=== PATIENT | female | born 1950 | race Caucasian/White ===

== ENCOUNTER 2020-06-29 13:18 | Day surgery (SDC) | payer MEDICARE, SELFPAY ==
[2020-06-23 15:18] VITALS: BMI 33.5
--- NOTE | 2020-06-28 10:55 | P.CONAN_ITS ---
Documented by User: Jory Sarabia 06/28/20 10:56 HPI - Anesthesia Eval Consult details Narrative: 70yo F for Colon[facility] Past Medical History Medical History Diabetes HTN (hypertension) Liver problem Family History Family History Father CVD (cardiovascular disease) Mother No problems noted. Surgical History Surgical History History of total abdominal hysterectomy Social History Social History Smoking Status: Never smoker Use of substances other than those prescribed or required for medical reasons: No Advance Directives Information Provided: No Recently lost weight without trying: No Meds Allergies Allergy/AdvReac Type Severity Reaction Status Date / Time latex Allergy Swelling Verified 06/23/20 15:33 Home Medications Medication Instructions Recorded Confirmed Type gemfibrozil 600 mg tablet 600 mg PO BID 05/28/20 06/23/20 History glipizide 10 mg tablet 10 mg PO BID 05/28/20 06/23/20 History hydrochlorothiazide 12.5 mg tablet 12.5 mg PO QAM 05/28/20 06/23/20 History metformin 1,000 mg tablet 1,000 mg PO BID 05/28/20 06/23/20 History Exam Exam Date and Time: June 28, 2020 1055 Height,Weight and Vital Signs: Height 5 ft 3.5 in Weight 87.09 kg Pertinent Lab Results Pertinent Lab Results: Laboratory Tests 03/09/20 10:15 Sodium 139 Potassium 4.3 Chloride 104 BUN 17 H Creatinine 0.84 Assessment and Plan Assessment Anesthesia Assessment: Chart Reviewed Documented by User: Juventino Fountain 06/29/20 13:39 [facility] Past Medical History Medical History Diabetes HTN (hypertension) Liver problem Family History Family History Father CVD (cardiovascular disease) Mother No problems noted. Surgical History Surgical History History of total abdominal hysterectomy Social History Social History Smoking Status: Never smoker Use of substances other than those prescribed or required for medical reasons: No Advance Directives Information Provided: No Recently lost weight without trying: No Meds Allergies Allergy/AdvReac Type Severity Reaction Status Date / Time latex Allergy Swelling Verified 06/23/20 15:33 Home Medications Medication Instructions Recorded Confirmed Type gemfibrozil 600 mg tablet 600 mg PO BID 05/28/20 06/23/20 History glipizide 10 mg tablet 10 mg PO BID 05/28/20 06/23/20 History hydrochlorothiazide 12.5 mg tablet 12.5 mg PO QAM 05/28/20 06/23/20 History metformin 1,000 mg tablet 1,000 mg PO BID 05/28/20 06/23/20 History Exam Airway Mallampati Class: III TM Dist: >3cm Neck ROM: Full Loose/Missing/Broken Teeth: No Heart: [id number] Lungs: cta b/l Assessment and Plan Assessment Anesthesia Assessment: Anesthesia Plan Discussed, PAT Visit and Chart Reviewed Final Anesthetic Review NPO: Yes ASA Class: III Final Preanesthetic Review: No Changes in Pt Med Stat, Meds/Allgs Chart Reviewed, Consent Obtained/Reviewed and Anes Risks/Benef Reviewed Patient Risk: Low Procedure Risk: Low Assessment/Block/Sedation in SS: Assess/Block/Sedation-SS Anesthetic Plan Anesthetic Plan: MAC: Disposition: Standard PACU
[2020-06-29 13:22] VITALS: BP 175/104; PULSE 98; RESP 20; TEMP 36.8; O2SAT 99; BMI 32.3
--- NOTE | 2020-06-29 13:31 | MHC.SHP ---
Pre-Procedural Eval Section A The patient is an INPATIENT: No The History & Physical has been completed within 30 days and I have reviewed it.: No Section B Chief Complaint: SCREENING Details of Present Illness: No family history of colon cancer. He has a normal bowel pattern, appetite is not great-she is depressed. Taking omeprazole, intermittently- she does not eat greasy food or meats. Typically she does not need omeprazole, but keep it on hand. Relevant Family History (Specify if Yes): No Relevant Social History: None Present Medications: see Short Stay Collaborative assessment Medical History: Significant History (type II diabetes. Hypertension. Cyst on Liver 2ndry to parcystic infection- Paracystic infection treated/resolved.. ) History of Previous Operations: Relevant previous surgery/procedure and date(s) (Total abdominal hysterectomy 1975) Allergies: Allergies Allergy/AdvReac Type Severity Reaction Status Date / Time latex Allergy Swelling Verified 06/23/20 15:33 Review of Systems Sugical H&P ROS: Negative: Constitution, Cardiovascular, Respiratory and Gastrointestinal Exam Surgical H&P Exam: Normal: Heart, Normal: Lungs, Normal: Extremities and Normal: Abdomen Plan Diagnosis/Plan: Unchanged Patient has been examined and remains a candidate for the planned procedure
[2020-06-29] MEDS: Lactated Ringers 1,000 ML 100 ML IVCONT (13:33)
[2020-06-29 13:39] VITALS: BP 154/91; PULSE 98; RESP 20; O2SAT 98
[2020-06-29 13:39] LABS: Glucose, Whole Blood 169 mg/dL (60-115)
[2020-06-29 14:29] VITALS: BP 149/75; PULSE 84; RESP 12; TEMP 36.6; O2SAT 98
[2020-06-29 14:44] VITALS: BP 160/96; PULSE 82; RESP 16; O2SAT 98
--- NOTE | 2020-06-29 17:50 | P.OP_ITS ---
Operative Note Operative Note Narrative: Date of procedure: 06/29/20 Pre-op diagnosis: Colon cancer screening Post-op diagnosis: other (Colon polyps, diverticulosis, hemorrhoids) Procedure: COLONOSCOPY TILL CECUM WITH BIOPSIES Consent: Indications for the procedure and potential complications of bleeding, perforation, reaction to medications and missed diagnosis were discussed with the patient and informed consent was obtained. Instrument: Olympus PCF H 190 L variable stiffness pediatric colonoscope Monitoring: Vital signs and clinical assessment, intermittent blood pressure monitoring, continuous EKG monitoring, Pulse oximetry and Carbon Dioxide monitoring were done throughout the procedure. Colon withdrawl time was 24 minutes. Procedure: The patient was placed in the left lateral decubitis position and pre-procedure medications were administered. After a digital rectal examination of the ano-rectum, the video colonoscope was inserted into the rectum and advanced through the colon to the cecum. The colonoscope was slowly withdrawn in a retrograde panoramic fashion and the colon mucosa was carefully examined including a retroflexed view of the rectum. Findings and interventions are described below. Procedure Difficulty: Narrowing with sharp turn in the sigmioid at 30 cms navigated with difficulty Findings: Terminal Ileum: Not evaluated Cecum: Normal Ascending Colon: Normal Transverse Colon: Two 4-5 mm sessile diminutive appearing polyps removed with a cold biopsy. Descending Colon: Moderate diverticulosis Sigmoid Colon: severe diverticulosis with luminal narrowing Rectum: Normal Ano-rectum: Small internal hemorrhoids Colon preparation:Good after some irrigation Impression and Post Procedure Diagnosis: Colonoscopy Findings: Two small polyps removed Moderate to severe diverticulosis seen in the left colon Small hemorrhoids on retroflexed exam. Plan: Await pathology results Patient has an appointment on 07/06/20 in the GI Clinic with DBEO Cueto. Repeat Colonoscopy interval based on path results - in 5 years if polyps are adenomatous and 10 years if polyps are hyperplastic. Above findings were reviewed with the patient and colon polyps and diverticulosis handouts were given in the discharge area Surgeon: Chloe Lee MD Anesthesia: MAC (Laurie Chong CRNA) Motion Picture Set Up Worker: Kike Queen Estimated blood loss (mL): 0 Pathology: other (A. TC polyps) Condition: stable Disposition: PACU
== END 2020-06-29 15:22 | disposition home or self-care (01) ==
PROVIDERS: PCP Family Medicine; Visit Provider Internal Medicine Gastroenterology
PROC: 0DJD8ZZ Inspection of Lower Intestinal Tract, Via Natural or Artificial Opening Endoscopic (ICD-10-PCS; CPT 45378; principal; 2020-06-29 13:50)
DX: Z12.11 Encounter for screening for malignant neoplasm of colon (principal); D12.3 Benign neoplasm of transverse colon; K57.30 Diverticulosis of large intestine without perforation or abscess without bleeding; K64.8 Other hemorrhoids; I10 Essential (primary) hypertension; E11.9 Type 2 diabetes mellitus without complications; Z79.4 Long term (current) use of insulin; Z79.899 Other long term (current) drug therapy; Z90.710 Acquired absence of both cervix and uterus; Z91.040 Latex allergy status
CPT/HCPCS: 45380; 82947; 88305

== ENCOUNTER 2020-07-15 11:03 | Outpatient (REF) | payer MEDICARE, SELFPAY ==
[2020-07-15 13:51] LABS: Anion Gap 18 (12-20); Blood Urea Nitrogen 27 mg/dL (9-16); Calcium 9.9 mg/dL (8.4-10.2); Carbon Dioxide 26 mmol/L (22-29); Chloride 103 mmol/L (96-108); Cholesterol 243 mg/dL; Estimated Glomerular Filt Rate 53; Glucose Fasting 168 mg/dL (60-99); HDL Cholesterol 39 mg/dL; LDL Cholesterol Calculated 169 mg/dl; Potassium 4.5 mmol/l (3.3-5.1); Sodium 142 mmol/L (135-145); Triglycerides 177 mg/dL
== END 2020-07-15 11:04 | disposition home or self-care (01) ==
LOC: HO.WFDLDS 11:03
PROVIDERS: Visit Provider Hospitalist
DX: E11.49 Type 2 diabetes mellitus with other diabetic neurological complication (principal); E78.00 Pure hypercholesterolemia, unspecified
CPT/HCPCS: 80048; 80061

== ENCOUNTER 2020-07-15 13:37 | Outpatient (REF) | payer MEDICARE, SELFPAY ==
--- NOTE | 2020-07-15 | MM_ITS ---
EXAMINATION: BONE DENSITOMETRY CLINICAL INDICATION: Encounter for screening for osteoporosis. COMPARISON: This is the patient's baseline examination. TECHNIQUE: Using a [employer] DXA System (software version: 13.1) manufactured by [employer], dual-energy x-ray absorptiometry was performed of the lumbar spine and left hip. The images are of good technical quality. Summary results are attached. FINDINGS: AP SPINE L1-L4: BMD 1.233 g/cm2, Z-score 1.4, T-score 0.4, normal. LEFT FEMUR, NECK: BMD 0.607 g/cm2, Z-score -1.9, T-score -3.1, osteoporosis. LEFT FEMUR, TOTAL: BMD 0.702 g/cm2, Z-score -1.5, T-score -2.4, osteopenia. IDENTIFIED RISK FACTORS: Early menopause, secondary osteoporosis, height loss hysterectomy, bilateral oophorectomy. HISTORY OF FRACTURE: None listed. MEDICATIONS: Vitamin D. MM/XR DEXA axial skeleton IMPRESSION: 1. DIAGNOSIS: Osteoporosis based on the lowest T-score value of -3.1 in the femoral neck applying World Health Organization criteria. 2. 10-YEAR FRACTURE RISK PREDICTION, FRAX: Major osteoporotic fracture (clinical spine, forearm, hip or shoulder) 18.1%. Hip fracture 5.8%. 3. Treatment Recommendations: NOF guidelines recommend consideration for treatment in postmenopausal women and men age 50 and older presenting with the following: -A hip or vertebral (clinical or morphometric) fracture. -T-score less than or equal to -2.5 at the femoral neck or spine after appropriate evaluation to exclude secondary causes. -Low bone mass at the hip or spine and a 10-year fracture probability by FRAX of greater than or equal to 3% for hip fracture or greater than or equal to 20% for major osteoporotic fracture based on the [place] adapted WHO algorithm. 4. Other Recommendations: All treatment decisions require clinical judgment and consideration of individual patient factors, including patient preferences, comorbidities, previous drug use, risk factors not captured in the FRAX model (e.g. frailty, falls, vitamin D deficiency, increased bone turnover, interval significant decline in bone density) and possible under or overestimation of fracture risk by FRAX. Additional medical evaluation for secondary cause of low bone mineral density may be appropriate. FUTURE SCAN RECOMMENDATION: People with diagnosed cases of osteoporosis or at high risk for fracture should have regular bone mineral density tests. For patients eligible for Medicare, routine testing is allowed once every 2 years. The testing frequency can be increased to one year for patients who have rapidly progressing disease, those who are receiving or discontinuing medical therapy to restore bone mass, or have additional risk factors.
--- NOTE | 2020-07-15 | MM_ITS ---
EXAMINATION: MM SCREENING DIGITAL BREAST TOMOSYNTHESIS, BILATERAL CLINICAL INFORMATION: Screening. Asymptomatic. Prior outside mammography from [place] unavailable. Age 70. No known family history breast cancer. The lifetime risk of breast cancer based on the Tyrer-Cuzick Model is 2%. COMPARISON: None. TECHNIQUE: Digital breast tomosynthesis is performed in both the craniocaudal and mediolateral oblique views along with computer-aided detection (CAD). Synthesized 2D images are generated from the tomosynthesis. Additional right CC and right cleavage view are provided FINDINGS: There are scattered areas of fibroglandular density (ACR BI-RADS breast composition Category b). There are no significant masses, abnormal calcifications, or other abnormalities. There is mild bilateral retroareolar duct ectasia. Dermal lesion overlies the posterior upper outer left breast. The skin contours are smooth. MM/MM tomosynthesis screening BI IMPRESSION: No mammographic evidence of malignancy. ASSESSMENT: BI-RADS 2: Benign RECOMMENDATION: Routine annual mammography screening. This patient's information was entered into a reminder system with a target due date for their next mammogram.
== END 2020-07-15 13:38 | disposition home or self-care (01) ==
LOC: HO.MAMMO 13:37
PROVIDERS: PCP Family Medicine; Visit Provider Family Medicine
DX: Z13.820 Encounter for screening for osteoporosis (principal); Z78.0 Asymptomatic menopausal state; Z79.899 Other long term (current) drug therapy; Z90.710 Acquired absence of both cervix and uterus; Z90.722 Acquired absence of ovaries, bilateral; Z12.31 Encounter for screening mammogram for malignant neoplasm of breast
CPT/HCPCS: 77063; 77067; 77080

== ENCOUNTER 2020-07-29 08:00 | Outpatient (REF) | payer MEDICARE, SELFPAY ==
[2020-07-29 12:10] LABS: Microalbum/Creatinine Ratio Ur 41.2 ug/mg cr
== END 2020-07-29 08:01 | disposition home or self-care (01) ==
LOC: HO.LAB 08:00
PROVIDERS: Visit Provider Family Medicine
DX: E11.49 Type 2 diabetes mellitus with other diabetic neurological complication (principal)
CPT/HCPCS: 82043

== ENCOUNTER 2020-12-09 14:00 | Outpatient (RCR) | payer MEDICARE, SELFPAY | END 2020-12-30 08:44 | disposition other institution (70) | LOC: HO.PTWFD 14:00 | PROVIDERS: Visit Provider Family Medicine | DX: S39.012D Strain of muscle, fascia and tendon of lower back, subsequent encounter (principal) | CPT/HCPCS: 97110; 97162; 97535 ==

== ENCOUNTER 2021-03-30 11:14 | Outpatient (REF) | payer MEDICARE, SELFPAY ==
--- NOTE | ~2021-03-30 | XR_ITS ---
EXAMINATION: CERVICAL AND LUMBAR SPINE X-RAYS CLINICAL INFORMATION: Pain COMPARISON: Previous chest and left rib x-ray April 2020 and mammogram June 2020 TECHNIQUE: 4 views of the cervical spine including swimmer's view and 3 views of the lumbar spine FINDINGS: Cervical spine: Bone alignment is normal. No fracture or dislocation is seen. There is evidence of degenerative spondylosis at C4-C5 and C5-C6. Prevertebral soft tissues are normal. Lumbar spine: Bone alignment is normal. No fracture or dislocation is seen. There is evidence of degenerative disc disease from L3-L4 to L5-S1. There is lower lumbar spine facet arthritis. There is degenerative spondylosis of the lower thoracic spine. There is evidence of atherosclerotic disease. There is curvilinear increased attenuation or calcifications with lucent center projecting over the right upper quadrant. When compared with prior chest x-ray this is stable and probably related to the liver. XR/XR cervical spine 3V IMPRESSION: Cervical spine: Degenerative spondylosis at C4-C5 and C5-C6. Lumbar spine: Multilevel degenerative changes. Stable right upper quadrant curvilinear calcifications with lucent center probably related to the liver from April 2020 chest and left rib x-rays. Correlation with clinical history is recommended. This could be better evaluated with CT of the liver if clinically indicated.
--- NOTE | ~2021-03-30 | XR_ITS ---
EXAMINATION: CERVICAL AND LUMBAR SPINE X-RAYS CLINICAL INFORMATION: Pain COMPARISON: Previous chest and left rib x-ray April 2020 and mammogram June 2020 TECHNIQUE: 4 views of the cervical spine including swimmer's view and 3 views of the lumbar spine FINDINGS: Cervical spine: Bone alignment is normal. No fracture or dislocation is seen. There is evidence of degenerative spondylosis at C4-C5 and C5-C6. Prevertebral soft tissues are normal. Lumbar spine: Bone alignment is normal. No fracture or dislocation is seen. There is evidence of degenerative disc disease from L3-L4 to L5-S1. There is lower lumbar spine facet arthritis. There is degenerative spondylosis of the lower thoracic spine. There is evidence of atherosclerotic disease. There is curvilinear increased attenuation or calcifications with lucent center projecting over the right upper quadrant. When compared with prior chest x-ray this is stable and probably related to the liver. XR/XR lumbar spine 2-3V IMPRESSION: Cervical spine: Degenerative spondylosis at C4-C5 and C5-C6. Lumbar spine: Multilevel degenerative changes. Stable right upper quadrant curvilinear calcifications with lucent center probably related to the liver from April 2020 chest and left rib x-rays. Correlation with clinical history is recommended. This could be better evaluated with CT of the liver if clinically indicated.
[2021-03-30 12:42] LABS: Estimated Average Glucose 151 mg/dL; Hemoglobin A1c % 6.9 %
[2021-03-30 13:04] LABS: Creatinine Urine 190.83 mg/dL; Microalbum/Creatinine Ratio Ur 26.2 ug/mg cr
[2021-03-30 13:05] LABS: Anion Gap 13 (12-20); Blood Urea Nitrogen 24 mg/dL (9-16); Carbon Dioxide 27 mmol/L (22-29); Chloride 106 mmol/L (96-108); Estimated Glomerular Filt Rate 39; Potassium 4.4 mmol/L (3.3-5.1); Sodium 142 mmol/L (135-145)
[2021-03-30 13:06] LABS: Alanine Aminotransferase 17 U/L (0-31); Albumin Level 4.4 g/dL (3.5-5.0); Alkaline Phosphatase 49 U/L (39-117); Aspartate Amino Transferase 18 U/L (5-31); Bilirubin Total 0.3 mg/dL (0.0-1.0); Glucose Fasting 174 mg/dL (60-99); Total Protein 7.1 g/dL (6.5-8.0)
== END 2021-03-30 11:15 | disposition home or self-care (01) ==
LOC: HO.WFDLDS 11:14
PROVIDERS: Absent Provider Chiropractor; PCP Family Medicine; Visit Provider Family Medicine
DX: Z00.00 Encounter for general adult medical examination without abnormal findings (principal); M54.2 Cervicalgia; M54.5 Low back pain; E11.49 Type 2 diabetes mellitus with other diabetic neurological complication; I10 Essential (primary) hypertension
CPT/HCPCS: 36415; 72040; 72100; 80053; 82043; 83036

== ENCOUNTER 2021-07-13 11:17 | Outpatient (REF) | payer MEDICARE, SELFPAY ==
[2021-07-13 14:39] LABS: Creatinine Urine 128.87 mg/dL; Microalbum/Creatinine Ratio Ur 59.7 ug/mg cr
[2021-07-13 14:40] LABS: Alanine Aminotransferase 15 U/L (0-31); Albumin Level 4.2 g/dL (3.5-5.0); Alkaline Phosphatase 50 U/L (39-117); Anion Gap 17 (12-20); Aspartate Amino Transferase 19 U/L (5-31); Bilirubin Total 0.3 mg/dL (0.0-1.0); Blood Urea Nitrogen 22 mg/dL (9-16); Calcium 9.4 mg/dL (8.4-10.2); Carbon Dioxide 24 mmol/L (22-29); Chloride 106 mmol/L (96-108); Estimated Glomerular Filt Rate 43; Glucose Fasting 110 mg/dL (60-99); Potassium 4.5 mmol/L (3.3-5.1); Sodium 142 mmol/L (135-145); Total Protein 6.9 g/dL (6.5-8.0)
== END 2021-07-13 11:18 | disposition home or self-care (01) ==
LOC: HO.WFDLDS 11:17
PROVIDERS: Visit Provider Family Medicine
DX: Z00.00 Encounter for general adult medical examination without abnormal findings (principal); E11.49 Type 2 diabetes mellitus with other diabetic neurological complication; I10 Essential (primary) hypertension
CPT/HCPCS: 36415; 80053; 82043

== ENCOUNTER 2021-07-20 11:11 | Outpatient (REF) | payer MEDICARE, SELFPAY ==
[2021-07-20 14:24] LABS: Creatinine Urine 126.57 mg/dL; Microalbum/Creatinine Ratio Ur 43.4 ug/mg cr
[2021-07-20 14:29] LABS: Estimated Average Glucose 143 mg/dL; Hemoglobin A1c % 6.6 %
[2021-07-20 14:32] LABS: Anion Gap 17 (12-20); Blood Urea Nitrogen 24 mg/dL (9-16); Calcium 9.4 mg/dL (8.4-10.2); Carbon Dioxide 22 mmol/L (22-29); Chloride 106 mmol/L (96-108); Cholesterol 203 mg/dL; Estimated Glomerular Filt Rate 42; Glucose Random 156 mg/dL (60-115); HDL Cholesterol 32 mg/dL; LDL Cholesterol Calculated 132 mg/dl; Potassium 4.2 mmol/L (3.3-5.1); Sodium 141 mmol/L (135-145); Triglycerides 195 mg/dL
== END 2021-07-20 11:12 | disposition home or self-care (01) ==
LOC: HO.WFDLDS 11:11
PROVIDERS: Visit Provider Family Medicine
DX: Z00.00 Encounter for general adult medical examination without abnormal findings (principal); I10 Essential (primary) hypertension; E11.9 Type 2 diabetes mellitus without complications
CPT/HCPCS: 36415; 80048; 80061; 82043; 83036

== ENCOUNTER 2021-09-17 13:57 | Outpatient (REF) | payer MEDICARE, SELFPAY ==
--- NOTE | ~2021-09-17 | XR_ITS ---
EXAMINATION: XR LEFT SHOULDER, LUMBAR SPINE AND LEFT HIP CLINICAL INFORMATION: Fall. Pain. COMPARISON: None. TECHNIQUE: Left hip 2 views. Lumbar spine 3 views. Left shoulder 4 views. FINDINGS: Left Hip: There is no visible acute fracture, dislocation or subluxation. There is a moderate-sized inferior left greater trochanter enthesophyte. The soft tissues are normal. Lumbar Spine: There is normal lumbar lordosis. The vertebral heights and alignment is normal. There is loss of L3-L4, L4-L5 and L5/S1 disc heights with moderate ventral spondylosis. Moderate ventral spondylosis seen at T12-L1 disc level. No acute fracture, lytic or sclerotic process seen. SI joints are symmetrical. Left Shoulder: There is no visible acute fracture, dislocation or subluxation seen. There are moderate enthesophytes along the AC joint, acromion and mild periarticular spurring along the glenohumeral joints The soft tissues are normal. XR/XR lumbar spine 2-3V IMPRESSION: Unremarkable left hip. Degenerative disc changes L4-L5 and L5-S1 disc levels with moderate ventral spondylosis. Mild degenerative changes left shoulder joint. No acute fracture or dislocation.
--- NOTE | ~2021-09-17 | XR_ITS ---
EXAMINATION: XR LEFT SHOULDER, LUMBAR SPINE AND LEFT HIP CLINICAL INFORMATION: Fall. Pain. COMPARISON: None. TECHNIQUE: Left hip 2 views. Lumbar spine 3 views. Left shoulder 4 views. FINDINGS: Left Hip: There is no visible acute fracture, dislocation or subluxation. There is a moderate-sized inferior left greater trochanter enthesophyte. The soft tissues are normal. Lumbar Spine: There is normal lumbar lordosis. The vertebral heights and alignment is normal. There is loss of L3-L4, L4-L5 and L5/S1 disc heights with moderate ventral spondylosis. Moderate ventral spondylosis seen at T12-L1 disc level. No acute fracture, lytic or sclerotic process seen. SI joints are symmetrical. Left Shoulder: There is no visible acute fracture, dislocation or subluxation seen. There are moderate enthesophytes along the AC joint, acromion and mild periarticular spurring along the glenohumeral joints The soft tissues are normal. XR/XR shoulder LT min 2V IMPRESSION: Unremarkable left hip. Degenerative disc changes L4-L5 and L5-S1 disc levels with moderate ventral spondylosis. Mild degenerative changes left shoulder joint. No acute fracture or dislocation.
--- NOTE | ~2021-09-17 | XR_ITS ---
EXAMINATION: XR LEFT SHOULDER, LUMBAR SPINE AND LEFT HIP CLINICAL INFORMATION: Fall. Pain. COMPARISON: None. TECHNIQUE: Left hip 2 views. Lumbar spine 3 views. Left shoulder 4 views. FINDINGS: Left Hip: There is no visible acute fracture, dislocation or subluxation. There is a moderate-sized inferior left greater trochanter enthesophyte. The soft tissues are normal. Lumbar Spine: There is normal lumbar lordosis. The vertebral heights and alignment is normal. There is loss of L3-L4, L4-L5 and L5/S1 disc heights with moderate ventral spondylosis. Moderate ventral spondylosis seen at T12-L1 disc level. No acute fracture, lytic or sclerotic process seen. SI joints are symmetrical. Left Shoulder: There is no visible acute fracture, dislocation or subluxation seen. There are moderate enthesophytes along the AC joint, acromion and mild periarticular spurring along the glenohumeral joints The soft tissues are normal. XR/XR hip LT min 2V IMPRESSION: Unremarkable left hip. Degenerative disc changes L4-L5 and L5-S1 disc levels with moderate ventral spondylosis. Mild degenerative changes left shoulder joint. No acute fracture or dislocation.
== END 2021-09-17 13:58 | disposition home or self-care (01) ==
LOC: HO.HMGCX 13:57
PROVIDERS: PCP Family Medicine; Visit Provider Physician Assistant
DX: M25.552 Pain in left hip (principal); M54.50 Low back pain, unspecified; M25.512 Pain in left shoulder
CPT/HCPCS: 72100; 73030; 73502

== ENCOUNTER 2021-09-19 15:38 | Outpatient (REF) | payer MEDICARE, SELFPAY ==
--- NOTE | ~2021-09-19 | MM_ITS ---
EXAMINATION: MM SCREENING DIGITAL BREAST TOMOSYNTHESIS, BILATERAL CLINICAL INFORMATION: Screening. Asymptomatic. The lifetime risk of breast cancer based on the Tyrer-Cuzick Model is 2%. COMPARISON: Mammography: 07/15/2020 (new baseline) TECHNIQUE: Digital breast tomosynthesis is performed in both the craniocaudal and mediolateral oblique views along with computer-aided detection (CAD). Synthesized 2D images are generated from the tomosynthesis. FINDINGS: There are scattered areas of fibroglandular density (ACR BI-RADS breast composition Category b). There are no significant masses, abnormal calcifications, or other abnormalities. Parenchymal pattern is similar to prior study. There is stable bilateral mild subareolar duct ectasia. Dermal lesion again seen overlying posterior outer left breast. There are no significant changes. MM/MM tomosynthesis screening BI IMPRESSION: There are no significant changes from prior study. ASSESSMENT: BI-RADS 2: Benign RECOMMENDATION: Routine annual mammography screening. This patient's information was entered into a reminder system with a target due date for their next mammogram.
== END 2021-09-19 15:39 | disposition home or self-care (01) ==
LOC: HO.MAMMO 15:38
PROVIDERS: PCP Family Medicine; Visit Provider Hospitalist
DX: Z12.31 Encounter for screening mammogram for malignant neoplasm of breast (principal)
CPT/HCPCS: 77063; 77067

== ENCOUNTER 2022-03-24 14:22 | Outpatient (REF) | payer MEDICARE, SELFPAY ==
[2022-03-24 16:42] LABS: Alanine Aminotransferase 10 U/L (0-31); Albumin Level 4.3 g/dL (3.5-5.0); Alkaline Phosphatase 51 U/L (39-117); Anion Gap 16 (12-20); Aspartate Amino Transferase 16 U/L (5-31); Bilirubin Total 0.5 mg/dL (0.0-1.0); Blood Urea Nitrogen 24 mg/dL (9-16); Calcium 9.6 mg/dL (8.4-10.2); Carbon Dioxide 28 mmol/L (22-29); Chloride 105 mmol/L (96-108); Cholesterol 218 mg/dL; Estimated Glomerular Filt Rate 48; Glucose Fasting 127 mg/dL (60-99); HDL Cholesterol 34 mg/dL; LDL Cholesterol Calculated 150 mg/dl; Potassium 4.5 mmol/L (3.3-5.1); Sodium 144 mmol/L (135-145); Triglycerides 171 mg/dL
== END 2022-03-24 14:23 | disposition home or self-care (01) ==
LOC: HO.HMGCLDS 14:22
PROVIDERS: PCP Family Medicine; Visit Provider Family Medicine
DX: Z00.00 Encounter for general adult medical examination without abnormal findings (principal); E78.5 Hyperlipidemia, unspecified
CPT/HCPCS: 36415; 80053; 80061

== ENCOUNTER 2022-07-18 11:37 | Outpatient (REF) | payer MEDICARE, SELFPAY ==
[2022-07-18 13:59] LABS: MANUAL DIFF FLAG NO
[2022-07-18 14:04] LABS: Basophils Percent Auto 0.5 % (0-2); Eosinophils Absolute Auto 0.1 X10*3/uL (0.0-0.4); Eosinophils Percent Auto 2.2 % (0-4); Hematocrit 36.3 % (37.0-47.0); Hemoglobin 11.6 g/dl (12.0-16.0); Imm Gran Abs Auto 0.02 X10*3/uL (0.00-0.03); Imm Gran Pct Auto 0.5 % (0.0-0.4); Lymphocytes Absolute Auto 1.5 X10*3/uL (1.2-4.9); Lymphocytes Percent Auto 37.2 % (20-40); Mean Corpuscular Hemoglobin 29.5 pg (27.0-33.0); Mean Corpuscular Volume 92.4 fL (80.0-98.0); Mean Platelet Volume 12.1 fL (9.4-12.3); Monocytes Absolute Auto 0.3 X10*3/uL (0.1-1.2); Monocytes Percent Auto 8.4 % (2-11); Neutrophils Absolute Auto 2.1 x10*3/uL (2.0-8.3); Neutrophils Percent Auto 51.2 % (45-73); Platelet Count 214 X10*3/uL (160-400); Red Blood Count 3.93 X10*6/uL (4.20-5.50)
[2022-07-18 14:14] LABS: Estimated Average Glucose 160 mg/dL; Hemoglobin A1c % 7.2 %
[2022-07-18 14:45] LABS: Alanine Aminotransferase 12 U/L (0-31); Albumin Level 4.3 g/dL (3.5-5.0); Alkaline Phosphatase 54 U/L (39-117); Anion Gap 16 (12-20); Aspartate Amino Transferase 16 U/L (5-31); Bilirubin Total 0.6 mg/dL (0.0-1.0); Blood Urea Nitrogen 25 mg/dL (9-16); Carbon Dioxide 27 mmol/L (22-29); Chloride 103 mmol/L (96-108); Cholesterol 194 mg/dL; Estimated Glomerular Filt Rate 46; Glucose Fasting 184 mg/dL (60-99); HDL Cholesterol 35 mg/dL; LDL Cholesterol Calculated 121 mg/dl; Potassium 4.9 mmol/L (3.3-5.1); Sodium 141 mmol/L (135-145); Triglycerides 191 mg/dL
== END 2022-07-18 11:38 | disposition home or self-care (01) ==
LOC: HO.WFDLDS 11:37
PROVIDERS: Visit Provider Nurse Practitioner Family
DX: E78.5 Hyperlipidemia, unspecified (principal); E11.9 Type 2 diabetes mellitus without complications
CPT/HCPCS: 36415; 80053; 80061; 83036; 85025

== ENCOUNTER 2022-09-21 15:05 | Outpatient (REF) | payer MEDICARE, SELFPAY ==
--- NOTE | ~2022-09-21 | MM_ITS ---
EXAMINATION: MM SCREENING DIGITAL BREAST TOMOSYNTHESIS, BILATERAL CLINICAL INFORMATION: Screening. Asymptomatic. The lifetime risk of breast cancer based on the Tyrer-Cuzick Model is 2%. COMPARISON: Mammography: 09/19/2021, 07/15/2020 (new baseline) TECHNIQUE: Digital breast tomosynthesis is performed in both the craniocaudal and mediolateral oblique views along with computer-aided detection (CAD). Synthesized 2D images are generated from the tomosynthesis. Additional bilateral MLO views are provided. FINDINGS: There are scattered areas of fibroglandular density (ACR BI-RADS breast composition Category b). There are no significant masses, abnormal calcifications, or other abnormalities. Parenchymal pattern is similar to prior studies. Mild bilateral anterior duct ectasia is similar to the prior studies. There is a dermal lesion overlying the posterior upper outer left breast. The axilla are unremarkable. No significant changes from prior studies. MM/MM tomosynthesis screening BI IMPRESSION: No mammographic evidence of malignancy. ASSESSMENT: BI-RADS 2: Benign RECOMMENDATION: Routine annual mammography screening. This patient's information was entered into a reminder system with a target due date for their next mammogram.
== END 2022-09-21 15:06 | disposition home or self-care (01) ==
LOC: HO.MAMMO 15:05
PROVIDERS: PCP Family Medicine; Visit Provider Family Medicine
DX: Z12.31 Encounter for screening mammogram for malignant neoplasm of breast (principal)
CPT/HCPCS: 77063; 77067

== ENCOUNTER 2022-11-16 15:14 | Outpatient (REF) | payer MEDICARE, SELFPAY ==
--- NOTE | ~2022-11-16 | XR_ITS ---
EXAMINATION: XR chest 2V CLINICAL INFORMATION: Reason for Exam R06.02 - Shortness of breath COMPARISON: Chest radiograph 05/14/2020 TECHNIQUE: 2 views of the chest FINDINGS: Clear lungs. No pneumothorax or pleural effusion. Unchanged cardiomediastinal silhouette. XR/XR chest 2V Impression: No acute cardiopulmonary findings.
== END 2022-11-16 15:15 | disposition home or self-care (01) ==
LOC: HO.XRAY 15:14
PROVIDERS: PCP Family Medicine; Visit Provider Family Medicine
DX: R07.81 Pleurodynia (principal); R06.02 Shortness of breath
CPT/HCPCS: 71046

== ENCOUNTER 2022-11-23 12:23 | Outpatient (REF) | payer MEDICARE, SELFPAY ==
[2022-11-23 14:14] LABS: Estimated Average Glucose 154 mg/dL
[2022-11-23 14:38] LABS: Appearance Urine Turbid; Color Urine Yellow; Glucose Urine UA Negative (Negative); Leukocyte Esterase Urine Moderate (2+) (Negative); Nitrite Urine Positive (Negative); UMIC TRIGGER UA YES; Urine Blood Moderate (2+) (Negative); Urine Ketones Negative (Negative); Urine Protein 30 (1+) mg/dL (Neg-Trace)
[2022-11-23 14:48] LABS: Bacteria Urine 3+ (None Seen); Hyaline Casts Urine 0-2 /LPF (0-2); WBC Clumps Urine Present; WBC Urine >50 /HPF (0-5)
[2022-11-23 15:05] LABS: Alanine Aminotransferase 15 U/L (0-31); Albumin Level 3.9 g/dL (3.5-5.0); Alkaline Phosphatase 50 U/L (39-117); Anion Gap 14 (12-20); Aspartate Amino Transferase 17 U/L (5-31); Bilirubin Total 0.4 mg/dL (0.0-1.0); Blood Urea Nitrogen 22 mg/dL (9-16); Calcium 9.5 mg/dL (8.4-10.2); Carbon Dioxide 24 mmol/L (22-29); Chloride 111 mmol/L (96-108); Cholesterol 235 mg/dL; Creatinine Urine 143.73 mg/dL; Estimated Glomerular Filt Rate 54; Glucose Fasting 142 mg/dL (60-99); HDL Cholesterol 34 mg/dL; LDL Cholesterol Calculated 151 mg/dl; Microalbum/Creatinine Ratio Ur 91.8 ug/mg cr; Potassium 4.6 mmol/L (3.3-5.1); Sodium 144 mmol/L (135-145); Total Protein 6.3 g/dL (6.5-8.0); Triglycerides 252 mg/dL
[2022-11-23 15:21] LABS: TSH reflex Free T4 1.41 uIU/mL (0.32-4.0)
== END 2022-11-23 12:24 | disposition home or self-care (01) ==
LOC: HO.WFDLDS 12:23
PROVIDERS: Visit Provider Family Medicine
DX: Z00.00 Encounter for general adult medical examination without abnormal findings (principal); R73.01 Impaired fasting glucose; I10 Essential (primary) hypertension
CPT/HCPCS: 36415; 80053; 80061; 81001; 82043; 83036; 84443

== ENCOUNTER 2023-05-16 15:37 | Outpatient (AMB) | payer MEDICARE, SELFPAY ==
--- NOTE | 2023-05-16 15:41 | A.OFFPC_ITS ---
Vital Signs 05/16/23 15:44 Height 5 ft 3 in Weight 190 lb BMI 33.7 BP 110/70 Blood Pressure Location Lt brachial Position Sitting Pulse 71 Pulse Source Pulse Oximeter Pulse Oximetry (%) 100 Oxygen Delivery Method Room Air Intake Visit Reasons: f/u diabetes and hypertensio Intake Note: Patient is here to follow up on diabetes and hypertension. Allergies latex Allergy (Verified 05/16/23 15:45) Swelling Tobacco use date assessed: 09/14/22 Dental Screening Dental Screen Date: 05/16/23 Did you have a dental visit in the last 12 months?: Yes Did you have a dental problem in the last 6 months where you did not have access to dental care?: No Was dental information given to patient?: Patient has dentist HPI f/u diabetes and hypertensio HPI Details 73 y/o female presents to f/u diabetes a nd hypertension. A1c today 05/16/23 7.3%, which had worsened from 7.0%. Pt was prescribed Trulicity and blood sugars had improved to controlled range. However, lewis of Trulicity had gone beyond what she can afford. Blood pressure today 110/70. She is on hydrochlorothiazide 12.5mg daily and enalapril 20mg b.i.d. Pt has UTI symptoms today. HPI Comments History of Present Illness Details Documentation assistance for Sherwin Champion MD, was provided by Jarrell Beltran,?Publications Inspector on 05/16/2023 4:18 PM RHIANNON. I, Dr. Champion, have read, observed, and verified documentation.? [facility] Medical History Diabetes Liver problem HTN (hypertension) Surgical History History of total abdominal hysterectomy Family History Father CVD (cardiovascular disease) Mother No problems noted. Social History Housing: Apartment Alcohol intake: never Patient Tobacco Use Status: Never used Tobacco e-Cigarette/Vaping Use: Never Used Second Hand Smoke Exposure: No service: No Current occupational status: retired Current occupational exposures/hazards: No Cognitive needs: No Hearing needs: Yes (hearing aide) Vision needs: Yes (glasses) Questionnaire Thrive Questionnaire Date Thrive assessed: 09/14/22 LESLEE-7 AMB Questionnaire LESLEE-7 Date LESLEE - 7 assessed: 09/14/22 Source: Developed by Drs. Bill Whittaker, Isamar Sutherland, Scott Lopez and colleagues, with an educational ray from [employer]. Review of Systems Const Denies chills, Denies fatigue, Denies fever(s), Denies headache(s) and Denies weakness ENT Denies dizziness and Denies headache(s) Card Denies chest pain, Denies lightheadedness, Denies dyspnea and Denies other (Palpitations) Resp Denies cough, Denies dyspnea, Denies wheezing and Denies other ( shortness of breath) Musc Denies numbness and Denies tingling Neuro Denies dizziness, Denies headache(s), Denies numbness, Denies tingling, Denies paresthesias and Denies weakness Psych Denies anxiety and Denies depression Endo Denies fatigue Aller/Immun Denies wheezing Physical exam (Primary Care) Vital Signs: Last Vital Signs Pulse 71 05/16/23 15:44 BP 110/70 05/16/23 15:44 Pulse Ox 100 05/16/23 15:44 Oxygen Delivery Method Room Air 05/16/23 15:44 BMI result Body Mass Index 33.7 Tobacco/Smoking Status: Tobacco use Status Tobacco use date assessed 09/14/22 05/16/23 15:43 Patient Tobacco Use Status Never used Tobacco 05/16/23 15:43 e-Cigarette/Vaping Use Never Used 05/16/23 15:43 Thrive Assessment: Date of Thrive Assessment Date Thrive assessed 09/14/22 05/16/23 15:43 Const General: no acute distress and well developed Nutritional Appearance: well nourished Orientation/consciousness: patient oriented x3 HENMT Head: Yes normocephalic and Yes atraumatic Eyes General: appearance normal, both eyes and all related structures Pupils: Equal, round and reactive pupils present EOM: EOMs intact bilaterally Resp Effort & Inspection: normal respiratory effort Auscultation: clear to auscultation bilaterally Cardio Rate: regular rate Rhythm: regular rhythm Heart sounds: S1 normal heart sound present, S2 normal heart sound present, no gallops, no murmurs and no rubs Neuro General: patient oriented x3 and gait normal Cranial nerves: Yes Equal, round and reactive pupils present Psych Affect: normal affect Results AMB Urinalysis Dipstick UR Leukocytes Moderate Last Edit by Naomi Wood CMA on 05/16/23 16:03 UR Nitrite Negative Last Edit by Naomi Wood CMA on 05/16/23 16:03 UR Urobilinogen Normal Last Edit by Naomi Wood CMA on 05/16/23 16:03 UR Protein 30 Last Edit by Naomi Wood CMA on 05/16/23 16:03 UR Ph 6.0 Last Edit by Naomi Wood CMA on 05/16/23 16:03 UR Blood Small Last Edit by Naomi Wood CMA on 05/16/23 16:03 UR Specific [place] 1.015 Last Edit by Naomi Wood CMA on 05/16/23 16:0 3 UR Ketone Negative Last Edit by Naomi Wood CMA on 05/16/23 16:03 UR Bilirubin Negative Last Edit by Naomi Wood CMA on 05/16/23 16:03 UR Glucose Negative Last Edit by Naomi Wood CMA on 05/16/23 16:03 AMB Hemoglobin A1c AMB Hemoglobin A1c 7.3 % Last Edit by Naomi Wood CMA on 05/16/23 16:19 Results Reviewed Results Reviewed: Laboratory Last Values Hgb A1c (Clinic) 7.3 % (4.0-6.0) H 05/16/23 16:18 Urine pH (Clinic) 6.0 05/16/23 15:59 Specific [place] (Clinic) 1.015 05/16/23 15:59 Ur Protein (Clinic) 30 05/16/23 15:59 Ur Ketones (Clinic) Negative 05/16/23 15:59 Urine Blood (Clinic) Small 05/16/23 15:59 Urine Nitrite Negative 05/16/23 15:59 Urine Bilirubin (Clinic) Negative 05/16/23 15:59 Urobilinogen (Clinic) Normal 05/16/23 15:59 Leukocyte Esterase (Clinic) Moderate 05/16/23 15:59 Urine Glucose (Clinic) Negative 05/16/23 15:59 Assessment and Plan Assessment & Plan (1) Essential hypertension: Code(s): I10 - Essential (primary) hypertension Plan: Blood pressure is controlled. Goal is less than 140/90 Continue current medications (2) Diabetes type 2, controlled: Onset Date: Unknown Code(s): E11.9 - Type 2 diabetes mellitus without complications Qualifiers: Diabetes mellitus complication detail: with other neurological c omplication Diabetes mellitus complication status: with neurologic complications Diabetes mellitus correction insulin use: without assistant terminal manager use Qualified Code(s): E11.49 - Type 2 diabetes mellitus with other diabetic neurological complication Plan: A1c had been controlled after adding Trulicity. However, insurance is telling her she has not met her deductible and she is now on able to afford the higher cost of this medication so she has not had and her A1c shows that she is back out of control. Asking medical claims examiner to look into prior authorization or any other options as this medications has helped when many others did not. (3) UTI (urinary tract infection): Code(s): N39.0 - Urinary tract infection, site not specified Plan: In patient notes some dysuria and her urine dip today is suspicious for UTI. She has tolerated Bactrim DS in the past and this has helped with prior UTIs. I resend a script for Bactrim. Orders: Orders AMB Urinalysis Dipstick Today N39.0 - Urinary tract infection, site not specified AMB Hemoglobin A1c Today Z13.9 - Encounter for screening, unspecified Medications: Changed From dulaglutide (Trulicity) 0.75 mg (0.5 mL) subcut QWEEK 28 days 2 mL 4RF To dulaglutide 1.5 mg (0.5 mL) subcut QWEEK 2 mL 4RF 28 days Refilled sulfamethoxazole-trimethoprim 800-160 mg (Bactrim DS) 1 tab PO Q12H 10 tabs 0RF 5 days trazodone 25 mg (1/2 x 50 mg) PO BEDTIME PRN 15 tabs 0RF sleep 30 days Coding Level of Care Code Est Pt Level 3 (20079) Diagnoses Essential hypertension I10 Controlled type 2 diabetes mellitus with other neurologic complication, without long-term current use of insulin E11.49 Diabetes mellitus complication detail: with other neurological complication Diabetes mellitus complication status: with neurologic complications Diabetes mellitus assistant terminal manager insulin use: without correction use UTI (urinary tract infection) N39.0
[2023-05-16 15:44] VITALS: BP 110/70; PULSE 71; O2SAT 100; BMI 33.7
== END 2023-05-16 16:40 | disposition home or self-care (01) ==
PROVIDERS: PCP Family Medicine; Visit Provider Family Medicine
DX: I10 Essential (primary) hypertension (principal); E11.49 Type 2 diabetes mellitus with other diabetic neurological complication; N39.0 Urinary tract infection, site not specified; R30.0 Dysuria
CPT/HCPCS: 81002; 83036; 99213

== ENCOUNTER 2023-06-25 12:48 | Outpatient (REF) | payer MEDICARE, SELFPAY ==
[2023-06-25 14:22] LABS: Estimated Average Glucose 154 mg/dL
[2023-06-25 14:49] LABS: Alanine Aminotransferase 15 U/L (0-31); Albumin Level 4.2 g/dL (3.5-5.0); Alkaline Phosphatase 41 U/L (39-117); Anion Gap 16 (12-20); Aspartate Amino Transferase 17 U/L (5-31); Bilirubin Total 0.5 mg/dL (0.0-1.0); Blood Urea Nitrogen 27 mg/dL (9-16); Carbon Dioxide 26 mmol/L (22-29); Chloride 106 mmol/L (96-108); Estimated Glomerular Filt Rate 47; Glucose Random 137 mg/dL (60-115); Potassium 4.3 mmol/L (3.3-5.1); Sodium 144 mmol/L (135-145); Total Protein 6.9 g/dL (6.5-8.0)
== END 2023-06-25 12:49 | disposition home or self-care (01) ==
LOC: HO.WFDLDS 12:48
PROVIDERS: Visit Provider Family Medicine
DX: Z00.00 Encounter for general adult medical examination without abnormal findings (principal); E11.9 Type 2 diabetes mellitus without complications
CPT/HCPCS: 36415; 80053; 83036

== ENCOUNTER 2023-06-29 16:07 | Outpatient (AMB) | payer MEDICARE, SELFPAY ==
[2023-06-29 16:12] VITALS: BP 116/74; PULSE 78; O2SAT 100; BMI 34.5
--- NOTE | 2023-06-29 16:12 | A.OFFPC_ITS ---
Vital Signs 06/29/23 16:12 Height 5 ft 3 in Weight 195 lb BMI 34.5 BP 116/74 Blood Pressure Location Lt brachial Position Sitting Pulse 78 Pulse Source Pulse Oximeter Pulse Oximetry (%) 100 Oxygen Delivery Method Room Air Intake Visit Reasons: f/u diabetes Allergies latex Allergy (Verified 05/16/23 15:45) Swelling Tobacco use date assessed: 09/14/22 HPI f/u diabetes HPI Details Pt presents to f/u diabetes. Had been in good control with metformin, glipizide and Trulicity but more recently had not been able to obtain this as insurance says she was not meeting her deductible and lewis of medication had gone far beyond her ability to afford it. Last A1c 7.3% 05/16/23 which had worsened from 7.0%. Pt has complaints of ongoing dry scalp. Blood pressure today 116/74. She is on hydrochlorothiazide 12.5mg daily. [facility] Medical History Diabetes Liver problem HTN (hypertension) Surgical History History of total abdominal hysterectomy Family History Father CVD (cardiovascular disease) Mother No problems noted. Social History Housing: Apartment Alcohol intake: never Patient Tobacco Use Status: Never used Tobacco e-Cigarette/Vaping Use: Never Used Second Hand Smoke Exposure: No service: No Current occupational status: retired Current occupational exposures/hazards: No Cognitive needs: No Hearing needs: Yes (hearing aide) Vision needs: Yes (glasses) Questionnaire Thrive Questionnaire Date Thrive assessed: 09/14/22 LESLEE-7 AMB Questionnaire LESLEE-7 Date LESLEE - 7 assessed: 09/14/22 Source: Developed by Drs. Bill Whittaker, Isamar Sutherland, Scott Lopez and colleagues, with an educational ray from [employer]. Physical exam (Primary Care) Vital Signs: Last Vital Signs Pulse 78 06/29/23 16:12 BP 116/74 06/29/23 16:12 Pulse Ox 100 06/29/23 16:12 Oxygen Delivery Method Room Air 06/29/23 16:12 BMI result Body Mass Index 34.5 Tobacco/Smoking Status: Tobacco use Status Tobacco use date assessed 09/14/22 06/29/23 16:16 Patient Tobacco Use Status Never used Tobacco 06/29/23 16:16 e-Cigarette/Vaping Use Never Used 06/29/23 16:16 Thrive Assessment: Date of Thrive Assessment Date Thrive assessed 09/14/22 06/29/23 16:16 Assessment and Plan Assessment & Plan (1) Diabetes type 2, controlled: Onset Date: Unknown Code(s): E11.9 - Type 2 diabetes mellitus without complications Qualifiers: Diabetes mellitus complication detail: with other neurological complication Diabetes mellitus complication status: with neurologic complications Diabetes mellitus terminal clerk insulin use: without skilled nursing use Qualified Code(s): E11.49 - Type 2 diabetes mellitus with other diabetic neurological complication Plan: A1c?7.0%.??Fairly?good?control.??Goal?is?less?than?7.0% However,?patient?has?wanted?to?discontinue?metformin?and?use?Trulicity. Her?insurance?says?that?they?have?approved?her?prior?authorization?but?she?still ?has?an?extremely?high deductible?before?they?will?cover?the?cost.??Almost?300?dollars. Will?try?oral?semaglutide (RYbesus). If?unable?to?get?this?will?use?Januvia (2) Hypertension: Code(s): I10 - Essential (primary) hypertension Plan: Blood?pressure?is?well?controlled.??Goal?is?less?than?140/90 Continue?current?medication?regimen Gave?patient?a?blood?pressure?monitor?for?checking?her?pressures?at?home (3) Dry scalp: Code(s): R23.8 - Other skin changes Plan: Ketoconazole?hel ped?but?then?began?to?dry?out?her?scalp.??She?can?use?this?less?frequently. Every?2?weeks Medications: New semaglutide (Rybelsus) 3 mg PO DAILY 30 days 30 tabs 2RF blood pressure monitor Automatic, Digital. Dx: I10. Daily As directed, 999 days/lifetime 1 ea 0RF I10 - Essential (primary) hypertension Changed From ketoconazole 2% 1 appl topical 3XW 14 days 120 mL 0RF To ketoconazole 2% 1 appl topical .every 2 weeks 28 days 120 mL 0RF Refilled blood sugar diagnostic ([employer] Verio test strips) As directed 200 ea 4RF DX: E11.9, test blood sugar twice a day, 90 day E11.69 - Type 2 diabetes mellitus with other specified complication, E66.9 - Obesity, unspecified lancets ([employer] Delica Plus Lancet) 2 times a day As directed, 90 days 200 ea 3RF E11.9 - Type 2 diabetes mellitus without complications blood-glucose meter ([employer] Verio Flex Meter) As directed, 999 days 1 ea 0RF E11.9 - Type 2 diabetes mellitus without complications Discontinued dulaglutide Discontinued Reason: Doctor's Order 1.5 mg (0.5 mL) subcut QWEEK 28 days 2 mL 4RF Coding Level of Care Code Est Pt Level 4 (71195) Diagnoses Controlled type 2 diabetes mellitus with other neurologic complication, without long-term current use of insulin E11.49 Diabetes mellitus complication detail: with other neurological complication Diabetes mellitus complication status: with neurologic complications Diabetes mellitus terminal clerk insulin use: without terminal clerk use Hypertension I10 Dry scalp R23.8
== END 2023-06-29 16:55 | disposition home or self-care (01) ==
PROVIDERS: PCP Family Medicine; Visit Provider Family Medicine
DX: E11.49 Type 2 diabetes mellitus with other diabetic neurological complication (principal); I10 Essential (primary) hypertension; R23.8 Other skin changes
CPT/HCPCS: 99214

== ENCOUNTER 2023-08-17 08:44 | Outpatient (AMB) | payer MEDICARE, SELFPAY ==
--- NOTE | 2023-08-17 09:27 | MHC.PC.OV ---
Vital Signs 08/17/23 09:28 08/17/23 10:02 Height 5 ft 3 in Weight 198 lb 6 oz BMI 35.1 BP 144/78 H 126/60 Blood Pressure Location Rt brachial Rt brachial Position Sitting Sitting Respiration 13 Pulse 94 Pulse Source Pulse Oximeter Temp 97.4 F Temp Source Temporal Artery Scan Pulse Oximetry (%) 99 Oxygen Delivery Method Room Air Intake Visit Reasons: Runny nose, Sore throat, Headache Intake Note: Patient wants to make sure it isn't RSV due to her having new twin grandaughters. Human Resources Assistant Manager Required: No Accompanied by: Self / Same As Patient Allergies latex Allergy (Verified 08/17/23 09:44) Swelling Medication List - Last Reconciled 08/17/23 by Martha Dos Santos CNP alendronate 70 mg PO QWEEK 90 days atorvastatin 80 mg PO BEDTIME 90 days blood pressure monitor Automatic, Digital. Dx: I10. Daily As directed, 999 days/lifetime blood sugar diagnostic ([employer] Verio test strips) As directed blood-glucose meter ([employer] Verio Flex Meter) As directed, 999 days cetirizine 10 mg PO DAILY PRN 30 days citalopram 10 mg PO DAILY enalapril maleate 20 mg PO BID 90 days ezetimibe 10 mg PO DAILY fenofibrate 160 mg PO DAILY 30 days fluticasone propionate 50 mcg/actuation (Flonase Allergy Relief) 1 spray intranasal Q12H 30 days glipizide 10 mg PO BID hydrochlorothiazide 12.5 mg PO DAILY 90 days ketoconazole 2% 1 appl topical .every 2 weeks 28 days lancets ([employer] Delica Plus Lancet) 2 times a day As directed, 90 days loperamide (Imodium A-D) 2 mg PO Q6H PRN 14 days metformin 850 mg PO BID pantoprazole 20 mg PO DAILY semaglutide (Rybelsus) 3 mg PO DAILY 30 days sulfamethoxazole-trimethoprim 800-160 mg (Bactrim DS) 1 tab PO Q12H 5 days trazodone 25 mg (1/2 x 50 mg) PO BEDTIME PRN 30 days Tobacco use date assessed: 08/17/23 Fall risk assessment: No Falls in past year Last assessed Fall Risk: 08/17/23 Dental Screening Dental Screen Date: 08/17/23 Did you have a dental visit in the last 12 months?: Yes Did you have a dental problem in the last 6 months where you did not have access to dental care?: No Was dental information given to patient?: Patient has dentist HPI HPI Comments History of Present Illness Details 73-year-old female presents with complaints of headache, runny nose, intermittent non productive cough, and sore/itchy throat. Her symptoms have been ongoing for the past one and half week and have progressively worsened. She reports a little chill, no fever, body aches, fatigue, or weakness. No known sick contact. She has been taking tylenol which has been providing some relief. She notes that she is up-to-date on her COVID-19 and influenza vaccines. [facility] Medical History Diabetes Liver problem HTN (hypertension) Surgical History History of total abdominal hysterectomy Family History Father CVD (cardiovascular disease) Mother No problems noted. Social History Housing: Apartment Alcohol intake: never Patient Tobacco Use Status: Never used Tobacco e-Cigarette/Vaping Use: Never Used Second Hand Smoke Exposure: No service: No Current occupational status: retired Current occupational exposures/hazards: No Cognitive needs: No Hearing needs: Yes (hearing aide) Vision needs: No (glasses) Questionnaire Thrive Questionnaire Date Thrive assessed: 09/14/22 LESLEE-7 AMB Questionnaire LESLEE-7 Date LESLEE - 7 assessed: 09/14/22 Source: Developed by Drs. Bill Whittaker, Isamar Sutherland, Scott Lopez and colleagues, with an educational ray from [employer]. Review of Systems Const Details: Const Denies chills, Denies fatigue, Denies fever(s), Denies headache(s) and Denies weakness ENT Reports as per HPI Card Denies chest pain, Denies lightheadedness, Denies dyspnea and Denies other (Palpitations) Resp Denies cough, Denies dyspnea, Denies wheezing and Denies other ( shortness of breath) GI Denies abdominal pain, Denies melena, Denies hematochezia, Denies change in bowel habits, Denies dyspepsia and Denies nausea Denies hematuria and Denies dysuria Musc Denies abnormal gait, Denies myalgias, Denies arthralgias, Denies numbness and Denies tingling Skin/Breast Denies rash, Denies unusual bruising and Denies wounds Neuro Denies abnormal gait, Denies dizziness, Denies headache(s), Denies memory loss, Denies numbness, Denies Sensory deficit (Neuro), Denies tingling and Denies weakness Psych Denies anxiety, Denies depression, Denies memory loss Endo Denies cold intolerance, Denies fatigue, Denies heat intolerance, Denies polydipsia and Denies polyuria Aller/Immun Denies wheezing Physical exam (Primary Care) Vital Signs: Last Vital Signs Temp 97.4 F 08/17/23 09:28 Pulse 94 08/17/23 09:28 Resp 13 08/17/23 09:28 BP 144/78 H 08/17/23 09:28 Pulse Ox 99 08/17/23 09:28 Oxygen Delivery Method Room Air 08/17/23 09:28 BMI result Body Mass Index 35.1 Tobacco/Smoking Status: Tobacco use Status Tobacco use date assessed 08/17/23 08/17/23 09:36 Patient Tobacco Use Status Never used Tobacco 08/17/23 09:36 e-Cigarette/Vaping Use Never Used 08/17/23 09:36 Thrive Assessment: Date of Thrive Assessment Date Thrive assessed 09/14/22 08/17/23 09:36 Const Other: General: no acute distress and well developed Nutritional Appearance: well nourished Orientation/consciousness: patient oriented x3 HENMT Head is normocephalic Bilateral ear canal and TM are normal Nasal turbinates and oropharynx are pink and moist Sinuses are nontender with palpation No auricular or cervical lymphadenopathy Eyes General: appearance normal, both eyes and all related structures Pupils: Equal, round and reactive pupils present EOM: EOMs intact bilaterally Resp Effort & Inspection: normal respiratory effort Auscultation: clear to auscultation bilaterally Cardio Rate: regular rate Rhythm: regular rhythm Heart sounds: S1 normal heart sound present, S2 normal heart sound present, no gallops, no murmurs and no rubs GI Palpation (GI): No Abdominal aortic bruit present, Soft to palpation, nontender, No hepatosplenomegaly present and No Rebound tenderness present Auscultation: normal bowel sounds General: Yes no CVA tenderness Back/Spine/Pelvis Back: no CVA tenderness Cervical Spine: cervical ROM normal and No Cervical spine tenderness Thoracic/Lumbar Spine: thoraco-lumbar ROM normal, No pain with thoraco-lumbar ROM, No thoracic spinal tenderness and No lumbar spinal tenderness Extrem General: Yes normal to inspection, No edema and No calf tenderness Skin General: warm and dry. Normal skin color. Normal skin turgor Neuro General: patient oriented x3, gait normal and no focal neuro deficit Cranial nerves: Yes Equal, round and reactive pupils present Cognition (Neuro): normal cognition Gait exam (Neuro): Normal gait present Sensory Exam: No Sensory deficit (Neuro) Psych Appearance: grossly normal Affect: normal affect Attitude: cooperative Thought process: Normal thought process present Assessment and Plan Assessment & Plan (1) Viral upper respiratory illness: Code(s): J06.9 - Acute upper respiratory infection, unspecified Plan: Likely viral illness though possibly allergies. No exam evidence of bacterial infection Viral illness There is no antibiotic medication for viruses.? They must run their course.? Most average 5-7 days but 7-10 days is not uncommon and up to 14 days is still possible.? A cough is often the last symptom to resolve and this can last for weeks in some cases. Rest Hydrate well -? Drink plenty of fluids.? Especially water. Tylenol or ibuprofen for muscle aches, headache, fever/discomfort Cetirizine as prescribed Cannot rule out COVID-19/RSV/Flu infection Nasal swab acquired and will be sent to the lab Return for new or worsening symptoms Verbalized understanding and agreed with treatment plan. Orders: Orders SARS-CoV2/FLU/RSV Today J06.9 - Acute upper respiratory infection, unspecified Coding Level of Care Code Est Pt Level 2 (73351) Diagnoses Viral upper respiratory illness J06.9
[2023-08-17 09:28] VITALS: BP 144/78; PULSE 94; RESP 13; TEMP 36.3; O2SAT 99; BMI 35.1
[2023-08-17 10:02] VITALS: BP 126/60
== END 2023-08-17 10:13 | disposition home or self-care (01) ==
PROVIDERS: PCP Family Medicine; Visit Provider Nurse Practitioner Family
DX: J06.9 Acute upper respiratory infection, unspecified (principal)
CPT/HCPCS: 99212

== ENCOUNTER 2023-08-17 10:00 | Outpatient (REF) | payer MEDICARE, SELFPAY ==
[2023-08-17 12:54] LABS: Influenza A PCR NEGATIVE (Negative); Influenza B PCR NEGATIVE (Negative); Resp Syncy Virus RNA Qual PCR NEGATIVE (Negative); SARS COV2 PCR INHOUSE NEGATIVE (Negative)
== END 2023-08-17 10:01 | disposition home or self-care (01) ==
LOC: HO.LAB 10:00
PROVIDERS: Visit Provider Nurse Practitioner Family
DX: J06.9 Acute upper respiratory infection, unspecified (principal); Z11.52 Encounter for screening for COVID-19
CPT/HCPCS: 0241U

== ENCOUNTER 2023-08-17 11:45 | Outpatient (REF) | payer MEDICARE, SELFPAY ==
[2023-08-17 12:20] LABS: Appearance Urine Clear; Color Urine Yellow; Glucose Urine UA Negative (Negative); Leukocyte Esterase Urine Small (1+) (Negative); Nitrite Urine Negative (Negative); PH 5.5 (5.0-9.0); Specific Gravity - Urine 1.015 (1.005-1.025); UMIC TRIGGER UA YES; Urine Blood Negative (Negative); Urine Ketones Negative (Negative); Urine Protein Trace mg/dL (Neg-Trace)
[2023-08-17 14:27] LABS: Bacteria Urine 4+ (None Seen); Hyaline Casts Urine 0-2 /LPF (0-2); RBC Urine 0-2 /HPF (0-2); Squamous Epithelial Cell Urine 0-2 /HPF (0-2)
== END 2023-08-17 11:46 | disposition home or self-care (01) ==
LOC: HO.WFDLDS 11:45
PROVIDERS: Visit Provider Family Medicine
DX: Z00.00 Encounter for general adult medical examination without abnormal findings (principal)
CPT/HCPCS: 81001

== ENCOUNTER 2023-10-15 14:52 | Outpatient (AMB) | payer MEDICARE, SELFPAY ==
[2023-10-15 15:11] VITALS: BP 148/66; PULSE 78; RESP 13; TEMP 36.6; O2SAT 96; BMI 35.2
--- NOTE | 2023-10-15 15:11 | MHC.PC.OV ---
Vital Signs 10/15/23 15:11 Height 5 ft 3 in Weight 199 lb BMI 35.2 BP 148/66 H Blood Pressure Location Lt brachial Position Sitting Respiration 13 Pulse 78 Pulse Source Pulse Oximeter Temp 97.9 F Temp Source Temporal Artery Scan Pulse Oximetry (%) 96 Oxygen Delivery Method Room Air Intake Visit Reasons: f/u diabetes Intake Note: Patient reports she has a pain in her left ear, pain increases when patient lays her head on her pillow. Patient reports she was given an RX for a BP cuff and has not heard anything about obtaining it. Patient reports she changed her medical plan recently, so she will need a new PA for Trulicity. Sausage Wrapper Required: No Accompanied by: Self / Same As Patient Allergies latex Allergy (Verified 10/15/23 15:22) Swelling Tobacco use date assessed: 10/15/23 Fall risk assessment: No Falls in past year Last assessed Fall Risk: 10/15/23 Dental Screening Dental Screen Date: 10/15/23 Did you have a dental visit in the last 12 months?: Yes Did you have a dental problem in the last 6 months where you did not have access to dental care?: No Was dental information given to patient?: Patient has dentist HPI f/u diabetes HPI Details 73 y/o female presents to f/u diabetes. A1c today 10/15/23 is 9.4%. She is on metformin 850mg, glipizide. Had been unable to get her Trulicity. Blood pressure today 148/66, 78p. Pt reports ear pain. [facility] Medical History Diabetes Liver problem HTN (hypertension) Surgical History History of total abdominal hysterectomy Family History Father CVD (cardiovascular disease) Mother No problems noted. Social History (Updated 10/15/23 @ 15:25 by Kaitlin Caldwell CMA) Household Members: None Household Members Other:: Patient has a Dog, 4 years ago. Both parents involved: No Caregiver staying overnight: No Housing: Apartment Are you a primary career education teacher to a significant other at home: No Do you presently have visiting nurse or other home services: No 75 years or older and lives alone: No Alcohol intake: never Patient Tobacco Use Status: Never used Tobacco e-Cigarette/Vaping Use: Never Used Second Hand Smoke Exposure: No Use of substances other than those prescribed or required for medical reasons: No Have you been hit, kicked, punched, or otherwise hurt by someone within the past year? If so, by whom?: No Do you feel safe in your current relationship?: No Current Relationship Is there a partner from a previous relationship who is making you feel unsafe now?: No Are you made to feel afraid or neglected: No service: No Current occupational status: retired Current occupational exposures/hazards: No Cognitive needs: No Hearing needs: Yes (hearing aide) Vision needs: No (glasses) Questionnaire Thrive Questionnaire Date Thrive assessed: 09/14/22 LESLEE-7 AMB Questionnaire LESLEE-7 Date LESLEE - 7 assessed: 09/14/22 Source: Developed by Drs. Bill Whittaker, Isamar Sutherland, Scott Lopez and colleagues, with an educational ray from [employer]. Review of Systems Const Denies chills, Denies fatigue, Denies fever(s), Denies headache(s) and Denies weakness ENT Denies dizziness and Denies headache(s) Card Denies dyspnea Resp Denies cough, Denies dyspnea, Denies wheezing and Denies other (shortness of breath) Musc Denies numbness and Denies tingling Neuro Denies dizziness, Denies headache(s), Denies numbness, Denies tingling and Denies weakness Psych Denies anxiety and Denies depression Endo Denies fatigue Aller/Immun Denies wheezing Physical exam (Primary Care) Vital Signs: Last Vital Signs Temp 97.9 F 10/15/23 15:11 Pulse 78 10/15/23 15:11 Resp 13 10/15/23 15:11 BP 148/66 H 10/15/23 15:11 Pulse Ox 96 10/15/23 15:11 Oxygen Delivery Method Room Air 10/15/23 15:11 BMI result Body Mass Index 35.2 Tobacco/Smoking Status: Tobacco use Status Tobacco use date assessed 10/15/23 10/15/23 15:22 Patient Tobacco Use Status Never used Tobacco 10/15/23 15:25 e-Cigarette/Vaping Use Never Used 10/15/23 15:25 Thrive Assessment: Date of Thrive Assessment Date Thrive assessed 09/14/22 10/15/23 15:20 Const General: well developed; No acute distress Nutritional Appearance: well nourished Orientation/consciousness: patient oriented x3 HENNM Head: Yes normocephalic and Yes atraumatic Eyes General: appearance normal, both eyes and all related structures Pupils: Equal, round and reactive pupils present EOM: EOMs intact bilaterally Resp Effort & Inspection: normal respiratory effort Neuro General: patient oriented x3 and gait normal Cranial nerves: Yes Equal, round and reactive pupils present Psych Affect: normal affect Results AMB Hemoglobin A1c AMB Hemoglobin A1c 9.4 % Last Edit by Kaitlin Caldwell CMA on 10/15/23 15:32 Results Reviewed Results Reviewed: Laboratory Last Values Hgb A1c (Clinic) 9.4 % (4.0-6.0) H 10/15/23 15:28 Assessment and Plan Assessment & Plan (1) Diabetes: Code(s): E11.9 - Type 2 diabetes mellitus without complications Plan: Worsening?and?uncontrolled?diabetes Continue?metformin?and?glipizide?as?prescribed Start?Jardiance Follow-up?in?2?months Will?ask?nurse?navigator?to?arrange?for?[place]?system (2) Essential hypertension: Code(s): I10 - Essential (primary) hypertension Plan: Blood?pressure?is?high?but?was?okay?at?last?visit. She?notes?that?she?had?difficulty?with?traffic?today. Continue?current?medication?regimen?and?we?will?follow-up?at?her?next?visit (3) Ear pain: Code(s): H92.09 - Otalgia, unspecified ear Plan: Left?outer?ear?pain?and?she?has?a?small?pimple/abscess Has?already?come?to?a?head?and?will?likely?drain?spontaneously.??Advised?warm?compresses If?worsening?or?not?improving,?she?can?let?me?know?and?I?will?send?script?for?an?antibiotic. (4) Imbalance: Code(s): R26.89 - Other abnormalities of gait and mobility Plan: Imbalance?and?falls?and?left?lower?extremity?weakness Also?some?neuropathy?in?her?feet. Referred?to?physical?therapy?for?balance?training (5) Lower extremity weakness: Code(s): R29.898 - Other symptoms and signs involving the musculoskeletal system Plan: As?above Referred?to?physical?therapy?for?strength?training Orders: Orders AMB Hemoglobin A1c Today E11.9 - Type 2 diabetes mellitus without complications PT Evaluation and Treatment Today R26.89 - Other abnormalities of gait and mobility, R29.898 - Other symptoms and signs involving the musculoskeletal system Medications: New empagliflozin (Jardiance) 25 mg PO QAM 30 tabs 2RF 30 days Refilled blood pressure monitor Automatic, Digital. Dx: I10. Daily As directed, 999 days/lifetime 1 ea 0RF I10 - Essential (primary) hypertension Discontinued semaglutide (Rybelsus) Discontinued Reason: Doctor's Order 3 mg PO DAILY 30 days 30 tabs 2RF Coding Level of Care Code Est Pt Level 4 (23362) Diagnoses Diabetes E11.9 Essential hypertension I10 Ear pain H92.09 Imbalance R26.89 Lower extremity weakness R29.898
== END 2023-10-15 16:04 | disposition home or self-care (01) ==
PROVIDERS: PCP Family Medicine; Visit Provider Family Medicine
DX: E11.9 Type 2 diabetes mellitus without complications (principal); I10 Essential (primary) hypertension; H92.09 Otalgia, unspecified ear; R26.89 Other abnormalities of gait and mobility; R29.898 Other symptoms and signs involving the musculoskeletal system
CPT/HCPCS: 83036; 99214

== ENCOUNTER 2023-10-23 13:55 | Outpatient (REF) | payer OTHER, SELFPAY | END 2023-10-23 13:56 | disposition home or self-care (01) | LOC: HO.MAMMO 13:55 | PROVIDERS: PCP Family Medicine; Visit Provider Family Medicine | DX: Z12.31 Encounter for screening mammogram for malignant neoplasm of breast (principal) | CPT/HCPCS: 77063; 77067 ==

== ENCOUNTER → 2023-10-23 14:30 | Outpatient (BNV) | payer OTHER, SELFPAY | PROVIDERS: PCP Family Medicine; Visit Provider Radiology Diagnostic Radiology | DX: Z12.31 Encounter for screening mammogram for malignant neoplasm of breast (principal) | CPT/HCPCS: 77063; 77067 ==

== ENCOUNTER 2024-08-08 15:44 | Outpatient (AMB) | payer OTHER, SELFPAY ==
--- NOTE | 2024-08-08 15:54 | MHC.PC.OV ---
Vital Signs 08/08/24 16:00 08/08/24 16:09 Height 5 ft 3 in Weight 190 lb 2 oz BMI 33.7 BP 146/86 H 136/72 Blood Pressure Location Rt brachial Rt brachial Position Sitting Sitting Pulse 84 Pulse Source Pulse Oximeter Pulse Oximetry (%) 95 Oxygen Delivery Method Room Air Intake Visit Reasons: DM follow up Intake Note: Diabetes follow up Chain Sales Representative Required: No Allergies latex Allergy (Verified 08/08/24 15:55) Swelling Tobacco use date assessed: 08/08/24 Fall risk assessment: 1 Fall in past year Last assessed Fall Risk: 08/08/24 Dental Screening Dental Screen Date: 10/15/23 HPI DM follow up HPI Details 74 y/o female presents to f/u diabetes. Had started her on Jardiance last office visit in September. A1c today 08/08/24 9.1%. Prior A1c 9.4%. She notes she has only been using metformin and glipizide. Reports L ear discomfort. [facility] Medical History (Updated 08/08/24 @ 16:40 by Jarrell Beltran) Diabetes Liver problem HTN (hypertension) Surgical History History of total abdominal hysterectomy Family History Father CVD (cardiovascular disease) Mother No problems noted. Social History (Updated 08/08/24 @ 15:59 by Wendy Miranda CMA) Household Members: None Household Members Other:: Patient has a Dog, 4 years ago. Both parents involved: No Caregiver staying overnight: No Housing: Apartment Are you a primary acute care physical therapist to a significant other at home: No Do you presently have visiting nurse or other home services: No 75 years or older and lives alone: No Alcohol intake: never Patient Tobacco Use Status: Never used Tobacco e-Cigarette/Vaping Use: Never Used Second Hand Smoke Exposure: No service: No Current occupational status: retired Current occupational exposures/hazards: No Cognitive needs: No Hearing needs: Yes (hearing aide) Vision needs: No (glasses) Questionnaire PHQ-9 Over the last 2 weeks, how often have you been bothered by any of the following problems? 1. Little interest or pleasure in doing things: several days 2. Feeling down, depressed, or hopeless: more than half the days 3. Trouble falling or staying asleep, or sleeping too much: several days 4. Feeling tired or having little energy: several days 5. Poor appetite or overeating: several days 6. Feeling bad about yourself - or that you are a failure or have let yourself or your family down: not at all 7. Trouble concentrating on things, such as reading the newspaper or watching television: not at all 8. Moving or speaking so slowly that other people could have noticed. Or the opposite - being so fidgety or restless that you have been moving around a lot more than usual: not at all 9. Thoughts that you would be better off or of hurting yourself in some way: not at all Total score: 6 Source: Developed by Drs. Bill Whittaker, Isamar Sutherland, Scott Lopez and colleagues, with an educational ray from [employer]. Thrive Questionnaire Date Thrive assessed: 09/14/22 I am a: Patient What is your living situation today?: I have a steady place to live Within the past 12 months, did the food you bought not last and you didn't have the money to get more?: Never true Within the past 12 months, did you worry whether your food would run out before you got money to buy more?: Never true Do you have trouble paying for medicines?: Yes Do you have trouble getting transportation to medical appointments?: No Do you have trouble paying your heating and electricity bill?: No Do you have trouble taking care of your child, family member or friend?: No Do you have trouble with day-to-day activities such as bathing, preparing meals, shopping, managing finances, etc.?: No Are you currently unemployed and looking for a job?: No Are you interested in more education?: No Please select the resources that you would like help with: None Currently or been in a relationship where the following occur: No concerns reported THRIVE Score: 0 AUDIT C Alcohol Use Questionnaire (AUDIT-C) 1. How often do you have a drink containing alcohol?: Never Total Score: 0 LESLEE-7 AMB Questionnaire LESLEE-7 Date LESLEE - 7 assessed: 09/14/22 Feeling nervous, anxious, or on edge: 0 = Not at all Not being able to stop or control worryin = Not at all Worrying too much about different things: 1 = Several days Trouble relaxin = Not at all Being so restless that it is hard to sit still: 0 = Not at all Becoming easily annoyed or irritable: 0 = Not at all Feeling afraid as if something awful might happen: 0 = Not at all Total LESLEE-7 score (0-4 normal; 5-9 mild; 10-14 moderate; 15-21 severe): 1 Source: Developed by Drs. Bill Whittaker, Isamar Sutherland, Scott Lopez and colleagues, with an educational ray from [employer]. Review of Systems Const Denies chills, Denies fatigue, Denies fever(s), Denies headache(s) and Denies weakness ENT Denies dizziness and Denies headache(s) Card Denies dyspnea Resp Denies cough, Denies dyspnea, Denies wheezing and Denies other (shortness of breath) Musc Denies numbness and Denies tingling Neuro Denies dizziness, Denies headache(s), Denies numbness, Denies tingling and Denies weakness Psych Denies anxiety and Denies depression Endo Denies fatigue Aller/Immun Denies wheezing Physical exam (Primary Care) Vital Signs: Last Vital Signs Pulse 84 08/08/24 16:00 BP 136/72 08/08/24 16:09 Pulse Ox 95 08/08/24 16:00 Oxygen Delivery Method Room Air 08/08/24 16:00 BMI result Body Mass Index 33.7 Tobacco/Smoking Status: Tobacco use Status Tobacco use date assessed 08/08/24 08/08/24 15:56 Patient Tobacco Use Status Never used Tobacco 08/08/24 15:59 e-Cigarette/Vaping Use Never Used 08/08/24 15:59 PHQ-9: PHQ-9 Score PHQ-9: Total score 6 08/08/24 16:27 Thrive Assessment: Date of Thrive Assessment Date Thrive assessed 09/14/22 08/08/24 15:56 Currently or been in a relationship where the following occur: No concerns reported Const General: well developed; No acute distress Nutritional Appearance: well nourished Orientation/consciousness: patient oriented x3 HENMT Head: Yes normocephalic and Yes atraumatic Eyes General: appearance normal, both eyes and all related structures Pupils: Equal, round and reactive pupils present EOM: EOMs intact bilaterally Resp Effort & Inspection: normal respiratory effort Auscultation: clear to auscultation bilaterally Cardio Rate: regular rate Rhythm: regular rhythm Heart sounds: S1 normal heart sound present, S2 normal heart sound present, no gallops, no murmurs and no rubs Neuro General: patient oriented x3 and gait normal Cranial nerves: Yes Equal, round and reactive pupils present Psych Affect: normal affect Results AMB Hemoglobin A1c AMB Hemoglobin A1c 9.1 % Last Edit by Wendy Miranda CMA on 08/08/24 16:24 Results Reviewed Results Reviewed: Laboratory Last Values Hgb A1c (Clinic) 9.1 % (4.0-6.0) H 08/08/24 16:23 Coding Level of Care Code Est Pt Level 4 (80459) Diagnoses Diabetes E11.9 Lump of skin R22.9 Breast cancer screening by mammogram Z12.31 Discomfort of left ear H92.02 Assessment & Plan Assessment & Plan (1) Diabetes: Code(s): E11.9 - Type 2 diabetes mellitus without complications Category: Medical Plan: Patient?was?again?lost?to?follow-up?since?September. Her?A1c?was?9.4%?ordered?Jardiance?added?to?diabetes?medication?regimen. A1c?today?is?9.1%. Still?much?too?high?and?her?goal?is?less?than?7.0% Patient?never?picked?up?Jardiance. Recent?in?Jardiance?and?I?have?asked?her?to?pick?this?up?and?take?along?with?her?glipizide?and?metformin. Encouraged?her?to?please?call?if?she?is?unable?to?get?this. Advised?her?that?we?need?to?have?closer?follow-up - would?like?to?get?her?back?in?2?months?to?ensure?she?medications?is?taking?them. (2) Lump of skin: Code(s): R22.9 - Localized swelling, mass and lump, unspecified Category: Medical Plan: 1?x?1/2?cm mobile?and?firm/mildly?fluctuant?lump. Lipoma?verses?reactive?lymph?node?is?likely. Given?location?may?be?epitrochlear?lymph?node. Check?ultrasound We?can?follow-up?on?this?at?her?next?visit.??Will?call?patient?sooner?action?required (3) Breast cancer screening by mammogram: Code(s): Z12.31 - Encounter for screening mammogram for malignant neoplasm of breast Category: Medical Plan: Mammogram?in?September?was?negative?for?malignancy. I?have?ordered?her?next?mammogram?for?September (4) Discomfort of left ear: Code(s): H92.02 - Otalgia, left ear Category: Medical Plan: Patient?has?allergies?and?nasal?congestion?and?appears?to?have?a serous?otitis She?is?not?taking?medications?currently?but?has?cetirizine?and?Flonase?on?her?med?list.??Will?recent?these.??Encouraged?her?to?take?these She?can?also?use?some?nasal?saline?but?not?within?30?minutes?of?the?nasal?steroid Patient?is?also?wearing?perfume?and?I?encouraged?her?to?hold?off?on?this?to?see?if?symptoms?improve Orders: Orders AMB Hemoglobin A1c Today E11.9 - Type 2 diabetes mellitus without complications MM tomosynthesis screening BI Today Z12.31 - Encounter for screening mammogram for malignant neoplasm of breast Medications: Changed From glipizide 10 mg PO BID 60 tabs 0RF To glipizide 10 mg PO BID 90 days 180 tabs 2RF Refilled fluticasone propionate 50 mcg/actuation (Flonase Allergy Relief) administer into each nostril 1 spray intranasal Q12H 30 days 16 grams 1RF cetirizine 10 mg PO DAILY 30 days PRN 30 tabs 2RF allergy symptoms empagliflozin (Jardiance) 25 mg PO QAM 30 days 30 tabs 2RF metformin 850 mg PO BID 180 tabs 3RF
[2024-08-08 16:00] VITALS: BP 146/86; PULSE 84; O2SAT 95; BMI 33.7
[2024-08-08 16:09] VITALS: BP 136/72
== END 2024-08-08 16:50 | disposition home or self-care (01) ==
PROVIDERS: PCP Family Medicine; Visit Provider Family Medicine
DX: E11.9 Type 2 diabetes mellitus without complications (principal); R22.9 Localized swelling, mass and lump, unspecified; Z12.31 Encounter for screening mammogram for malignant neoplasm of breast; H92.02 Otalgia, left ear

== ENCOUNTER → 2024-08-08 15:44 | Outpatient (BNVA) | payer OTHER, SELFPAY | PROVIDERS: PCP Family Medicine; Visit Provider Family Medicine | DX: E11.9 Type 2 diabetes mellitus without complications (principal); R22.9 Localized swelling, mass and lump, unspecified; H92.02 Otalgia, left ear | CPT/HCPCS: 83036; 96127 ==

== ENCOUNTER 2024-10-09 14:16 | Outpatient (AMB) | payer OTHER, SELFPAY ==
--- OUTSIDE RECORDS SUMMARY | 2024-10-09 14:19 | XMS_ITS | Clinical Summary ---
Author Organization [facility] ity Address [address] [place] [address] Care Team Providers Care Diploma Maker Name Role Phone Unavailable Primary Care Provider Unavailabl e Social History Tobacco Use Types Packs/Day Years Used Date Smoking Tobacco: Never Assessed Comments Unknown Sex and Gender Information Value Date Recorded Sex Assigned at Not on file Legal Sex Female 4:50 AM EST Gender Identity Not on file Sexual Orientation Not on file Plan of Treatment Health Maintenance Due Date Last Done Comments Breast Cancer Screening 1950 DTaP,Tdap,and Td Vaccines (1 - Tdap) 1971 Zoster Vaccines (1 of 2) 2002 Pneumococcal Vaccine: 50+ Ye ars (1 of 1 - PCV) 2017 COVID-19 Vaccine ( - 2023-2 5 season) 2024 Influenza Vaccine (#1) 2024 RSV Immunization Patients 60 + Years Old (1 - 1-dose 75+ series) 2027 HIB Vaccines Aged Out No longer eligi ble based on patient's age to complete this topic HPV Vaccines Aged Out No longer eligi ble based on patient's age to complete this topic Hepatitis A Vaccines Aged Out No long er eligible based on patient's age to complete this topic Hepatitis B Vaccines Aged Out No long er eligible based on patient's age to complete this topic IPV Vaccines Aged Out No longer eligi ble based on patient's age to complete this topic MMR Vaccines Aged Out No longer eligi ble based on patient's age to complete this topic Meningococcal ACWY Vaccine Aged Out N o longer eligible based on patient's age to complete this topic RSV Immunization Patients Un matthew 20 months Aged Out No longer eligible b ased on patient's age to complete this topic Varicella Vaccines Aged Out No longer eligible based on patient's age to complete this topic
--- OUTSIDE RECORDS SUMMARY | 2024-10-09 14:19 | XMS_ITS ---
Author Organization [facility] car[facility] [place] Address [address] [place] [address] Care Team Providers Care Round Boner Name Role Phone Sherwin Champion MD Primary Care Provider Alphonso Ricther Unavailable [phone] Allergies Allergen (clinical drug ingredient) Drug/Non Drug Allergy documented on EMR Reaction Allergy Type Onset Date Status Latex Latex swelling, itching Allergy Active REASON FOR VISIT At Risk Footcare, Painful Nail(s) aggravated by shoes and causing difficulty standing/walking, SkinProblem Medications Medication SIG (Take, Route, Frequency, Duration) Notes Start Date End Date Status Pantoprazole Sodium 20 MG 1 tablet Orall y Once a day Active metFORMIN HCl 850 MG 1 tablet with a grant l Orally Once a day Active Ciclopirox Olamine 0.77 % 1 application Externally Twice a day to skin of feet including between the toes for 30 days Active Simvastatin 40 MG 1 tablet in the evening Orally Once a day Active Alendronate Sodium 70 MG 1 tablet 30 min utes before the first food, beverage or medicine of the day with plain water Orally for 30 day(s) 05/03/2023 Active hydroCHLOROthiazide 12.5 MG 1 capsule in the morning Orally Once a day Active Fluticasone Propionate 50 MCG/ACT 1 spray in each nostril Nasally Once a day Active glipiZIDE 10 MG 1 tablet 30 minutes before breakfast Orally Once a day Active Dorzolamide HCl-Timolol Mal 22.3-6.8 MG/ML 1 drop into affected eye Ophthalmic Twice a day 05/03/2023 Active Enalapril Maleate 20 MG 1 tablet Orally Once a day Active Atorvastatin Calcium 40 MG 1 tablet Oral ly Once a day for 30 day(s) 05/03/2023 Active Citalopram Hydrobromide 10 MG 1 tablet O rally Once a day for 30 day(s) 05/03/2023 Active Social History Tobacco Use: Social History Observation Description Date Details (start date - stop date) Never Smoker NA - NA Tobacco Use/Smoking Question Answer Notes Are you a: nonsmoker Additional Findings: Tobacco Non-User Current no n-smoker Alcohol Screen Question Answer Notes Did you have a drink containing alcohol in the p ast year? No Points 0 Interpretation Negative Tobacco use other than smoking: Question Answer Notes Are you an other tobacco user? No Vital Signs Height 5ft 4in in 07/30/2024 Weight 180 lbs 07/30/2024 BMI 30.89 kg/m2 07/30/2024 Procedures Procedure Date Ordered Date Performed Result Body Sit e 24063-EFQDJZT NAIL, 6 OR MORE 07/30/2024 N/A 50375-VPJR SKIN LESIONS, 2 TO 4 07/30/2024 N/A Encounters Encounter Location Date Provider Diagnosis [facility] [address] [place] [id number] 07/30/2024 Alphonso Chance Type 2 diabetes mellitus with diabetic peripheral angiopathy without gangrene E11.51 ; Tinea unguium B35.1 ; Pain in right toe(s) M79.674 ; Pain in left toe(s) M79.675 and Tinea pedis of both feet B35.3 Assessments Encounter Date Diagnosis (ICD Code) Assessment Notes Treatment Notes Treatment Clinical Notes Section Notes 07/30/2024 Type 2 diabetes mellitus with diabetic peripheral angiopathy without gangrene (ICD-10 - E11.51) Q7(A), Q8(2B), Q9(1B,2C) 07/30/2024 Tinea unguium (ICD-10 - B35.1) 07/30/2024 Pain in right toe(s) (ICD-10 - M79.674) 07/30/2024 Pain in left toe(s) (ICD-10 - M79.675) 07/30/2024 Tinea pedis of both feet (ICD-10 - B35.3) Plan Of Treatment Medication Medication Name Sig Start Date Stop Date Notes Ciclopirox Olamine 0.77 % 1 application Externally Twice a day to skin of feet including between the toes for 30 days Pending Test Test Name Order Date 73826-USXARTU NAIL, 6 OR MORE 07/30/2024 00385-KYBO SKIN LESIONS, 2 TO 4 07/30/20 24 Next Appt Details Follow Up: prn, Reason: Provider Name:Alphonso Chance , 10/29/2024 02:30:00 PM, [address] [facility], [address], [place], [address], Procedure Notes * Category Sub-Category Detail Notes Debride Nail 6-10 Nail debridement Performance o f this nail treatment by a nonprofessional would put this patients foot and overall health at risk. Therefore, debridement to affected nail(s), as described in exam, was performed extensively to reduce/remove overall nail length, girth, thickness, subungual debris, and necrotic tissue, by manual and/or electrical means through the use of a nail nipper and/or dremel-type shear grinder operator, to a more viable healthy nail plate or bed tissue 6-10 nails in total. Silver nitrate was used for any petechial bleeding as necessary. Definitive antifungal treatment options, both pharmaceutical and surgical, have been reviewed and discussed with the patient. The patient solely prefers the use of intermittent/as needed professional debridement services for their nail condition and understands the need for additional periodic treatments to maintain effectiveness in symptomatic relief - 22187 Keratoma Treatment Parring or Cutting o f Benign Hyperkeratotic Lesion(s) (-56) 2-4 Lesions - The Benign hyperkeratotic lesions, ( 2) in total, locations as stated and described in exam, were pared, and/or cut utilizing a sterile 15 blade, tissue nippers, and/or power dremel instrumentation - 32240, Q8 Progress Notes * Tamy SINGLETARY: (74 yo F)Acc No.[id number]:07/30/2024 Progress Note Patient:?Alicia SINGLETARY Provider:?Alphonso Chance DPM :1950???Age:74 Y???Sex:Female D ate:07/30/2024 Address:[address] [place] [address], [facility] , [place], [place] Pcp:Sherwin Champion MD Subjective: * Chief Complaints: * ???At Risk FootcarePainful N ail(s) aggravated by shoes and causing difficulty standing/walkingSkin Problem * HPI: ???At Risk footcare:?Pt States Last PCP Visit:?Date?05/01/2024 ???Skin problems:?Nature:?scaling , redness.?Location:?B/L .?Duration:?several days.?Course:?worse.? * ROS:?General/Constitutional:?Nausea?denies.?Vomiting?denies.?Hunger Thirst?denies.?Loss appetite?denies.?Chills?denies.?Fatigue?denies.?Fever?denies.?Night Sweats?denies.?Unexplained weight loss?denies.?Unexplained weight gain?denies.?HEENTM:?Dentures?denies.?Dizziness?denies.?Glasses/contacts?admits.?Retinopathy?de nies.?Blurred/double vision?denies.?TMJ?denies.?Discharge/drainage?denies.?Implants?denies.?Sore throat?denies.?Dental implants?denies.?Hard of hearing ?admits.?Difficulty chewing/swallowing/speaking?denies.?Nose bleeds?denies.?Sore mouth?denies.?Respiratory:?On Oxygen?denies.?Pneumonia/pleurisy?denies.?Bronchitis?denies.?Emphysema?denies.?C oughing?denies.?Cough blood?denies.?Shortness of breath?denies.?Wheezing?denies.?Cardiovascular:?Pacemaker?denies.?MVP?denies.?WPW?denies.?CHF?denies.?Heart attack?denies.?Septal defect?denies.?Rapid beat?denies.?Chest pain ?denies.?Atrial Fib.?denies.?Murmur/Palpitations?denies.?Gastrointestinal:?Hemorrhoids?denies.?Stomach/Abdominal pain?denies.?Dark blood stool?denies.?Irritable bowel ?denies.?Constipation?denies.?Diarrhea?denies.?Hematology:?Swelling?denies.?Clots?denies.?Varicose Veins?admits.?Bruising?denies.?Bleeding problem?denies.?Genitourinary:?Blood urine?denies.?Frequent/Painfu/urination/bladder control?denies.?Kidney stones?denies.?Infection (UTI)?denies.?Nephropathy?denies.?sex trans dis (STD)?denies.?Prostate?denies.?Musculoskeletal:?Hammertoes?admits.?Bunions?denies.?Back Pain?admits.?Muscle Cramps/ Resting?denies.?Muscle cramps / walking?denies.?Generalized aches and pains?denies.?Weakness?denies.?Integ.:?Alvarado?denies.?Scars?denies.?Corns/calluses?admits.?Ingrown nails?admits.?Painful nails?admits.?Open Sores?denies.?Rashes?denies.?Neurologic:?Difficulty sleeping?denies.?Brain disorder?denies.?Numbness?denies.?Balance trouble?denies.?Confusion?denies.?Fainting/blackouts?denies.?Tingling?admits.?Tr emors?denies.? * Medical History:? * Surgical History:?No Surgica l History documented. * Hospitalization/Major Diagno stic Procedure:?No Hospitalization History. * Family History:?Mother: dece ased.?Father: , heart attack.?Spouse: .? * Social History:?Tobacco Use:?Tobacco Use/Smoking?Are you a:?nonsmoker ?Additional Findings: Tobacco Non-User?Current non-smoker ?Tobacco use other than smoking?Are you an other tobacco user??No ???Drugs/Alcohol:?Drugs?Have you used drugs other than those for medical reasons in the past 12 months??No ?Alcohol Screen?Did you have a drink containing alcohol in the past year??No ?Points?0 ?Interpretation?Negative ???Miscellaneous:?Caffeine: yes. ?Children: yes, 3. ?Exercise: no. ?Marital status: . * Medications:?TakingAlendrona te Sodium 70 MG Tablet 1 tablet 30 minutes before the first food, beverage or medicine of the day with plain water Orally Atorvastatin Calcium 40 MG Tablet 1 tablet Orally Once a day Citalopram Hydrobromide 10 MG Tablet 1 tablet Orally Once a day Dorzolamide HCl-Timolol Mal 22.3-6.8 MG/ML Solution 1 drop into affected eye Ophthalmic Twice a day Enalapril Maleate 20 MG Tablet 1 tablet Orally Once a day Fluticasone Propionate 50 MCG/ACT Suspension 1 spray in each nostril Nasally Once a day glipiZIDE 10 MG Tablet 1 tablet 30 minutes before breakfast Orally Once a day hydroCHLOROthiazide 12.5 MG Capsule 1 capsule in the morning Orally Once a day metFORMIN HCl 850 MG Tablet 1 tablet with a meal Orally Once a day Pantoprazole Sodium 20 MG Tablet Delayed Release 1 tablet Orally Once a day Simvastatin 40 MG Tablet 1 tablet in the evening Orally Once a day Medication List reviewed and reconciled with the patientTaking Alendronate Sodium 70 MG Tablet 1 tablet 30 minutes before the first food, beverage or medicine of the day with plain water Orally Taking Atorvastatin Calcium 40 MG Tablet 1 tablet Orally Once a day Taking Citalopram Hydrobromide 10 MG Tablet 1 tablet Orally Once a day Taking Dorzolamide HCl-Timolol Mal 22.3-6.8 MG/ML Solution 1 drop into affected eye Ophthalmic Twice a day Taking Enalapril Maleate 20 MG Tablet 1 tablet Orally Once a day Taking Fluticasone Propionate 50 MCG/ACT Suspension 1 spray in each nostril Nasally Once a day Taking glipiZIDE 10 MG Tablet 1 tablet 30 minutes before breakfast Orally Once a day Taking hydroCHLOROthiazide 12.5 MG Capsule 1 capsule in the morning Orally Once a day Taking metFORMIN HCl 850 MG Tablet 1 tablet with a meal Orally Once a day Taking Pantoprazole Sodium 20 MG Tablet Delayed Release 1 tablet Orally Once a day Taking Simvastatin 40 MG Tablet 1 tablet in the evening Orally Once a day Medication List reviewed and reconciled with the patient * Allergies:?Latex: swelling, itchingyes[Allergies Verified] Objective: * Vitals:?Ht: 5ft 4in, Wt:180, BMI:30.89, Shoe size: 8.5, BS: 167, Ht-cm: 162.56 cm, Wt-k.65 kg. * ???Past Orders: ???Lab:HEMOGLOBIN A1C (GLYCO HEMOGLOBIN) (Order Date - 10/18/2023) (Collection Date & Time - 10/18/2023 01:42 PM) ? Value Reference Range ?HEMOGLOBIN A1C % (HH) 7 * Examination: ???Vascular: ?DP PULSES(B):?1/4, B/L.?PT PULSES(B):? 0/4, B/L.?CAPILLARY FILL TIME:? delayed, all digits, B/L.?TROPHIC CONDITION-TEXTURE/ELASTICITY/TURGOR/HAIR GROWTH(B):? decreased,?with sparse to absent hair growth, B/L.?TEMPERTURE GRADIENT(C):? decreased, cool to cool, proximal to distal, B/L.?PIGMENTATION:?mottled, B/L.?EDEMA(C):?absent, B/L.?CLAUDICATION(C):?denies, B/L.?REST PAIN:?denies, B/L.?Nails: ?NAILS are:?Elongated, overgrown, dystrophic, lytic, greater than 3mm thick, discolored and friable with crumbly malodorous subungual debris, with pain on palpation , 1-5 B/L.?Dermatologic: ?SKIN FINDINGS:?Skin exam reveals Keratotic lesion(s) located at , Plantar, Heel(s) , B/L , Skin shows sign(s) of, erythema, scaling, in a moccasin fashion, no fissure(s) present, B/L.? Assessment: * Assessment: 1.?Type 2 diabetes mellitus with diabetic peripheral angiopathy without gangrene - E11.51 (Primary)???Notes :Q7(A), Q8(2B), Q9(1B,2C)???2.?Tinea unguium - B35.1???3.?Pain in right toe(s) - M79.674???4.?Pain in left toe(s) - M79.675???5.?Tinea pedis of both feet - B35.3???Specify :Acute problem, Uncomplicated (3),Rx drug management (4)??? Plan: * Treatment: 2.?Tinea unguium?Procedure: 17734-EWDMITU NAIL, 6 OR MORE 3.?Tinea pedis of both feet? Start Ciclopirox Olamine Cream, 0.77 %, 1 application, Externally, Twice a day to skin of feet including between the toes, 30 days, 60, Refills 2.?? * Procedures:?Debride Nail 6-10:?Nail debridement?Performance of this nail treatment by a nonprofessional would put this patients foot and overall health at risk. Therefore, debridement to affected nail(s), as described in exam, was performed extensively to reduce/remove overall nail length, girth, thickness, subungual debris, and necrotic tissue, by manual and/or electrical means through the use of a nail nipper and/or dremel-type shear grinder operator, to a more viable healthy nail plate or bed tissue 6-10 nails in total. Silver nitrate was used for any petechial bleeding as necessary. Definitive antifungal treatment options, both pharmaceutical and surgical, have been reviewed and discussed with the patient. The patient solely prefers the use of intermittent/as needed professional debridement services for their nail condition and understands the need for additional periodic treatments to maintain effectiveness in symptomatic relief - 66408.?Keratoma Treatment:?Parring or Cutting of Benign Hyperkeratotic Lesion(s)?(-56) 2-4 Lesions - The Benign hyperkeratotic lesions, ( 2) in total, locations as stated and described in exam, were pared, and/or cut utilizing a sterile 15 blade, tissue nippers, and/or power dremel instrumentation - 13864, Q8.? * Procedure Codes:?75474 DEBRI DE NAIL, 6 OR MORE, Modifiers: XS 40032 TRIM SKIN LESIONS, 2 TO 4, Modifiers: XS , Q8 * Preventive Medicine:? ??Counseling:?Discussion:?-13: Office or other outpatient visit for the evaluation and management of an established patient, which required a medically appropriate history and/or examination and LOW level of DECISION MAKING for: 1 STABLE ACUTE UNCOMPLICATED PROBLEM, 2 OR MORE MINOR PROBLEMS, OR 1 STABLE CHRONIC PROBLEM, THAT POSE(S) A LOW RISK FOR MORBIDITY/MORTALITY. The visit on the day of the encounter encompassed interpreting the data and educating the patient as to the nature of their condition, treatment options available according to their individual PMH, meds, allergies, and overall health/living conditions, as well as any potential risks or complications that may occur from a failure to adhere to, and participate in, the recommended course of therapy. The discussion included a complete verbal, and/or written explanation of the examination results, any x-rays taken, the proposed diagnosis, and outline of the treatment plan. A schedule for future care needs was also explained. The patient verbalized an understanding of the instructions at this time and agreed to be an active participant in their treatment. If the patient should think of any questions or concerns after the visit, I have encouraged the patient to call the office.?Tinea Pedis:?The patient was counseled on the diagnosis, potential etiologies, and treatment options for their skin condition. We discussed the risks and benefits of each option from performing no treatment, to utilizing OTC topical skin creams, prescription topical creams, customized compounded topical medications, and, if necessary, to utilize oral antifungal therapy. We discussed the advantages and disadvantages of each possible treatment and importance for adherence to all the recommended therapies for optimum success and avoid potential complications such as open sore/infection/possible hospitalization. We discussed the potential effectiveness of each topical preparation as well as each ones possible side effects and/or patient medication interactions if oral therapy is selected. Patient questions re: the advantages and disadvantages of each treatment choice, medication use/dosage, successful outcomes, and application consistency were reviewed and the patient verbalized that all answers were clearly understood. The patient was told they can help alleviate symptoms by utilizing moisture absorbant innersoles with activated charcoal and baking soda, applying antifungal sprays daily, aerating toe web spaces at night by putting cotton or lambs wool between the toes, alternating shoe gear daily if possible so they can dry out, changing socks at least once during the day, wearing well-ventilated shoes or sandals. The patient has decided to apply antifungal skin creams to their feet as directed. Rx was sent to their pharmacy at the time of visit.? * Follow Up:?prn * Images: * Sign off status: Completed true * Provider:?Alphonso Chance DPM Date:?2023 Generated for Chelsea grace/Luis Eduardo/Rejiitting on:?10/09/2024 02:19 PM EST History and Physical Notes * HPI (History of Present Illness) Category Sub-Category Detail Notes Category Not es Skin problems Nature: scaling , redness Location: B/L Duration: several days Course: worse At Risk footcare Pt States Last PCP Visit: Date: 4 Examination Category Sub-Category Detail Notes Category Not es Dermatologic SKIN FINDINGS: Skin exam reveal s Keratotic lesion(s) located at , Plantar, Heel(s) , B/L , Skin shows sign(s) of, erythema, scaling, in a moccasin fashion, no fissure(s) present, B/L Vascular DP PULSES (B): 1/4, B/L PT PULSES (B): 0/4, B/L CAPILLARY FILL TIME: delayed, all digits , B/L TEMPERTURE GRADIENT (C): decreased, cool to cool, proximal to distal, B/L TROPHIC CONDITION-TEXTURE/ELASTICITY/TURGOR/HAIR GROWTH (B): decreased, with sparse to absent hair gr owth, B/L EDEMA (C): absent, B/L CLAUDICATION (C): denies, B/L REST PAIN: denies, B/L PIGMENTATION: mottled, B/L Nails NAILS are: Elongated, overg rown, dystrophic, lytic, greater than 3mm thick, discolored and friable with crumbly malodorous subungual debris, with pain on palpation , 1-5 B/L
--- OUTSIDE RECORDS SUMMARY | 2024-10-09 14:19 | XMS_ITS | Encounter Summary ---
Author Organization [facility] Address [address] [place] [address] Care Team Providers Care Scheduler Maintenance Name Role Phone Unavailable Primary Care Provider Unavailabl e Encounter Details Date Type Department Care Team (Late st Contact Info) Description 10/13/2022 Lab Requisition [facility] [address] [place] [id number] John Martin MD [address] [place] [phone] Encounter for preprocedural laboratory examination Social History Tobacco Use Types Packs/Day Years Used Date Smoking Tobacco: Never Assessed Comments Unknown Sex and Gender Information Value Date Recorded Sex Assigned at Not on file Legal Sex Female 4:50 AM EST Gender Identity Not on file Sexual Orientation Not on file documented as of this encounter Plan of Treatment Not on file documented as of this encounter Visit Diagnoses Diagnosis Encounter for preprocedural laboratory examination documented in this encounter
--- OUTSIDE RECORDS SUMMARY | 2024-10-09 14:19 | XMS_ITS ---
Author Organization [facility] Address [address] [place] [address] Care Team Providers Care Control Supervisor Name Role Phone Jaycee CHEATHAM, Sherwin Primary Care Provider Alphonso Richter Unavailable [phone] Encounters Encounter Location Date Provider Diagnosis [address] [phone] 03/26/2024 Alphonso Chance Plan Of Treatment Next Appt Details Provider Name:Alphonso Chance , 10/29/2024 02:30:00 PM, [address] [place] [address], [phone], Progress Notes * Kath SINGLETARYB: (74 yo F)Acc No.[id number]:03/26/2024 Progress Note Patient:?Alicia SINGLETARY Provider:?Alphonso Chance DPM :1950???Age:73 Y???Sex:Female D ate:03/26/2024 Address:[address] [place], [place] [address] [place], [place] Pcp:Sherwin Champion MD Subjective: * Chief Complaints: * ??? * Medical History:? Objective: * Vitals:? Assessment: Plan: * Treatment: * Images: * The named appointment provid er may or may not be the originator of this progress note, and it is not deemed complete until electronically signed by the appointment provider. Sign off status: Pending * Provider:?Alphonso Chance DPM Date:?2023 Generated for Chelsea grace/Luis Eduardo/Mushtaq on:?10/09/2024 02:19 PM EST
--- OUTSIDE RECORDS SUMMARY | 2024-10-09 14:19 | XMS_ITS | Patient Health Record ---
[facility] Organization [facility] Address [address] [place] [address] Care Team Providers Care Client Reporting Associate Name Role Phone Sherwin Champion MD Primary Care Provider Alphonso Richter Unavailable [phone] Allergies Allergen (clinical drug ingredient) Drug/Non Drug Allergy documented on EMR Reaction Allergy Type Onset Date Status Latex Latex swelling, itching Allergy Active Results Component Value Reference Range Notes HEMOGLOBIN A1C (GLYCOHEMOGLO BIN) Reviewed date:10/18/2023 01:42:27 PM Interpretation: Performing Lab: Notes/Report: HEMOGLOBIN A1C % (HH) 7 Reason For Referral No Information Medications Medication SIG (Take, Route, Frequency, Duration) Notes Start Date End Date Status Pantoprazole Sodium 20 MG 1 tablet Orall y Once a day Active hydroCHLOROthiazide 12.5 MG 1 capsule in the morning Orally Once a day Active metFORMIN HCl 850 MG 1 tablet with a grnat l Orally Once a day Active Fluticasone Propionate [...] a day for 30 day(s) 05/03/2023 Active Ciclopirox Olamine 0.77 % 1 application Externally Twice a day to skin of feet including between the toes for 30 days Active Citalopram Hydrobromide 10 MG 1 tablet O rally Once a day for 30 day(s) 05/03/2023 Active Simvastatin 40 MG 1 tablet in the evening Orally Once a day Active Alendronate Sodium 70 MG 1 tablet 30 min utes before the first food, beverage or medicine of the day with plain water Orally for 30 day(s) 05/03/2023 Active Social History [...] Are you an other tobacco user? No Problems Problem Type SNOMED Code ICD Code Onset Dates Problem Status W/U Status Risk Notes Problem Acquired hammer toe of right foot (5859433434965 105) Other hammer toe(s) (acquired), right foot (M20.41) Active confirmed Response to treatment,I mprovement Problem Type 2 diabetes mellitus with peripheral angiopathy (369328317) Type 2 diabetes mellitus with diabetic peripheral angiopathy without gangrene (E11.51) Active confirmed Q7(A), Q8(2B), Q9(1B,2C) Problem Acquired hammer toe of left foot (7691883867300 103) Other hammer toe(s) (acquired), left foot (M20.42) Active confirmed Response to treatment,I mprovement Vital Signs Height 5ft 4in in 07/30/2024 Weight 180 lbs 07/30/2024 BMI 30.89 kg/m2 07/30/2024 Procedures Procedure Date Ordered Date Performed Result Body Sit e 29869-JDYYEJI NAIL, 6 OR MORE 10/18/2023 N/A 44515-Gxrzbhtp Plate 10/18/2023 N/A 68595-FQNX SKIN LESIONS, 2 TO 4 10/18/2023 N/A 65347-QGCOEAV NAIL, 6 OR MORE 12/27/2023 N/A 60916-NSDR SKIN LESIONS, 2 TO 4 12/27/2023 N/A 12951-HQBPONY NAIL, 6 OR MORE 04/21/2024 N/A 49931-Ahrqkzyo Plate 04/21/2024 N/A 39234-FLHZ SKIN LESIONS, 2 TO 4 04/21/2024 N/A 69711-EYDSPDZ NAIL, 6 OR MORE 07/30/2024 N/A 77899-JZAG SKIN LESIONS, 2 TO 4 07/30/2024 N/A Encounters Encounter Location Date Provider Diagnosis [address] [address] 10/18/2023 Alphonso Chance Type 2 diabetes mellitus with diabetic peripheral angiopathy without gangrene E11.51 ; Tinea unguium B35.1 ; Pain in right toe(s) M79.674 ; Pain in left toe(s) M79.675 and Ingrown nail L60.[address] [address] 12/27/2023 Alphonso Chance Type 2 diabetes mellitus with diabetic peripheral angiopathy without gangrene E11.51 ; Tinea unguium B35.1 ; Pain in right toe(s) M79.674 and Pain in left toe(s) M79.[address] [address] 04/21/2024 Alphonso Chance Type 2 diabetes mellitus with diabetic peripheral angiopathy without gangrene E11.51 ; Tinea unguium B35.1 ; Pain in right toe(s) M79.674 ; Pain in left toe(s) M79.675 ; Other hammer toe(s) (acquired), right foot M20.41 ; Other hammer toe(s) (acquired), left foot M20.42 and Ingrown nail L60.[address] [address] 07/30/2024 Alphonsotiffanie Chance Type 2 diabetes mellitus with diabetic peripheral angiopathy without gangrene E11.51 ; Tinea unguium B35.1 ; Pain in right toe(s) M79.674 ; Pain in left toe(s) M79.675 and Tinea pedis of both feet B35.[address] [address] [facility]/2024 [facility] [place] [address] [address] [facility] [place] [address] [address] 02/29/2024 [facility] [address] [address] [facility] Date Diagnosis (ICD Code) Assessment Notes Treatment Notes Treatment Clinical Notes Section Notes 10/18/2023 Type 2 diabetes mellitus with diabetic peripheral angiopathy without gangrene (ICD-10 - E11.51) 10/18/2023 Tinea unguium (ICD-10 - B35.1) 12/27/2023 Type 2 diabetes mellitus with diabetic peripheral angiopathy without gangrene (ICD-10 - E11.51) 12/27/2023 Tinea unguium (ICD-10 - B35.1) 04/21/2024 Type 2 diabetes mellitus with diabetic peripheral angiopathy without gangrene (ICD-10 - E11.51) 04/21/2024 Tinea unguium (ICD-10 - B35.1) 07/30/2024 Type 2 diabetes mellitus with diabetic peripheral angiopathy without gangrene (ICD-10 - E11.51) Q7(A), Q8(2B), Q9(1B,2C) 07/30/2024 Tinea unguium (ICD-10 - B35.1) 04/21/2024 Pain in right toe(s) (ICD-10 - M79.674) 07/30/2024 Pain in right toe(s) (ICD-10 - M79.674) 12/27/2023 Pain in right toe(s) (ICD-10 - M79.674) 10/18/2023 Pain in right toe(s) (ICD-10 - M79.674) 10/18/2023 Pain in left toe(s) (ICD-10 - M79.675) 12/27/2023 Pain in left toe(s) (ICD-10 - M79.675) 07/30/2024 Pain in left toe(s) (ICD-10 - M79.675) 04/21/2024 Pain in left toe(s) (ICD-10 - M79.675) 07/30/2024 Tinea pedis of both feet (ICD-10 - B35.3) 04/21/2024 Other hammer toe(s) (acquired), right foot (ICD-10 - M20.41) Response to treatment,Impro vement 10/18/2023 Ingrown nail (ICD-10 - L60.0) 04/21/2024 Other hammer toe(s) (acquired), left foot (ICD-10 - M20.42) Response to treatment,Impro vement 04/21/2024 Ingrown nail (ICD-10 - L60.0) 10/18/2023 Other 12/27/2023 Other 04/21/2024 Other Plan Of Treatment Pending Test Test Name Order Date 85740-ELNMOBP NAIL, 6 OR MORE 06/20/2023 63009-VMNDXXG NAIL, 6 OR MORE 10/18/2023 44236-VBYRSZH NAIL, 6 OR MORE 12/27/2023 43661-WBKISQU NAIL, 6 OR MORE 04/21/2024 67525-ESFWGRT NAIL, 6 OR MORE 07/30/2024 64053-Bmpjafyb Plate 04/21/2024 67787-Uxznocyo Plate 10/18/2023 70926- Debride <25 sq cm 08/17/2023 47194-CLQF SKIN LESIONS, 2 TO 4 12/27/19 24 05504-BKPA SKIN LESIONS, 2 TO 4 10/18/19 24 90173-NDTY SKIN LESIONS, 2 TO 4 06/20/20 23 78697-RYUE SKIN LESIONS, 2 TO 4 07/30/20 24 01138-HJQO SKIN LESIONS, 2 TO 4 04/21/20 24 Next Appt Details Provider Name:Alphonso Chance , 10/29/2024 02:30:00 PM, [address] [facility] [address], [place], [address], Insurance Providers Payer Name Payer Address Payer Phone Subscriber Number Group Number Insured Name Patient Relationship to Insured Coverage Start Date Coverage End Date [employer] Medicare Open [address] [place] [address] [id number] Deb Ruff Self - patient is the insured Medical (General) History Medical History History ICD Code CAD (Cholesterol) type II diabetes High blood pressure Measles Mumps Chicken pox
--- OUTSIDE RECORDS SUMMARY | 2024-10-09 14:19 | XMS_ITS ---
Author Organization [facility] [place] Address [address] [place] [address] Care Team Providers Care Academic Interventionist Name Role Phone Sherwin Champion MD Primary Care Provider Alphonso Richter Unavailable [phone] Allergies Allergen (clinical drug ingredient) Drug/Non Drug Allergy documented on EMR Reaction Allergy Type Onset Date Status Latex Latex swelling, itching Allergy Active REASON FOR VISIT At Risk Footcare, Painful Nail(s) aggrevated by shoes and causing difficulty standing/walking, Toe Irritation, Ingrown Nail Medications Medication SIG (Take, Route, Frequency, Duration) Notes Start Date End Date Status Simvastatin 40 MG 1 tablet in the evening Orally Once a day Active Alendronate Sodium 70 MG 1 tablet 30 min utes before the first food, beverage or medicine of the day with plain water Orally for 30 day(s) 05/03/2023 Active Atorvastatin Calcium 40 MG 1 tablet Oral ly Once a day for 30 day(s) 05/03/2023 Active Citalopram Hydrobromide 10 MG 1 tablet O rally Once a day for 30 day(s) 05/03/2023 Active Dorzolamide HCl-Timolol Mal 22.3-6.8 MG/ML 1 drop into affected eye Ophthalmic Twice a day 05/03/2023 Active Pantoprazole Sodium 20 MG 1 tablet Orall y Once a day Active Fluticasone Propionate 50 MCG/ACT 1 spray in each nostril Nasally Once a day Active glipiZIDE 10 MG 1 tablet 30 minutes before breakfast Orally Once a day Active hydroCHLOROthiazide 12.5 MG 1 capsule in the morning Orally Once a day Active metFORMIN HCl 850 MG 1 tablet with a grant l Orally Once a day Active Enalapril Maleate 20 MG 1 tablet Orally Once a day Active Social History Tobacco Use: Social History [...] tobacco user? No Vital Signs Height 5ft 4 in in 04/21/2024 Weight 180 lbs 04/21/2024 BMI 30.89 kg/m2 04/21/2024 Procedures Procedure Date Ordered Date Performed Result Body Sit e 89981-ZFFCRMK NAIL, 6 OR MORE 04/21/2024 N/A 33663-Zyslhgss Plate 04/21/2024 N/A 46610-CTMT SKIN LESIONS, 2 TO 4 04/21/2024 N/A Encounters Encounter Location Date Provider Diagnosis [facility] [address] [address] 04/21/2024 Alphonso Chance Type 2 diabetes mellitus with diabetic peripheral angiopathy without gangrene E11.51 ; Tinea unguium B35.1 ; Pain in right toe(s) M79.674 ; Pain in left toe(s) M79.675 ; Other hammer toe(s) (acquired), right foot M20.41 ; Other hammer toe(s) (acquired), left foot M20.42 and Ingrown nail L60.0 Assessments Encounter Date Diagnosis (ICD Code) Assessment Notes Treatment Notes Treatment Clinical Notes Section Notes 04/21/2024 Type 2 diabetes mellitus with diabetic peripheral angiopathy without gangrene (ICD-10 - E11.51) 04/21/2024 Tinea unguium (ICD-10 - B35.1) 04/21/2024 Pain in right toe(s) (ICD-10 - M79.674) 04/21/2024 Pain in left toe(s) (ICD-10 - M79.675) 04/21/2024 Other hammer toe(s) (acquired), right foot (ICD-10 - M20.41) Response to treatment,Impro vement 04/21/2024 Other hammer toe(s) (acquired), left foot (ICD-10 - M20.42) Response to treatment,Impro vement 04/21/2024 Ingrown nail (ICD-10 - L60.0) 04/21/2024 Other Plan Of Treatment Pending Test Test Name Order Date 45792-BEJOPLJ NAIL, 6 OR MORE 04/21/2024 98133-Udgjeedt Plate 04/21/2024 11286-CUVV SKIN LESIONS, 2 TO 4 04/21/20 24 Next Appt Details Follow Up: 2 Months, Reason: Provider Name:Alphonso Chance , 10/29/2024 02:30:00 PM, [address] [facility], [address], [place], [address], Procedure Notes * Category Sub-Category Detail Notes Nail Avulsion Procedure A fine sterile e levator was placed between the eponychium, nail fold, and nail plate to separate the structures. A sterile nail splitter, and/or sterile 316 blade, was then used to longitudinally section the nail along its entire length through the eponychium to the area under the nail fold. The offending portion of nail was from the nail bed with a rolling action and then removed with a hemostat. No underlying bone was identified. There was minimal bleeding as hemostasis was achieved through the temporary use of either a digital tourniquet or the aforementioned local with epinephrine. A bacitracin sterile dressing was applied. Local wound aftercare instructions were discussed and dispensed. The patient was informed of both conservative and future surgical procedures to prevent recurrence. Tylenol or Motrin was recommended for pain or discomfort (22276) , DIABETES: Pt was advised as to the risk of delayed or nonhealing due to diabetes. Pt is to call the office with any questions, concerns, or complications Anesthesia 2cc of 1 percent Lid ocaine Plain local anesthesic utilizing aseptic technique Location Lateral nail border , T5 Debride Nail 6-10 Nail debridement Performance o f this nail treatment by a nonprofessional would put this patients foot and overall health at risk. Therefore, nail debridement was performed extensively to reduce/remove overall nail length, girth, thickness, subungual debris, and necrotic tissue, by manual and/or electrical means through the use of a nail nipper and/or dremel-type microgrinder operator, to a more viable healthy nail plate or bed tissue 6-10. Silver nitrate used for any petechial bleeding as necessary. Definitive antifungal treatment options have been reviewed and discussed with the patient. The patient chooses, no pharmaceutical tx (53071) Keratoma Treatment Parring or Cutting o f Benign Hyperkeratotic Lesion(s) 59010 ( 2-4 Lesions ) - The Benign hyperkeratotic lesions, as described above were pared, and/or cut utilizing a sterile 15 blade, tissue nippers, and/or dremel , Q9 Progress Notes * Kath SINGLETARYB: (74 yo F)Acc No.[id number]:04/21/2024 Progress Note Patient:?BRYSONREGISAlicia SANDERS Provider:?Alphonso Chance DPM :1950???Age:74 Y???Sex:Female D ate:04/21/2024 Address:[address] [place], [place] [id number] Pcp:Sherwin Champion MD Subjective: * Chief Complaints: * ???At Risk FootcarePainful N ail(s) aggrevated by shoes and causing difficulty standing/walkingToe IrritationIngrown Nail * HPI: ???At Risk footcare:?Pt States Last PCP Visit:?Date?10/15/2023 States has an appt with PCP soon - beginning of Sep ???Toe pain:?Treatments:?Rx shoes.? * ROS:?General/Constitutional:?Nausea?denies.?Vomiting?denies.?Hunger Thirst?denies.?Loss appetite?denies.?Chills?denies.?Fatigue?denies.?Fever?denies.?Night Sweats?denies.?Unexplained weight loss?denies.?Unexplained [...] * Allergies:?Latex: swelling, itchingyes[Allergies Verified] Objective: * Vitals:?Ht:5ft 4 in, Wt:180, BMI:30.89, Shoe size:8.5, BS:Didn't Test, Ht-cm: 162.56 cm, Wt-k.65 kg. * ???Past Orders: ???Lab:HEMOGLOBIN A1C (GLYCO HEMOGLOBIN) (Order Date - 10/18/2023) (Collection Date & Time - 10/18/2023 01:42 PM) ? Value Reference Range ?HEMOGLOBIN A1C % (HH) 7 * Examination: ???Vascular: ?DP PULSES (B):?1/4, B/L.?PT PULSES (B):? 0/4, B/L.?CAPILLARY FILL TIME:? delayed, all digits, B/L.?TROPHIC CONDITION-TEXTURE/ELASTICITY/TURGOR/HAIR GROWTH (B):? decreased, B/L.?TEMPERTURE GRADIENT (C):? decreased, cool to cool, proximal to distal, B/L.?PIGMENTATION:?mottled, B/L.?EDEMA (C):?absent, B/L.?CLAUDICATION (C):?denies, B/L.?REST PAIN:?denies, B/L.?Nails: ?NAILS are:?Elongated, overgrown, dystrophic, lytic, greater than 3mm thick, discolored and friable with crumbly malodorous subungual debris, with pain on palpation , 1-5 B/L.?Dermatologic: ?SKIN FINDINGS:?Skin exam reveals Keratotic lesion(s) located at , Heel(s) , B/L.?Orthopedic: ?DIGITAL DEFORMITIES:?Digital contracture, PIPJ, 2-5 B/L, incompl-reducible to push-up test, no over, nor underlapping, now no longer, with evidence of shoe producing skin irritation.?FOOTWEAR:?good condition, exhibit proper fit and accommodation for pedal deformities. OT were inspected and noted to be worn, but in good condition giving proper support at the present time.?Ingrown Nail: ?INSPECTION:?Reveals nail incurvation, pain on palpation, groove hypertrophy , Lateral nail border , T5.? Assessment: * Assessment: 1.?Type 2 diabetes mellitus with diabetic peripheral angiopathy without gangrene - E11.51???2.?Tinea unguium - B35.1???3.?Pain in right toe(s) - M79.674???4.?Pain in left toe(s) - M79.675???5.?Other hammer toe(s) (acquired), right foot - M20.41???Specify :Chronic problem, Stable (1=3,2=4)???Notes :Response to treatment,Improvement???6.?Other hammer toe(s) (acquired), left foot - M20.42???Specify :Chronic problem, Stable (1=3,2=4)???Notes :Response to treatment,Improvement???7.?Ingrown nail - L60.0??? Plan: * Treatment: 2.?Tinea unguium?Procedure: 80317-XZPYREK NAIL, 6 OR MORE 3.?Ingrown nail?Procedure: 85969-Zamrggig Plate * Procedures:?Debride Nail 6-10:?Nail debridement?Performance of this nail treatment by a nonprofessional would put this patients foot and overall health at risk. Therefore, nail debridement was performed extensively to reduce/remove overall nail length, girth, thickness, subungual debris, and necrotic tissue, by manual and/or electrical means through the use of a nail nipper and/or dremel-type microgrinder operator, to a more viable healthy nail plate or bed tissue 6-10. Silver nitrate used for any petechial bleeding as necessary. Definitive antifungal treatment options have been reviewed and discussed with the patient. The patient chooses, no pharmaceutical tx (32944).?Keratoma Treatment:?Parring or Cutting of Benign Hyperkeratotic Lesion(s)?19515 ( 2-4 Lesions ) - The Benign hyperkeratotic lesions, as described above were pared, and/or cut utilizing a sterile 15 blade, tissue nippers, and/or dremel , Q9.?Nail Avulsion:?Location?Lateral nail border?,?T5.?Anesthesia?2cc of 1 percent Lidocaine Plain local anesthesic utilizing aseptic technique.?Procedure?A fine sterile elevator was placed between the eponychium, nail fold, and nail plate to separate the structures. A sterile nail splitter, and/or sterile 316 blade, was then used to longitudinally section the nail along its entire length through the eponychium to the area under the nail fold. The offending portion of nail was from the nail bed with a rolling action and then removed with a hemostat. No underlying bone was identified. There was minimal bleeding as hemostasis was achieved through the temporary use of either a digital tourniquet or the aforementioned local with epinephrine. A bacitracin sterile dressing was applied. Local wound aftercare instructions were discussed and dispensed. The patient was informed of both conservative and future surgical procedures to prevent recurrence. Tylenol or Motrin was recommended for pain or discomfort (95976) , DIABETES: Pt was advised as to the risk of delayed or nonhealing due to diabetes. Pt is to call the office with any questions, concerns, or complications.? * Procedure Codes:?40195 Avuls ion Plate, Modifiers: XS , [id number] DEBRIDE NAIL, 6 OR MORE, Modifiers: XS 62022 TRIM SKIN LESIONS, 2 TO 4, Modifiers: XS , Q9 * Preventive Medicine:? ??Counseling:?Discussion:?-13: Office or other [...] have encouraged the patient to call the office.?Shoe Gear Counseling:?A thorough inspection of the patients Rxed shoegear and inserts was performed and findings communicated. We reviewed the many important medical advantages for adhering to regularly wearing these shoe and insert accomidative devices daily as well as reviewed the fact that a failure in accepting these recommedations may be deleterious, unable to prevent, and disadvantagely result in, many pedal complications such as skin irritation, skin ulceration, infection, and even loss of toe/foot/leg/or even their life. Time was also spent reviewing the proper footcare techniques including daily skin moisturization, daily foot inspection for any interruption in skin integrity, open lesions, or sign of infection such as redness/malodor/drainage/swelling as well as daily shoe inspection for the presence of internal foreign bodies and shoe as well as insert wear. Patient questions re: shoes, inserts, and self foot inspections were answered to their satisfaction as the patient verbally confirmed a full understanding of the above information.? ??Screening/Special Tests:?Fall Risk?Screening:?No falls in the past year ?FALLS: Screening for Future Fall Risk?Have you had any falls with injury in the past year??No * Follow Up:?2 Months * Images: * Sign off status: Completed true * Provider:?Alphonso Chance DPM Date:?2023 Generated for Chelsea grace/Luis Eduardo/Mushtaq on:?10/09/2024 02:18 PM EST History and Physical Notes * HPI (History of Present Illness) Category Sub-Category Detail Notes Category Not es Toe pain Treatments: Rx shoes At Risk footcare Pt States Last PCP Visit: Date: 10/15/2023 States has an appt with PCP soon - beginning of Sep Examination Category Sub-Category Detail Notes Category Not es Ingrown Nail INSPECTION: Reveals nail inc urvation, pain on palpation, groove hypertrophy , Lateral nail border , T5 Dermatologic SKIN FINDINGS: Skin exam reveal s Keratotic lesion(s) located at , Heel(s) , B/L Orthopedic FOOTWEAR: good condition, exhibit proper fit and accommodation for pedal deformities. OT were inspected and noted to be worn, but in good condition giving proper support at the present time DIGITAL DEFORMITIES: Digital contracture , PIPJ, 2-5 B/L, incompl-reducible to push-up test, no over, nor underlapping, now no longer, with evidence of shoe producing skin irritation Vascular DP PULSES (B): 1/4, B/L PT PULSES (B): 0/4, B/L CAPILLARY FILL TIME: delayed, all digits , B/L TEMPERTURE GRADIENT (C): decreased, cool to cool, proximal to distal, B/L TROPHIC CONDITION-TEXTURE/ELASTICITY/TURGOR/HAIR GROWTH (B): decreased, B/L EDEMA (C): absent, B/L CLAUDICATION (C): denies, B/L REST PAIN: denies, B/L PIGMENTATION: mottled, B/L Nails NAILS are: Elongated, overg rown, dystrophic, lytic, greater than 3mm thick, discolored and friable with crumbly malodorous subungual debris, with pain on palpation , 1-5 B/L
--- NOTE | 2024-10-09 14:33 | A.OFFPC_ITS ---
Vital Signs 10/09/24 14:38 Height 5 ft 3 in Weight 191 lb 6 oz BMI 33.9 BP 130/60 Blood Pressure Location Lt brachial Position Sitting Respiration 14 Pulse 98 Pulse Source Pulse Oximeter Temp 98.7 F Temp Source Oral Pulse Oximetry (%) 98 Oxygen Delivery Method Room Air Intake Visit Reasons: f/u diabetes Intake Note: f/u DM Allergies latex Allergy (Verified 10/09/24 14:33) Swelling Medication List - Last Reconciled 10/09/24 by Sherwin Champion MD alendronate 70 mg PO QWEEK 28 days atorvastatin 80 mg PO BEDTIME 90 days blood pressure monitor Automatic, Digital. Dx: I10. Daily As directed, 999 days/lifetime blood sugar diagnostic (VivaSmartTouch Verio test strips) As directed blood-glucose meter ([employer] Verio Flex Meter) As directed, 999 days cetirizine 10 mg PO DAILY PRN 30 days citalopram 10 mg PO DAILY empagliflozin (Jardiance) 25 mg PO QAM 30 days enalapril maleate 20 mg PO BID 90 days fluticasone propionate 50 mcg/actuation (Flonase Allergy Relief) 1 spray intranasal Q12H 30 days glipizide 10 mg PO BID 90 days hydrochlorothiazide 12.5 mg PO DAILY 90 days lancets ([employer] Delica Plus Lancet) 2 times a day As directed, 90 days metformin 850 mg PO BID pantoprazole 20 mg PO DAILY Tobacco use date assessed: 08/08/24 Dental Screening Dental Screen Date: 10/15/23 HPI f/u diabetes 2 HPI Details 74 y/o female presents to f/u [facility] ed diabetes. Had added Jardiance but pt had never gotten it/started it - had encouraged her to do so along with metformin, glipizide. Last A1c 08/08/24 9.1%. A1c today 10/09/24 is 8.8%. Has not been taking her glipizide. Ongoing depression. Does have a therapist. She is on citalopram 10mg daily. [facility] Medical History (Updated 08/08/24 @ 16:40 by Jarrell Beltran) Diabetes Liver problem HTN (hypertension) Surgical History History of total abdominal hysterectomy Family History Father CVD (cardiovascular disease) Mother No problems noted. Social History (Updated 08/08/24 @ 15:59 by Wendy Miranda CMA) Household Members: None Household Members Other:: Patient has a Dog, 4 years ago. Both parents involved: No Caregiver staying overnight: No Housing: Apartment Are you a primary critical care clinical nurse specialist to a significant other at home: No Do you presently have visiting nurse or other home services: No 75 years or older and lives alone: No Alcohol intake: never Patient Tobacco Use Status: Never used Tobacco e-Cigarette/Vaping Use: Never Used Second Hand Smoke Exposure: No service: No Current occupational status: retired Current occupational exposures/hazards: No Cognitive needs: No Hearing needs: Yes (hearing aide) Vision needs: No (glasses) Questionnaire PHQ-9 Over the last 2 weeks, how often have you been bothered by any of the following problems? 1. Little interest or pleasure in doing things: several days 2. Feeling down, depressed, or hopeless: several days 4. Feeling tired or having little energy: several days 5. Poor appetite or overeating: several days 6. Feeling bad about yourself - or that you are a failure or have let yourself or your family down: not at all 7. Trouble concentrating on things, such as reading the newspaper or watching television: several days 8. Moving or speaking so slowly that other people could have noticed. Or the opposite - being so fidgety or restless that you have been moving around a lot more than usual: several days 9. Thoughts that you would be better off or of hurting yourself in some way: not at all Source: Developed by Drs. Bill Whittaker, Isamar Sutherland, Scott Lopez and colleagues, with an educational ray from [employer]. Thrive Questionnaire Date Thrive assessed: 09/14/22 I am a: Patient What is your living situation today?: I have a steady place to live Within the past 12 months, did the food you bought not last and you didn't have the money to get more?: Never true Within the past 12 months, did you worry whether your food would run out before you got money to buy more?: Sometimes True Do you have trouble paying for medicines?: Yes Do you have trouble getting transportation to medical appointments?: No Do you have trouble paying your heating and electricity bill?: No Do you have trouble taking care of your child, family member or friend?: No Do you have trouble with day-to-day activities such as bathing, preparing meals, shopping, managing finances, etc.?: No Are you currently unemployed and looking for a job?: I choose not to answer this question Are you interested in more education?: No Please select the resources that you would like help with: Paying for medicine Currently or been in a relationship where the following occur: I choose not to answer THRIVE Score: 1 AUDIT C Alcohol Use Questionnaire (AUDIT-C) 1. How often do you have a drink containing alcohol?: Never Total Score: 0 LESLEE-7 AMB Questionnaire LESLEE-7 Date LESLEE - 7 assessed: 09/14/22 Feeling nervous, anxious, or on edge: 0 = Not at all Not being able to stop or control worryin = Several days Worrying too much about different things: 0 = Not at all Trouble relaxin = Several days Being so restless that it is hard to sit still: 0 = Not at all Becoming easily annoyed or irritable: 0 = Not at all Feeling afraid as if something awful might happen: 0 = Not at all Total LESLEE-7 score (0-4 normal; 5-9 mild; 10-14 moderate; 15-21 severe): 2 Source: Developed by Drs. Bill Whittaker, Isamar Sutherland, Scott Lopez and colleagues, with an educational ray from [employer]. Review of Systems Const Denies chills, Denies fatigue, Denies fever(s), Denies headache(s) and Denies weakness ENT Denies dizziness and Denies headache(s) Card Denies dyspnea Resp Denies cough, Denies dyspnea, Denies wheezing and Denies other (shortness of breath) Musc Denies numbness and Denies tingling Neuro Denies dizziness, Denies headache(s), Denies numbness, Denies tingling and Denies weakness Psych Denies anxiety and Reports depression Endo Denies fatigue Aller/Immun Denies wheezing Physical exam (Primary Care) Vital Signs: Last Vital Signs Temp 98.7 F 10/09/24 14:38 Pulse 98 10/09/24 14:38 Resp 14 10/09/24 14:38 BP 130/60 10/09/24 14:38 Pulse Ox 98 10/09/24 14:38 Oxygen Delivery Method Room Air 10/09/24 14:38 BMI result Body Mass Index 33.9 Tobacco/Smoking Status: Tobacco use Status Tobacco use date assessed 08/08/24 10/09/24 14:44 Patient Tobacco Use Status Never used Tobacco 10/09/24 14:44 e-Cigarette/Vaping Use Never Used 10/09/24 14:44 Thrive Assessment: Date of Thrive Assessment Date Thrive assessed 09/14/22 10/09/24 14:44 Currently or been in a relationship where the following occur: I choose not to answer Const General: well developed; No acute distress Nutritional Appearance: well nourished Orientation/consciousness: patient oriented x3 HENMT Head: Yes normocephalic and Yes atraumatic Eyes General: appearance normal, both eyes and all related structures Pupils: Equal, round and reactive pupils present EOM: EOMs intact bilaterally Resp Effort & Inspection: normal respiratory effort Auscultation: clear to auscultation bilaterally Cardio Rate: regular rate Rhythm: regular rhythm Heart sounds: S1 normal heart sound present, S2 normal heart sound present, no gallops, no murmurs and no rubs Neuro General: patient oriented x3 and gait normal Cranial nerves: Yes Equal, round and reactive pupils present Psych Affect: normal affect Results AMB Hemoglobin A1c AMB Hemoglobin A1c 8.8 % Last Edit by Theresa Sweet CMA on 10/09/24 14:49 Results Reviewed Results Reviewed: Laboratory Last Values Hgb A1c (Clinic) 8.8 % (4.0-6.0) H 10/09/24 14:48 Coding Level of Care Code Est Pt Level 4 (11119) Diagnoses Diabetes E11.9 Depression F32.9 Dry scalp R23.8 Assessment & Plan Assessment & Plan (1) Diabetes: Code(s): E11.9 - Type 2 diabetes mellitus without complications Category: Medical Plan: A1c?8.8%?from?9.1%?at?last?visit. Still?essentially?uncontrolled?diabetes.??Goal?is?less?7.0% She?is?not?taking?her?glipizide. She?is?only?taking?1?metformin?per?day She?has?had?difficulty?getting?multiple?medications?covered?including?Januvia. Will?start?Lantus?10?units?q.p.m. Continue?metformin She?will?no?longer?take?glipizide?for?now Check?blood?sugars?more?frequently?while?starting?me dication?and?let?me?know?if?there?is?a?problem We?will?follow-up?in?1?month (2) Depression: Code(s): F32.9 - Major depressive disorder, single episode, unspecified Category: Medical Plan: Worsened?depression?lately. She?has?a?therapist?and?is?taking?citalopram?10?mg?daily Will?start?bupropion?which?has?less?chance?of?causing?weight?gain (3) Dry scalp: Code(s): R23.8 - Other skin changes Category: Medical Plan: Patient?says?her?home?remedies?are?helping?with?this She?will?let?me?know?if?she?needs?a?referral?to?Dermatology Orders: Orders AMB Hemoglobin A1c Today E11.9 - Type 2 diabetes mellitus without complications Medications: New insulin glargine (Lantus Solostar U-100 Insulin) 10 units (0.1 mL) subcut QPM 30 days 3 mL 3RF bupropion HCl 75 mg PO DAILY 30 days 30 tabs 1RF pen needle, diabetic (BD Ultra-Fine Micro Pen Needle) To treat Blood sugar, Daily As directed, 90 days 100 ea 3RF E11.9 - Type 2 diabetes mellitus without complications Changed From metformin 850 mg PO BID 180 tabs 3RF To metformin 850 mg PO DAILY 90 days 90 tabs 3RF Discontinued empagliflozin (Jardiance) Discontinued Reason: Doctor's Order 25 mg PO QAM 30 days 30 tabs 2RF
[2024-10-09 14:38] VITALS: BP 130/60; PULSE 98; RESP 14; TEMP 37.1; O2SAT 98; BMI 33.9
== END 2024-10-09 15:29 | disposition home or self-care (01) ==
PROVIDERS: PCP Family Medicine; Visit Provider Family Medicine
DX: E11.9 Type 2 diabetes mellitus without complications (principal); F32.9 Major depressive disorder, single episode, unspecified; R23.8 Other skin changes

== ENCOUNTER → 2024-10-09 14:16 | Outpatient (BNVA) | payer OTHER, SELFPAY | PROVIDERS: PCP Family Medicine; Visit Provider Family Medicine | DX: E11.9 Type 2 diabetes mellitus without complications (principal); F32.9 Major depressive disorder, single episode, unspecified; R23.8 Other skin changes; Z79.84 Long term (current) use of oral hypoglycemic drugs; Z79.899 Other long term (current) drug therapy | CPT/HCPCS: 83036 ==

== ENCOUNTER 2024-10-28 13:43 | Outpatient (REF) | payer OTHER, SELFPAY ==
--- OUTSIDE RECORDS SUMMARY | 2024-10-28 17:22 | XMS_ITS ---
Author Organization [facility] Address [address] [place] [address] Care Team Providers Care Polisher Eyeglass Frames Name Role Phone Sherwin Champion MD Primary Care Provider Alphonso Richter Unavailable [phone] Allergies Allergen (clinical drug ingredient) Drug/Non Drug [...] Ordered Date Performed Result Body Sit e 33031-USSSEDG NAIL, 6 OR MORE 04/21/2024 N/A 88616-Bvwitvco Plate 04/21/2024 N/A 72330-EVZA SKIN LESIONS, 2 TO 4 04/21/2024 N/A Encounters Encounter Location Date Provider Diagnosis [facility] [address] [address] 04/21/2024 Alphonso Chance Type 2 diabetes mellitus [...] Treatment Pending Test Test Name Order Date 35301-NSEYKLL NAIL, 6 OR MORE 04/21/2024 81679-Xmobcpss Plate 04/21/2024 71314-DGIJ SKIN LESIONS, 2 TO 4 04/21/20 24 Next Appt Details Follow Up: 2 Months, Reason: Provider Name:Alphonso Chance , 10/29/2024 02:30:00 PM, [address] [facility], [address], [place], [address], Procedure Notes * Category Sub-Category Detail Notes [...] Motrin was recommended for pain or discomfort (65613) , DIABETES: Pt was advised as to [...] use of a nail nipper and/or dremel-type abrasive grinder, to a more viable healthy nail plate or bed tissue 6-10. Silver nitrate used for any petechial bleeding as necessary. Definitive antifungal treatment options have been reviewed and discussed with the patient. The patient chooses, no pharmaceutical tx (60879) Keratoma Treatment Parring or Cutting o f Benign Hyperkeratotic Lesion(s) 89013 ( 2-4 Lesions ) - The Benign hyperkeratotic lesions, as described above were pared, and/or cut utilizing a sterile 15 blade, tissue nippers, and/or dremel , Q9 Progress Notes * Kath SINGLETARYB: (74 yo F)Acc No.[id number]:04/21/2024 Progress Note Patient:?BRYSONREGISAlicia SANDERS Provider:?Alphonso Chance DPM :1950???Age:74 Y???Sex:Female D ate:04/21/2024 Address:[address] [place], [place] [id number] Pcp:Sherwin Champion MD Subjective: * Chief Complaints: [...] - L60.0??? Plan: * Treatment: 2.?Tinea unguium?Procedure: 08540-IYWLITN NAIL, 6 OR MORE 3.?Ingrown nail?Procedure: 59591-Pkkfqdcx Plate * Procedures:?Debride Nail 6-10:?Nail debridement?Performance of this nail treatment by a nonprofessional would put this patients foot and overall health at risk. Therefore, nail debridement was performed extensively to reduce/remove overall nail length, girth, thickness, subungual debris, and necrotic tissue, by manual and/or electrical means through the use of a nail nipper and/or dremel-type abrasive grinder, to a more viable healthy nail plate or bed tissue 6-10. Silver nitrate used for any petechial bleeding as necessary. Definitive antifungal treatment options have been reviewed and discussed with the patient. The patient chooses, no pharmaceutical tx (59599).?Keratoma Treatment:?Parring or Cutting of Benign Hyperkeratotic Lesion(s)?68227 ( 2-4 Lesions ) - The Benign [...] Motrin was recommended for pain or discomfort (03504) , DIABETES: Pt was advised as to the risk of delayed or nonhealing due to diabetes. Pt is to call the office with any questions, concerns, or complications.? * Procedure Codes:?02929 Avuls ion Plate, Modifiers: XS , [id number] DEBRIDE NAIL, 6 OR MORE, Modifiers: XS 18396 TRIM SKIN LESIONS, 2 TO 4, Modifiers: [...] DPM Date:?2023 Generated for Chelsea grace/Luis Eduardo/Mushtaq on:?10/28/2024 05:22 PM EST History and Physical Notes * [...]
--- OUTSIDE RECORDS SUMMARY | 2024-10-28 17:23 | XMS_ITS | Encounter Summary ---
Author Organization [facility] Address [address] [place] [address] Care Team Providers Care Unix Manager Name Role Phone Unavailable Primary Care Provider Unavailabl e Encounter Details Date Type Department Care Team (Late st Contact Info) Description 10/13/2022 Lab Requisition [facility] [address] [place] [id number] John Martin MD [address] [place] [phone] Encounter for preprocedural laboratory examination Social [...]
--- OUTSIDE RECORDS SUMMARY | 2024-10-28 17:23 | XMS_ITS | Clinical Summary ---
Author Organization [facility] Address [address] [place] [address] Care Team Providers Care Warehouse Foreman Name Role Phone Unavailable Primary Care Provider [...] DTaP,Tdap,and Td Vaccines (1 - Tdap) 1971 Pneumococcal Vaccine: 50+ Ye ars (1 of 1 - PCV) 2002 Zoster Vaccines (1 of 2) 2002 COVID-19 Vaccine ( - 2023-2 5 season) [...] patient's age to complete this topic Meningococcal B Vacine Aged Out No lo nger eligible based on patient's age to complete this topic RSV Immunization Patients Un matthew 20 months Aged Out No longer eligible b ased on patient's age to complete this topic Varicella Vaccines Aged Out No longer eligible based on patient's age to complete this topic
--- OUTSIDE RECORDS SUMMARY | 2024-10-28 17:23 | XMS_ITS ---
Author Organization [facility] [place] Address [address] [place] [address] Care Team Providers Care Director [employer] Name Role Phone Sherwin Champion MD Primary Care Provider Alphonso Richter Unavailable [phone] Allergies Allergen (clinical drug ingredient) Drug/Non Drug [...] Ordered Date Performed Result Body Sit e 37989-CKPYHZI NAIL, 6 OR MORE 07/30/2024 N/A 43766-EDPJ SKIN LESIONS, 2 TO 4 07/30/2024 N/A Encounters Encounter Location Date Provider Diagnosis [facility] [place] [address] [place] [phone] 07/30/2024 Alphonso Chance Type 2 diabetes mellitus [...] days Pending Test Test Name Order Date 13674-ACBDGMB NAIL, 6 OR MORE 07/30/2024 15098-OYZW SKIN LESIONS, 2 TO 4 07/30/20 24 Next Appt Details Follow Up: prn, Reason: Provider Name:Alphonso Chance , 10/29/2024 02:30:00 PM, [address] [facility], [address], [place], [address], Procedure Notes * Category Sub-Category Detail Notes [...] use of a nail nipper and/or dremel-type multifocal button grinder, to a more viable healthy nail [...] to maintain effectiveness in symptomatic relief - 88691 Keratoma Treatment Parring or Cutting o f Benign Hyperkeratotic Lesion(s) (-56) 2-4 Lesions - The Benign hyperkeratotic lesions, ( 2) in total, locations as stated and described in exam, were pared, and/or cut utilizing a sterile 15 blade, tissue nippers, and/or power dremel instrumentation - 11686, Q8 Progress Notes * Tamy SINGLETARY: (74 yo F)Acc No.[id number]:07/30/2024 Progress Note Patient:?Alicia SINGLETARY Provider:?Alphonso Chance DPM :1950???Age:74 Y???Sex:Female D ate:07/30/2024 Address:[address] [place] [address], [facility] , [place], [place] Pcp:Sherwin Champion MD Subjective: * Chief Complaints: [...] management (4)??? Plan: * Treatment: 2.?Tinea unguium?Procedure: 60949-THANPEL NAIL, 6 OR MORE 3.?Tinea pedis of [...] use of a nail nipper and/or dremel-type multifocal button grinder, to a more viable healthy nail [...] to maintain effectiveness in symptomatic relief - 27209.?Keratoma Treatment:?Parring or Cutting of Benign Hyperkeratotic Lesion(s)?(-56) 2-4 Lesions - The Benign hyperkeratotic lesions, ( 2) in total, locations as stated and described in exam, were pared, and/or cut utilizing a sterile 15 blade, tissue nippers, and/or power dremel instrumentation - 32861, Q8.? * Procedure Codes:?36913 DEBRI DE NAIL, 6 OR MORE, Modifiers: XS 24528 TRIM SKIN LESIONS, 2 TO 4, Modifiers: [...] DPM Date:?2023 Generated for Chelsea grace/Luis Eduardo/Rejiitting on:?10/28/2024 05:22 PM EST History and Physical [...]
--- OUTSIDE RECORDS SUMMARY | 2024-10-28 17:23 | XMS_ITS ---
Author Organization [facility] Address [address] [place] [address] Care Team Providers Care Natural Fabricator Name Role Phone Jaycee CHEATHAM, Sherwin Primary Care Provider Alphonso Richter Unavailable [phone] Encounters Encounter Location Date Provider Diagnosis [address] [address] 03/26/2024 Alphonso Chance Plan Of Treatment Next Appt Details Provider Name:Alphonso Chance , 10/29/2024 02:30:00 PM, [address] [place] [address], [phone], Progress Notes * Kath SINGLETARYB: (74 yo F)Acc No.[id number]:03/26/2024 Progress Note Patient:?Alicia SINGLETARY Provider:?Alphonso Chance DPM :1950???Age:73 Y???Sex:Female D ate:03/26/2024 Address:[address] [place], [place] [address] [place] Pcp:Sherwin Champion MD Subjective: * Chief Complaints: [...]
--- OUTSIDE RECORDS SUMMARY | 2024-10-28 17:23 | XMS_ITS | Patient Health Record ---
[facility] Address [address] [place] [address] Care Team Providers Care Head Of History Name Role Phone Sherwin Champion MD Primary Care Provider Alphonso Richter Unavailable [phone] Allergies Allergen (clinical drug ingredient) Drug/Non Drug Allergy documented on EMR Reaction Allergy Type Onset Date Status Latex Latex swelling, itching Allergy Active Reason For Referral No Information Medications Medication SIG (Take, Route, Frequency, Duration) Notes Start Date End Date Status Pantoprazole Sodium 20 MG 1 tablet Orall y Once a day Active hydroCHLOROthiazide 12.5 MG 1 capsule in the morning Orally Once a day Active metFORMIN HCl 850 MG 1 tablet with a grant l Orally Once a day Active Fluticasone [...] Problem Acquired hammer toe of right foot (9783105052830 105) Other hammer toe(s) (acquired), right foot (M20.41) Active confirmed Response to treatment,I mprovement Problem Type 2 diabetes mellitus with peripheral angiopathy (700567922) Type 2 diabetes mellitus with diabetic peripheral angiopathy without gangrene (E11.51) Active confirmed Q7(A), Q8(2B), Q9(1B,2C) Problem Acquired hammer toe of left foot (7354016109900 103) Other hammer toe(s) (acquired), left foot (M20.42) Active confirmed Response to treatment,I mprovement Vital Signs Height 5ft 4in in 07/30/2024 Weight 180 lbs 07/30/2024 BMI 30.89 kg/m2 07/30/2024 Procedures Procedure Date Ordered Date Performed Result Body Sit e 26591-KSNDCKR NAIL, 6 OR MORE 12/27/2023 N/A 45207-GVRH SKIN LESIONS, 2 TO 4 12/27/2023 N/A 30294-GEDCTIY NAIL, 6 OR MORE 04/21/2024 N/A 07675-Qryyfbgw Plate 04/21/2024 N/A 60712-BEOT SKIN LESIONS, 2 TO 4 04/21/2024 N/A 07591-LSCKQVE NAIL, 6 OR MORE 07/30/2024 N/A 98809-JSSX SKIN LESIONS, 2 TO 4 07/30/2024 N/A Encounters Encounter Location Date Provider Diagnosis [facility] [address] [address] 12/27/2023 Alphonso Meron Type 2 diabetes mellitus with diabetic peripheral angiopathy without gangrene E11.51 ; Tinea unguium B35.1 ; Pain in right toe(s) M79.674 and Pain in left toe(s) M79.[address] [address] 04/21/2024 Alphonso Chance Type 2 diabetes mellitus with diabetic peripheral angiopathy without gangrene E11.51 ; Tinea unguium B35.1 ; Pain in right toe(s) M79.674 ; Pain in left toe(s) M79.675 ; Other hammer toe(s) (acquired), right foot M20.41 ; Other hammer toe(s) (acquired), left foot M20.42 and Ingrown nail L60.[address] [address] 07/30/2024 Alphonso Chance Type 2 diabetes mellitus with diabetic peripheral angiopathy without gangrene E11.51 ; Tinea unguium B35.1 ; Pain in right toe(s) M79.674 ; Pain in left toe(s) M79.675 and Tinea pedis of both feet B35.3 [facility] [address] 01/01/[address] [address] 01/11/[address] [address] 02/29/[address] [address] 03/24/2024 Alphonso Chance Assessments Encounter Date Diagnosis (ICD Code) Assessment Notes Treatment Notes Treatment Clinical Notes Section Notes 12/27/2023 Type 2 diabetes mellitus with diabetic [...] toe(s) (ICD-10 - M79.674) 12/27/2023 Pain in left toe(s) (ICD-10 - [...] vement 04/21/2024 Ingrown nail (ICD-10 - L60.0) 12/27/2023 Other 04/21/2024 Other Plan Of Treatment Pending Test Test Name Order Date 38610-APLIZVU NAIL, 6 OR MORE 06/20/2023 79550-OCGQYAU NAIL, 6 OR MORE 10/18/2023 32516-PDMYEWP NAIL, 6 OR MORE 12/27/2023 87100-DEINSYP NAIL, 6 OR MORE 04/21/2024 36752-UENDDPC NAIL, 6 OR MORE 07/30/2024 82082-Gosrbqnh Plate 04/21/2024 74512-Eryhljnn Plate 10/18/2023 43939- Debride <25 sq cm 08/17/2023 18946-BIJF SKIN LESIONS, 2 TO 4 12/27/19 24 32062-GKYA SKIN LESIONS, 2 TO 4 10/18/19 24 06285-EWOD SKIN LESIONS, 2 TO 4 06/20/20 23 54738-HINW SKIN LESIONS, 2 TO 4 07/30/20 24 32533-LGKB SKIN LESIONS, 2 TO 4 04/21/20 24 Next Appt Details Provider Name:Alphonso Chance , 10/29/2024 02:30:00 PM, [address] [facility] [address], [place], [address], Insurance Providers Payer Name Payer Address Payer Phone Subscriber Number Group Number Insured Name Patient Relationship to Insured Coverage Start Date Coverage End Date [employer] Medicare Open [address] [id number] Bernstein [id number] Deb Ruff Self - patient is the insured Medical (General) History Medical History History ICD Code CAD (Cholesterol) type II diabetes High blood pressure [place] Chicken pox
== END 2024-10-28 13:44 | disposition home or self-care (01) ==
LOC: HO.MAMMO 13:43
PROVIDERS: PCP Family Medicine; Visit Provider Family Medicine
DX: Z12.31 Encounter for screening mammogram for malignant neoplasm of breast (principal)
CPT/HCPCS: 77063; 77067

== ENCOUNTER → 2024-10-28 14:30 | Outpatient (BNV) | payer OTHER, SELFPAY | PROVIDERS: PCP Family Medicine; Visit Provider Internal Medicine | DX: Z12.31 Encounter for screening mammogram for malignant neoplasm of breast (principal) | CPT/HCPCS: 77063; 77067 ==

== ENCOUNTER 2024-12-04 15:12 | Outpatient (AMB) | payer OTHER, SELFPAY ==
--- NOTE | 2024-12-04 15:28 | MHC.PC.OV ---
Vital Signs 12/04/24 15:32 12/04/24 15:37 Height 5 ft 3 in Weight 188 lb BMI 33.3 BP 150/70 H 140/60 H Blood Pressure Location Rt brachial Rt brachial Position Sitting Sitting Respiration 16 Pulse 81 Pulse Source Pulse Oximeter Temp 99.5 F Temp Source Oral Pulse Oximetry (%) 95 Oxygen Delivery Method Room Air Intake Visit Reasons: f/u diabetes Intake Note: patient is scheduled for dm follow up Case Management Social Worker Required: No Allergies latex Allergy (Verified 12/04/24 15:30) Swelling Medication List - Last Reconciled 12/04/24 by Sherwin Champion MD alendronate 70 mg PO QWEEK 28 days atorvastatin 80 mg PO BEDTIME 90 days blood pressure monitor Automatic, Digital. Dx: I10. Daily As directed, 999 days/lifetime blood sugar diagnostic (OneTouch Verio test strips) As directed blood-glucose meter (Smart GPS BackpackTouch Verio Flex Meter) As directed, 999 days bupropion HCl 75 mg PO DAILY 30 days cetirizine 10 mg PO DAILY PRN 30 days citalopram 10 mg PO DAILY enalapril maleate 20 mg PO BID 90 days fluticasone propionate 50 mcg/actuation (Flonase Allergy Relief) 1 spray intranasal Q12H 30 days glipizide 10 mg PO BID 90 days hydrochlorothiazide 25 mg PO DAILY 90 days insulin glargine (Lantus Solostar U-100 Insulin) 10 units (0.1 mL) subcut QPM 30 days lancets (OneTouch Delica Plus Lancet) 2 times a day As directed, 90 days metformin 850 mg PO DAILY 90 days pantoprazole 20 mg PO DAILY pen needle, diabetic To treat Blood sugar, Daily As directed, 90 days Tobacco use date assessed: 08/08/24 Dental Screening Dental Screen Date: 10/15/23 HPI f/u diabetes HPI Details 74 y/o female presents to f/u diabetes. She had not been taking glipizide and was only taking metformin once daily. Last A1c 10/09/24 8.8%. Had started her on Lantus and holding glipizide. Continuing metformin once per day. A1c today worsened to 10.6%. She was unable to get her Lantus. BP today 140/60. She is on hydrochlorothizide 25mg daily, enalapril 20mg b.i.d. HPI Comments History of Present Illness Details Documentation assistance for Sherwin Champion MD, was provided by Jarrell Beltran,? Ornamental Metal Worker Apprentice on 12/04/2024 at 3:49 PM EST. I, Dr. Champion, have read, observed, and verified documentation. ?? [facility] Medical History (Updated 08/08/24 @ 16:40 by Jarrell Beltran) Diabetes Liver problem HTN (hypertension) Surgical History History of total abdominal hysterectomy Family History Father CVD (cardiovascular disease) Mother No problems noted. Social History (Updated 08/08/24 @ 15:59 by Wendy Miranda CMA) Household Members: None Household Members Other:: Patient has a Dog, 4 years ago. Both parents involved: No Caregiver staying overnight: No Housing: Apartment Are you a primary career transition specialist to a significant other at home: No Do you presently have visiting nurse or other home services: No 75 years or older and lives alone: No Alcohol intake: never Patient Tobacco Use Status: Never used Tobacco e-Cigarette/Vaping Use: Never Used Second Hand Smoke Exposure: No service: No Current occupational status: retired Current occupational exposures/hazards: No Cognitive needs: No Hearing needs: Yes (hearing aide) Vision needs: No (glasses) Questionnaire PHQ-9 Over the last 2 weeks, how often have you been bothered by any of the following problems? 3. Trouble falling or staying asleep, or sleeping too much: several days Source: Developed by Drs. Bill Whittaker, Isamar Sutherland, Scott Lopez and colleagues, with an educational ray from [employer]. Thrive Questionnaire Date Thrive assessed: 10/09/24 I am a: Patient What is your living situation today?: I have a steady place to live Within the past 12 months, did the food you bought not last and you didn't have the money to get more?: Never true Within the past 12 months, did you worry whether your food would run out before you got money to buy more?: Sometimes True Do you have trouble paying for medicines?: Yes Do you have trouble getting transportation to medical appointments?: No Do you have trouble paying your heating and electricity bill?: No Do you have trouble taking care of your child, family member or friend?: No Do you have trouble with day-to-day activities such as bathing, preparing meals, shopping, managing finances, etc.?: No Are you currently unemployed and looking for a job?: I choose not to answer this question Are you interested in more education?: No Please select the resources that you would like help with: Paying for medicine Currently or been in a relationship where the following occur: I choose not to answer THRIVE Score: 1 LESLEE-7 AMB Questionnaire LESLEE-7 Date LESLEE - 7 assessed: 09/14/22 Source: Developed by Drs. iBll Whittaker, Isamar Sutherland, Scott Lopez and colleagues, with an educational ray from [employer]. Review of Systems Const Denies chills, Denies fatigue, Denies fever(s), Denies headache(s) and Denies weakness ENT Denies dizziness and Denies headache(s) Card Denies dyspnea Resp Denies cough, Denies dyspnea, Denies wheezing and Denies other (shortness of breath) Musc Denies numbness and Denies tingling Neuro Denies dizziness, Denies headache(s), Denies numbness, Denies tingling and Denies weakness Psych Denies anxiety and Denies depression Endo Denies fatigue Aller/Immun Denies wheezing Physical exam (Primary Care) Vital Signs: Last Vital Signs Temp 99.5 F 12/04/24 15:32 Pulse 81 12/04/24 15:32 Resp 16 12/04/24 15:32 BP 140/60 H 12/04/24 15:37 Pulse Ox 95 12/04/24 15:32 Oxygen Delivery Method Room Air 12/04/24 15:32 BMI result Body Mass Index 33.3 Tobacco/Smoking Status: Tobacco use Status Tobacco use date assessed 08/08/24 12/04/24 15:36 Patient Tobacco Use Status Never used Tobacco 12/04/24 15:36 e-Cigarette/Vaping Use Never Used 12/04/24 15:36 Thrive Assessment: Date of Thrive Assessment Date Thrive assessed 10/09/24 12/04/24 15:36 Currently or been in a relationship where the following occur: I choose not to answer Const General: well developed; No acute distress Nutritional Appearance: well nourished Orientation/consciousness: patient oriented x3 [facility] Head: Yes normocephalic and Yes atraumatic Eyes General: appearance normal, both eyes and all related structures Pupils: Equal, round and reactive pupils present EOM: EOMs intact bilaterally Resp Effort & Inspection: normal respiratory effort Auscultation: clear to auscultation bilaterally Cardio Rate: regular rate Rhythm: regular rhythm Heart sounds: S1 normal heart sound present, S2 normal heart sound present, no gallops, no murmurs and no rubs Neuro General: patient oriented x3 and gait normal Cranial nerves: Yes Equal, round and reactive pupils present Psych Affect: normal affect Coding Level of Care Code Est Pt Level 3 (33249) Diagnoses Diabetes E11.9 Essential hypertension I10 Rash R21 Assessment & Plan Assessment & Plan (1) Diabetes: Code(s): E11.9 - Type 2 diabetes mellitus without complications Category: Medical Plan: A1c?now?10.6%.??Uncontrolled?diabetes.??Goal?is?less?than?7% Send?a?script?for?Lantus?at?last?visit?as?her?A1c?was?8.8%. She?says?that?the?medication?was?unavailable. ?Review of medication?files?shows?this?medication?was?send?and?verified. Will?resend?this?and?ask?medical?career services assistant?to?call?the?pharmacy?to?ensure?they?can?dispense?and?provide?teaching?needed Continue?other?medications?as?prescribed (2) Essential hypertension: Code(s): I10 - Essential (primary) hypertension Category: Medical Plan: Blood?pressure?is?too?high.??Goal?is?less?than?140/90 Increase?hydrochlorothiazide?from?12.5?mg?daily?to?25?mg?daily (3) Rash: Code(s): R21 - Rash and other nonspecific skin eruption Category: Medical Plan: Flaky/scaly?rash?on?scalp?primarily?at?hairline Trial?ketoconazole?shampoo Orders: Orders AMB Hemoglobin A1c Today E11.9 - Type 2 diabetes mellitus without complications Medications: New ketoconazole 2% 1 appl topical 2XW 14 days 120 mL 0RF Changed From hydrochlorothiazide 12.5 mg PO DAILY 90 days 90 tabs 3RF To hydrochlorothiazide 25 mg PO DAILY 90 days 90 tabs 3RF From pen needle, diabetic (BD Ultra-Fine Micro Pen Needle) To treat Blood sugar, Daily As directed, 90 days 100 ea 3RF E11.9 - Type 2 diabetes mellitus without complications To pen needle, diabetic To treat Blood sugar, Daily As directed, 90 days 100 ea 3RF E11.9 - Type 2 diabetes mellitus without complications Refilled insulin glargine (Lantus Solostar U-100 Insulin) 10 units (0.1 mL) subcut QPM 30 days 3 mL 3RF
[2024-12-04 15:32] VITALS: BP 150/70; PULSE 81; RESP 16; TEMP 37.5; O2SAT 95; BMI 33.3
[2024-12-04 15:37] VITALS: BP 140/60
--- OUTSIDE RECORDS SUMMARY | 2024-12-04 17:37 | XMS_ITS | Encounter Summary ---
Author Organization [facility] Address [address] [place] [address] Care Team Providers Care Strap Maker Name Role Phone Unavailable Primary Care Provider Unavailabl e Encounter Details Date Type Department Care Team (Late st Contact Info) Description 10/13/2022 Lab Requisition [facility] [address] [place] [id number] John Martin MD [address] [place] [id number] Encounter for preprocedural laboratory examination Social [...]
--- OUTSIDE RECORDS SUMMARY | 2024-12-04 17:37 | XMS_ITS | Clinical Summary ---
Author Organization [facility] Address [address] [place] [address] Care Team Providers Care Anaesthesiologist Name Role Phone Unavailable Primary Care Provider [...] - 2023-2 5 season) 2024 Influenza Vaccine (Season Ended) 2025 RSV Immunization Adult Patie nts (1 - 1-dose 75+ series) 2027 HIB [...] age to complete this topic Meningococcal B Vaccine Aged Out No l onger eligible based on patient's age to complete this topic RSV Immunization Patients Un matthew 20 months Aged Out No longer eligible b ased on patient's age to complete this topic Varicella Vaccines Aged Out No longer eligible based on patient's age to complete this topic
--- OUTSIDE RECORDS SUMMARY | 2024-12-04 17:37 | XMS_ITS ---
Author Organization [facility] Address [address] [place] [address] Care Team Providers Care Property Controller Name Role Phone Sherwin Champion MD Primary Care Provider Alphonso Richter Unavailable [phone] Allergies Allergen (clinical drug ingredient) Drug/Non Drug [...] Ordered Date Performed Result Body Sit e 35804-USQMWPI NAIL, 6 OR MORE 07/30/2024 N/A 36763-EKYR SKIN LESIONS, 2 TO 4 07/30/2024 N/A Encounters Encounter Location Date Provider Diagnosis [facility] [place] [address] [place] [id number] 07/30/2024 Alphonso Chance Type 2 diabetes mellitus [...] days Pending Test Test Name Order Date [id number] NAIL, 6 OR MORE 07/30/2024 35308-UWEW SKIN LESIONS, 2 TO 4 07/30/20 24 Next Appt Details Follow Up: prn, Reason: Provider Name:Alphonso Chance , 01/28/2025 02:30:00 PM, [address] [facility], [address], [place], [address], Procedure Notes * Category Sub-Category Detail Notes [...] use of a nail nipper and/or dremel-type grinder and honer operator automatic, to a more viable healthy nail plate [...] to maintain effectiveness in symptomatic relief - 67809 Keratoma Treatment Parring or Cutting o f Benign Hyperkeratotic Lesion(s) (-56) 2-4 Lesions - The Benign hyperkeratotic lesions, ( 2) in total, locations as stated and described in exam, were pared, and/or cut utilizing a sterile 15 blade, tissue nippers, and/or power dremel instrumentation - 57495, Q8 Progress Notes * Tamy SINGLETARY: (74 yo F)Acc No.[id number]:07/30/2024 Progress Note Patient:?Alicia SINGLETARY Provider:?Alphonso Chance DPM :1950???Age:74 Y???Sex:Female D ate:07/30/2024 Address:[address] [place] [address], [facility] , [place], [id number] Pcp:Sherwin Champion MD Subjective: * Chief Complaints: [...] management (4)??? Plan: * Treatment: 2.?Tinea unguium?Procedure: 95218-ESUGYGY NAIL, 6 OR MORE 3.?Tinea pedis of [...] use of a nail nipper and/or dremel-type grinder and honer operator automatic, to a more viable healthy nail plate [...] to maintain effectiveness in symptomatic relief - 48241.?Keratoma Treatment:?Parring or Cutting of Benign Hyperkeratotic Lesion(s)?(-56) 2-4 Lesions - The Benign hyperkeratotic lesions, ( 2) in total, locations as stated and described in exam, were pared, and/or cut utilizing a sterile 15 blade, tissue nippers, and/or power dremel instrumentation - 53321, Q8.? * Procedure Codes:?20046 DEBRI DE NAIL, 6 OR MORE, Modifiers: XS 25119 TRIM SKIN LESIONS, 2 TO 4, Modifiers: [...] DPM Date:?2023 Generated for Chelsea grace/Luis Eduardo/Rejiitting on:?12/04/2024 05:37 PM EDT History and Physical Notes * HPI (History [...]
--- OUTSIDE RECORDS SUMMARY | 2024-12-04 17:37 | XMS_ITS ---
Author Organization [facility] luis carlos [place] Address [address] [place] [address] Care Team Providers Care Fan Mail Editor Name Role Phone Sherwin Champion MD Primary Care Provider Alphonso Richter Unavailable [phone] Allergies Allergen (clinical drug ingredient) Drug/Non Drug [...] tablet Orall y Once a day Active Simvastatin 40 MG 1 tablet in the evening Orally Once a day Active Ciclopirox Olamine 0.77 % 1 application Externally Twice a day to skin of feet including between the toes for 30 days Active hydroCHLOROthiazide 12.5 MG 1 capsule in the morning Orally Once a day Active metFORMIN HCl 850 MG 1 tablet with a grant l Orally Once a day Active Citalopram Hydrobromide 10 MG 1 tablet O rally Once a day for 30 day(s) 05/03/2023 Active Dorzolamide HCl-Timolol Mal 22.3-6.8 MG/ML 1 drop into affected eye Ophthalmic Twice a day 05/03/2023 Active Fluticasone Propionate 50 MCG/ACT 1 spray in each nostril Nasally Once a day Active glipiZIDE 10 MG 1 tablet 30 minutes before breakfast Orally Once a day Active Enalapril Maleate 20 MG 1 tablet Orally Once a day Active Alendronate Sodium [...] date) Never Smoker NA - NA Tobacco use other than smoking: Question Answer Notes Are you an other tobacco user? No Tobacco Control (Standard) Question Answer Notes Tobacco use: Nonsmoker Additional Findings: Tobacco non-user Current no nsmoker AUDIT-C (Standard) Question Answer Notes Did you have a drink containing alcohol in the p ast year? No Points 0 Interpretation Negative Vital Signs Height 5ft 4in in 10/29/2024 Weight 180 lbs 10/29/2024 BMI 30.89 kg/m2 10/29/2024 Blood pressure systolic 120 mm Hg 10/30/19 25 Blood pressure diastolic 80 mm Hg 025 Procedures Procedure Date Ordered Date Performed Result Body Sit e 03245-KKIBUEM NAIL, 6 OR MORE 10/29/2024 N/A 56458-XXAJ SKIN LESIONS, 2 TO 4 10/29/2024 N/A Encounters Encounter Location Date Provider Diagnosis [facility] [address] [address] 10/29/2024 Alphonso Chance Type 2 diabetes mellitus with diabetic peripheral angiopathy without gangrene E11.51 ; Tinea unguium B35.1 ; Pain in right toe(s) M79.674 ; Pain in left toe(s) M79.675 and Tinea pedis of both feet B35.3 Assessments Encounter Date Diagnosis (ICD Code) Assessment Notes Treatment Notes Treatment Clinical Notes Section Notes 10/29/2024 Type 2 diabetes mellitus with diabetic peripheral angiopathy without gangrene (ICD-10 - E11.51) Q7(A), Q8(2B), Q9(1B,2C) 10/29/2024 Tinea unguium (ICD-10 - B35.1) 10/29/2024 Pain in right toe(s) (ICD-10 - M79.674) 10/29/2024 Pain in left toe(s) (ICD-10 - M79.675) 10/29/2024 Tinea pedis of both feet (ICD-10 - B35.3) Plan Of Treatment Pending Test Test Name Order Date 35420-TCQVDJS NAIL, 6 OR MORE 10/29/2024 90681-YAFD SKIN LESIONS, 2 TO 4 10/30/19 25 Next Appt Details Follow Up: prn, Reason: Provider Name:Alphonso Chance , 01/28/2025 02:30:00 PM, [address] [facility], [address], [place], [address], Procedure Notes * Category Sub-Category Detail Notes Debride Nail 6-10 Nail debridement Due to the cl inical pathology outlined in the exam findings, performance of this nail treatment is medically necessary as its management by an unskilled/untrained nonprofessional would put this patients foot and overall health at risk. Therefore, debridement to affected nail(s), as described in exam ( TA, T1, T2, T3, T4, T5, T6, T7, T8, T9 ), was performed exclusively by the physician of record to reduce/remove overall nail length, girth, thickness, subungual debris, and necrotic tissue, by manual and/or electrical means through the use of a nail nipper and/or dremel-type carbon grinder, to a more viable healthy nail [...] to maintain effectiveness in symptomatic relief - Keratoma Treatment Parring or Cutting o f Benign Hyperkeratotic Lesion(s) (-56) 2-4 Lesions - Due to the at risk nature of the patients medical condition as documented in the exam findings, performance of this keratoderma treatment is medically necessary as its management by an unskilled/untrained nonprofessional would put this patients foot and overall health at risk. Therefore, the benign hyperkeratotic lesions, ( 4 ) in total, locations as stated and described in the exam ( SUB MTH (s), 5, B/L, Plantar, Heel(s) , B/L ), were pared, and/or cut utilizing a sterile 15 blade, tissue nippers, and/or power dremel instrumentation by the physician of record - 86118, Q8 Progress Notes * Kath SINGLETARYB: (74 yo F)Acc No.[id number]:10/29/2024 Progress Note Patient:?Alicia SINGLETARY Provider:?Alphonso Chance DPM :1950???Age:74 Y???Sex:Female D ate:10/29/2024 Address:[address] [place], [place] [id number] Pcp:Sherwin Champion MD Subjective: * Chief Complaints: * ???At Risk FootcarePainful N ail(s) aggravated by shoes and causing difficulty standing/walkingSkin Problem * HPI: ???At Risk footcare:?Pt States Last PCP Visit:?Date?10/02/2024 ?Misc?States just learned will become a great grandmother soon.?Skin problems:?Treatments:?Medication (Ciclopirox Olamine 0.77 Cream), states adherence to recommended treatment application.? * ROS:?General/Constitutional:?Nausea?denies.?Vomiting?denies.?Hunger Thirst?denies.?Loss appetite?denies.?Chills?denies.?Fatigue?denies.?Fever?denies.?Night Sweats?denies.?Unexplained weight loss?denies.?Unexplained weight gain?denies.?HEENTM:?Dentures?denies.?Dizziness?denies.?Glasses/contacts?admits.?Retinopathy?den ies.?Blurred/double vision?denies.?TMJ?denies.?Discharge/drainage?denies.?Implants?denies.?Sore throat?denies.?Dental implants?denies.?Hard of hearing ?admits.?Difficulty chewing/swallowing/speaking?denies.?Nose bleeds?denies.?Sore mouth?denies.?Respiratory:?On O xygen?denies.?Pneumonia/pleurisy?denies.?Bronchitis?denies.?Emphysema?denies.?Co ughing?denies.?Cough blood?denies.?Shortness of breath?denies.?Wheezing?denies.?Cardiovascular:?Pacemaker?denies.?MVP?denies.?WPW?denies.?CHF?denies.?Heart attack?denies.?Septal defect?denies.?Rapid beat?denies.?Chest pain ?denies.?Atrial Fib.?denies.?Murmur/Palpitations?denies.?Gastrointestinal:?Hemorrhoids?denies.?Stomach/Abdominal pain?denies.?Dark blood stool?denies.?Irritable bowel ?denies.?Constipation?denies.?Diarrhea?denies.?Hematology:?Swelling?denies.?Clots?denies.?Varicose Veins?admits.?Bruising?denies.?Bleeding problem?denies.?Genitourinary:?Blood urine?denies.?Frequent/Painfu/urination/bladder control?denies.?Kidney stones?denies.?Infection (UTI)?denies.?Nephropathy?denies.?sex trans dis (STD)?denies.?Prostate?denies.?Musculoskeletal:?Hammertoes?admits.?Bunions?denies.?Back Pain?admits.?Muscle Cramps/ Resting?denies.?Muscle cramps / walking?denies.?Generalized aches and pains?denies.?Weakness?denies.?Integ.:?Alvarado?denies.?Scars?denies.?Corns/calluses?admits.?Ingrown nails?admits.?Painful nails?admits.?Open Sores?denies.?Rashes?denies.?Neurologic:?Difficulty sleeping?denies.?Brain disorder?denies.?Numbness?denies.?Balance t rouble?denies.?Confusion?denies.?Fainting/blackouts?denies.?Tingling?admits.?Colin mors?denies.? * Medical History:? * Surgical History:?No Surgica l History documented. * Hospitalization/Major Diagno stic Procedure:?No Hospitalization History. * Family History:?Mother: dece ased.?Father: , heart attack.?Spouse: .? * Social History:?Tobacco Use:?Tobacco use other than smoking?Are you an other tobacco user??No ?Tobacco Control (Standard)?Tobacco use:?Nonsmoker ?Additional Findings: Tobacco non-user?Current nonsmoker ???Drugs/Alcohol:?Drugs?Have you used drugs other than those for medical reasons in the past 12 months??No ???Miscellaneous:?Caffeine: yes. ?Children: yes, 3. ?Exercise: no. ?Marital status: . ???Drug/Alcohol:?AUDIT-C (Standard)?Did you have a drink containing alcohol in the past year??No ?Points?0 ?Interpretation?Negative * Medications:?TakingAlendrona te Sodium 70 MG Tablet [...] in the evening Orally Once a day Ciclopirox Olamine 0.77 % Cream 1 application Externally Twice a day to skin of feet including between the toes Medication List reviewed and reconciled with the [...] in the evening Orally Once a day Taking Ciclopirox Olamine 0.77 % Cream 1 application Externally Twice a day to skin of feet including between the toes Medication List reviewed and reconciled with the patient * Allergies:?Latex: swelling, itchingyes[Allergies Verified] Objective: * Vitals:?Ht: 5ft 4in, Wt:180, BMI:30.89, Shoe size: 8.5, BP:120/80mm Hg, BS: not taken, Ht-cm: 162.56 cm, Wt-k.65 kg. * ???Past Orders: ???Lab:HEMOGLOBIN A1C (GLYCO HEMOGLOBIN) (Order Date - 10/18/2023) (Collection Date & Time - 10/18/2023 01:42 PM) ? Value Reference Range ?HEMOGLOBIN A1C % (HH) 7 * Examination: ???Ophthalmology Referral: ?DIABETES EYE EXAM?Procedure Performed:?Yes ?Date of Exam Performed?10/08/2024 ?Diabetic Retinopathy Screening:?Yes ?Retinal Screening Performed:?Yes ?Findings of Diabetic Eye Exam:?no retinopathy?Vascular: ?DP PULSES (B):?1/4, B/L.?PT PULSES (B):? 0/4, B/L.?CAPILLARY FILL TIME:? delayed, all digits, B/L.?TROPHIC CONDITION-TEXTURE/ELASTICITY/TURGOR/HAIR GROWTH (B):? decreased,?with sparse to absent hair growth, B/L.?TEMPERTURE GRADIENT (C):? decreased, cool to cool, proximal to distal, B/L.?PIGMENTATION:?mottled, B/L.?EDEMA (C):?absent, B/L.?CLAUDICATION (C):?denies, B/L.?REST PAIN:?denies, B/L.?Nails: ?NAILS are:?Elongated, overgrown, dystrophic, lytic, greater than 3mm thick, discolored and friable with crumbly malodorous subungual debris, with pain on palpation , TA, T1, T2, T3, T4, T5, T6, T7, T8, T9.?Dermatologic: ?SKIN FINDINGS:?Skin exam reveals Keratotic lesion(s) located at , SUB MTH (s), 5, B/L, Plantar, Heel(s) , B/L , Skin shows approximately 60-70 percent LESS, sign(s) of, erythema, scaling, in a moccasin fashion, no fissure(s) present, B/L.? Assessment: * Assessment: 1.?Type 2 diabetes mellitus with diabetic peripheral angiopathy without gangrene - E11.51 (Primary)???Notes :Q7(A), Q8(2B), Q9(1B,2C)???2.?Tinea unguium - B35.1???3.?Pain in right toe(s) - M79.674???4.?Pain in left toe(s) - M79.675???5.?Tinea pedis of both feet - B35.3???Specify :Acute problem, Stable Response to treatment - Improvement??? Plan: * Treatment: 2.?Tinea unguium?Procedure: 51966-CJEUXSM NAIL, 6 OR MORE * Procedures:?Debride Nail 6-10:?Nail debridement?Due to the clinical pathology outlined in the exam findings, performance of this nail treatment is medically necessary as its management by an unskilled/untrained nonprofessional would put this patients foot and overall health at risk. Therefore, debridement to affected nail(s), as described in exam (?TA, T1, T2, T3, T4, T5, T6, T7, T8, T9?), was performed exclusively by the physician of record to reduce/remove overall nail length, girth, thickness, subungual debris, and necrotic tissue, by manual and/or electrical means through the use of a nail nipper and/or dremel-type carbon grinder, to a more viable healthy nail plate or bed tissue 6- 10 nails in total. Silver nitrate was used for any petechial bleeding as necessary. Definitive antifungal treatment options, both pharmaceutical and surgical, have been reviewed and discussed with the patient. The patient solely prefers the use of intermittent/as needed professional debridement services for their nail condition and understands the need for additional periodic treatments to maintain effectiveness in symptomatic relief - 33463.?Keratoma Treatment:?Parring or Cutting of Benign Hyperkeratotic Lesion(s)?(-56) 2-4 Lesions - Due to the at risk nature of the patients medical condition as documented in the exam findings, performance of this keratoderma treatment is medically necessary as its management by an unskilled/untrained nonprofessional would put this patients foot and overall health at risk. Therefore, the benign hyperkeratotic lesions, ( 4 ) in total, locations as stated and described in the exam (?SUB MTH (s),?5,?B/L,?Plantar,?Heel(s)?,?B/L?), were pared, and/or cut utilizing a sterile 15 blade, tissue nippers, and/or power dremel instrumentation by the physician of record - 83920, Q8.? * Procedure Codes:?47180 DEBRI DE NAIL, 6 OR MORE, Modifiers: XS 46716 TRIM SKIN LESIONS, 2 TO 4, Modifiers: XS , Q8 * Preventive Medicine:? ??Counseling:?Discussion:?-12: Office or other outpatient visit for the evaluation and management of an established patient, which required a medically appropriate history and/or examination and STRAIGHTFORWARD level of MEDICAL DECISION MAKING, 1 SELF-LIMITED OR MINOR PROBLEM, MINIMAL- NO AMOUNT/COMPLEXITY OF DATA TO BE REVIEWED/ANALYZED, AND MINIMAL RISK OF COMPLICATION/MORBIDITY. The visit on the day of the [...] encouraged the patient to call the office.?Tinea Pedis:?Given recent successful results to treatment, The patient is to cont the rx cream as directed.? ??Screening/Special Tests:?Fall Risk?Screening:?No falls in the past year ?FALLS: Screening for Future Fall Risk?Have you had any falls with injury in the past year??No * Follow Up:?prn * Images: * Sign off status: Completed true * Provider:?Alphonso Chance DPM Date:?2024 Generated for Chelsea grace/Luis Eduardo/Mushtaq on:?12/04/2024 05:37 PM EDT History and Physical Notes * HPI (History of Present Illness) Category Sub-Category Detail Notes Category Not es Skin problems Treatments: Medication (Cicl opirox Olamine 0.77 Cream), states adherence to recommended treatment application At Risk footcare Pt States Last PCP Visit: Date: 10/02/2024 [facility] States just learned will become a great grandmother soon Examination Category Sub-Category Detail Notes Category Not es Dermatologic SKIN FINDINGS: Skin exam reveal s Keratotic lesion(s) located at , SUB MTH (s), 5, B/L, Plantar, Heel(s) , B/L , Skin shows approximately 60-70 percent LESS, sign(s) of, erythema, scaling, in a moccasin fashion, no fissure(s) present, B/L Ophthalmology Referral DIABETES EYE EXAM Procedu re Performed:: Yes ?Date of Exam Performed: 10/08/2024 Diabetic Retinopathy Screening:: Yes Retinal Screening Performed:: Yes Findings of Diabetic Eye Exam:: no retin opathy Vascular DP PULSES (B): 1/4, B/L PT [...] subungual debris, with pain on palpation , TA, T1, T2, T3, T4, T5, T6, T7, T8, T9
--- OUTSIDE RECORDS SUMMARY | 2024-12-04 17:37 | XMS_ITS ---
Author Organization [facility] [place] Address [address] [place] [address] Care Team Providers Care Transplant Rn Name Role Phone Sherwin Champion MD Primary Care Provider Alphonso Richter Unavailable [phone] Allergies Allergen (clinical drug ingredient) Drug/Non Drug [...] Ordered Date Performed Result Body Sit e 97740-JLPQYCM NAIL, 6 OR MORE 04/21/2024 N/A 82742-Jqufxpgb Plate 04/21/2024 N/A 74449-TFOU SKIN LESIONS, 2 TO 4 04/21/2024 N/A Encounters Encounter Location Date Provider Diagnosis [facility] [address] [address] 04/21/2024 Alphonso Chance Type 2 diabetes mellitus [...] Treatment Pending Test Test Name Order Date 02174-BJHRJAZ NAIL, 6 OR MORE 04/21/2024 74351-Dzsfuylk Plate 04/21/2024 27091-NNZX SKIN LESIONS, 2 TO 4 04/21/20 24 Next Appt Details Follow Up: 2 Months, Reason: Provider Name:Alphonso Chance , 01/28/2025 02:30:00 PM, [address] [facility], [address], [place], [address], Procedure Notes * Category Sub-Category Detail Notes [...] Motrin was recommended for pain or discomfort (00305) , DIABETES: Pt was advised as to [...] use of a nail nipper and/or dremel-type head wood grinder, to a more viable healthy nail plate or bed tissue 6-10. Silver nitrate used for any petechial bleeding as necessary. Definitive antifungal treatment options have been reviewed and discussed with the patient. The patient chooses, no pharmaceutical tx (17791) Keratoma Treatment Parring or Cutting o f Benign Hyperkeratotic Lesion(s) 50470 ( 2-4 Lesions ) - The Benign hyperkeratotic lesions, as described above were pared, and/or cut utilizing a sterile 15 blade, tissue nippers, and/or dremel , Q9 Progress Notes * Kath SINGLETARYB: (74 yo F)Acc No.[id number]:04/21/2024 Progress Note Patient:?BRYSONREGISAlicia SANDERS Provider:?Alphonso Chance DPM :1950???Age:74 Y???Sex:Female D ate:04/21/2024 Address:[address] [place], [place] [id number] Pcp:Sherwin Champion MD Subjective: * Chief Complaints: [...] - L60.0??? Plan: * Treatment: 2.?Tinea unguium?Procedure: 06912-QXIGQJO NAIL, 6 OR MORE 3.?Ingrown nail?Procedure: 95440-Xukygqdh Plate * Procedures:?Debride Nail 6-10:?Nail debridement?Performance of this nail treatment by a nonprofessional would put this patients foot and overall health at risk. Therefore, nail debridement was performed extensively to reduce/remove overall nail length, girth, thickness, subungual debris, and necrotic tissue, by manual and/or electrical means through the use of a nail nipper and/or dremel-type head wood grinder, to a more viable healthy nail plate or bed tissue 6-10. Silver nitrate used for any petechial bleeding as necessary. Definitive antifungal treatment options have been reviewed and discussed with the patient. The patient chooses, no pharmaceutical tx (81802).?Keratoma Treatment:?Parring or Cutting of Benign Hyperkeratotic Lesion(s)?68858 ( 2-4 Lesions ) - The Benign [...] Motrin was recommended for pain or discomfort (68360) , DIABETES: Pt was advised as to the risk of delayed or nonhealing due to diabetes. Pt is to call the office with any questions, concerns, or complications.? * Procedure Codes:?15211 Avuls ion Plate, Modifiers: XS , [id number] DEBRIDE NAIL, 6 OR MORE, Modifiers: XS 15365 TRIM SKIN LESIONS, 2 TO 4, Modifiers: [...] DPM Date:?2023 Generated for Chelsea grace/Luis Eduardo/Mushtaq on:?12/04/2024 05:36 PM EDT History and Physical Notes * [...] located at , Heel(s) , B/L Orthopedic FOOTWEAR EVALUATION: good condit ion, exhibit proper fit and accommodation for pedal [...]
--- OUTSIDE RECORDS SUMMARY | 2024-12-04 17:37 | XMS_ITS | Patient Health Record ---
Author Organization [facility] luis carlos [place] Address [address] [place] [address] Care Team Providers Care Gore Seamer Name Role Phone Sherwin Champion MD Primary Care Provider Alphonso Richter Unavailable [phone] Allergies Allergen (clinical drug ingredient) Drug/Non Drug Allergy documented on EMR Reaction Allergy Type Onset Date Status Latex Latex swelling, itching Allergy Active Reason For Referral No Information Medications Medication SIG (Take, Route, Frequency, Duration) Notes Start Date End Date Status Citalopram Hydrobromide 10 MG 1 tablet O [...] water Orally for 30 day(s) 05/03/2023 Active Ciclopirox Olamine 0.77 % 1 application Externally Twice a day to skin of feet including between the toes for 30 days Active Atorvastatin Calcium 40 MG 1 tablet Oral ly Once a day for 30 day(s) 05/03/2023 Active Fluticasone Propionate 50 MCG/ACT 1 [...] ast year? No Points 0 Interpretation Negative Problems Problem Type SNOMED Code ICD Code Onset Dates Problem Status W/U Status Risk Notes Problem Acquired hammer toe of right foot (3428264950965 105) Other hammer toe(s) (acquired), right foot (M20.41) Active confirmed Response to treatment,I mprovement Problem Type 2 diabetes mellitus with peripheral angiopathy (540825891) Type 2 diabetes mellitus with diabetic peripheral angiopathy without gangrene (E11.51) Active confirmed Q7(A), Q8(2B), Q9(1B,2C) Problem Acquired hammer toe of left foot (9910490866046 103) Other hammer toe(s) (acquired), left foot (M20.42) Active confirmed Response to treatment,I mprovement Vital Signs Blood pressure diastolic 80 mm Hg 10/29/2024 Height 5ft 4in in 10/29/2024 Blood pressure systolic 120 mm Hg 10/29/2024 Weight 180 lbs 10/29/2024 BMI 30.89 kg/m2 10/29/2024 Procedures Procedure Date Ordered Date Performed Result Body Sit e 26404-RHWDEXN NAIL, 6 OR MORE 12/27/2023 N/A 28261-PBXL SKIN LESIONS, 2 TO 4 12/27/2023 N/A 58313-MEYAJDY NAIL, 6 OR MORE 04/21/2024 N/A 10186-Nuassemh Plate 04/21/2024 N/A 00401-TJPM SKIN LESIONS, 2 TO 4 04/21/2024 N/A 71196-PRCNBRA NAIL, 6 OR MORE 07/30/2024 N/A 47484-ZAAM SKIN LESIONS, 2 TO 4 07/30/2024 N/A 36609-KZYVJGH NAIL, 6 OR MORE 10/29/2024 N/A 31008-BOJC SKIN LESIONS, 2 TO 4 10/29/2024 N/A Encounters Encounter Location Date Provider Diagnosis [address] [address] 12/27/2023 Alphonso Chance Type 2 diabetes mellitus with diabetic peripheral angiopathy without gangrene E11.51 ; Tinea unguium B35.1 ; Pain in right toe(s) M79.674 and Pain in left toe(s) M79.[address] [address] 04/21/2024 Alphonso Chance Type 2 diabetes mellitus with diabetic peripheral angiopathy without gangrene E11.51 ; Tinea unguium B35.1 ; Pain in right toe(s) M79.674 ; Pain in left toe(s) M79.675 ; Other hammer toe(s) (acquired), right foot M20.41 ; Other hammer toe(s) (acquired), left foot M20.42 and Ingrown nail L60.[address] [address] 07/30/2024 Alphonso Chance Type 2 diabetes mellitus with diabetic peripheral angiopathy without gangrene E11.51 ; Tinea unguium B35.1 ; Pain in right toe(s) M79.674 ; Pain in left toe(s) M79.675 and Tinea pedis of both feet B35.[address] [address] 10/29/2024 Alphonso Chance Type 2 diabetes mellitus with diabetic peripheral angiopathy without gangrene E11.51 ; Tinea unguium B35.1 ; Pain in right toe(s) M79.674 ; Pain in left toe(s) M79.675 and Tinea pedis of both feet B35.[address] [address] 01/01/2024 Alphonso Chance [address] [address] 01/11/2024 Alphonso Chance [facility] [place] [address] [facility] [address] [place] [address] 02/29/2024 Alphonsotiffanie Chance [facility] [address] [address] 03/24/2024 Alphonso Chance Assessments Encounter Date Diagnosis [...] Q9(1B,2C) 07/30/2024 Tinea unguium (ICD-10 - B35.1) 10/29/2024 Type 2 diabetes mellitus with diabetic peripheral angiopathy without gangrene (ICD-10 - E11.51) Q7(A), Q8(2B), Q9(1B,2C) 10/29/2024 Tinea unguium (ICD-10 - B35.1) 07/30/2024 Pain in right toe(s) (ICD-10 - M79.674) 10/29/2024 Pain in right toe(s) (ICD-10 - M79.674) 04/21/2024 Pain in right toe(s) (ICD-10 - M79.674) 12/27/2023 Pain in right toe(s) (ICD-10 - M79.674) 12/27/2023 Pain in left toe(s) (ICD-10 - M79.675) 07/30/2024 Pain in left toe(s) (ICD-10 - M79.675) 04/21/2024 Pain in left toe(s) (ICD-10 - M79.675) 10/29/2024 Pain in left toe(s) (ICD-10 - M79.675) 07/30/2024 Tinea pedis of both feet (ICD-10 - B35.3) 10/29/2024 Tinea pedis of both feet (ICD-10 - B35.3) 04/21/2024 Other hammer toe(s) (acquired), right foot (ICD-10 - M20.41) Response to treatment,Impro vement 04/21/2024 Other hammer toe(s) (acquired), left foot (ICD-10 - M20.42) Response to treatment,Impro vement 04/21/2024 Ingrown nail (ICD-10 - L60.0) 12/27/2023 Other 04/21/2024 Other Plan Of Treatment Pending Test Test Name Order Date 29369-PNZCWLA NAIL, 6 OR MORE 06/20/2023 89507-PIIDSYT NAIL, 6 OR MORE 10/18/2023 06880-EUFWYMK NAIL, 6 OR MORE 12/27/2023 85937-LWNKZDM NAIL, 6 OR MORE 04/21/2024 37161-VRSATGM NAIL, 6 OR MORE 07/30/2024 72867-JWGZBIE NAIL, 6 OR MORE 10/29/2024 48363-Mpktksqj Plate 04/21/2024 67850-Kwxosqei Plate 10/18/2023 09346- Debride <25 sq cm 08/17/2023 41384-OTWP SKIN LESIONS, 2 TO 4 12/27/19 24 92075-DGHX SKIN LESIONS, 2 TO 4 10/18/19 24 60514-EUZO SKIN LESIONS, 2 TO 4 06/20/20 23 44567-SMGE SKIN LESIONS, 2 TO 4 10/30/19 25 51552-WOWO SKIN LESIONS, 2 TO 4 07/30/20 24 24913-CDLK SKIN LESIONS, 2 TO 4 04/21/20 24 Next Appt Details Provider Name:Alphonso Chance , 01/28/2025 02:30:00 PM, [address] [facility], [address], [place], [address], Insurance Providers Payer Name Payer Address Payer Phone Subscriber Number Group Number Insured Name Patient Relationship to Insured Coverage Start Date Coverage End Date [employer] Medicare Open [address] [place] [address] [id number] Deb Ruff Self - patient is the insured Medical (General) History Medical History History ICD Code CAD (Cholesterol) type II diabetes High blood pressure [place] Chicken pox
== END 2024-12-04 16:02 | disposition home or self-care (01) ==
LOC: HO.HMCFM 15:13
PROVIDERS: PCP Family Medicine; Visit Provider Family Medicine
DX: E11.9 Type 2 diabetes mellitus without complications (principal); I10 Essential (primary) hypertension; R21 Rash and other nonspecific skin eruption

== ENCOUNTER → 2024-12-04 15:12 | Outpatient (BNVA) | payer OTHER, SELFPAY | PROVIDERS: PCP Family Medicine; Visit Provider Family Medicine | DX: E11.9 Type 2 diabetes mellitus without complications (principal); I10 Essential (primary) hypertension; R21 Rash and other nonspecific skin eruption; Z79.899 Other long term (current) drug therapy | CPT/HCPCS: 83036 ==

== ENCOUNTER → 2025-01-08 14:30 | Outpatient (BNVA) | payer OTHER, SELFPAY | PROVIDERS: PCP Family Medicine ==

== ENCOUNTER 2025-04-23 10:48 | Outpatient (AMB) | payer OTHER, SELFPAY ==
--- NOTE | 2025-04-23 10:51 | MHC.PC.OV ---
Vital Signs 04/23/25 11:04 Height 5 ft 3 in Weight 190 lb 6 oz BMI 33.7 BP 139/64 Blood Pressure Location Lt brachial Position Sitting Respiration 16 Pulse 81 Pulse Source Pulse Oximeter Temp 99.3 F Temp Source Oral Pulse Oximetry (%) 99 Oxygen Delivery Method Room Air Intake Visit Reasons: [facility] HDF / Discharge Rehab Mylene Ashlye Intake Note: patient here for HDF/ Discharge rehab Mylene ashley [employer] Machine Operator Required: No Is last menstrual period known: No Post menopausal: No Patient : No Allergies latex Allergy (Verified 04/23/25 10:55) Swelling Medication List - Last Reconciled 04/23/25 by Sherwin Champion MD acetaminophen (Tylenol Extra Strength) 500 mg PO Q6H PRN alendronate 70 mg PO QWEEK 28 days artifi.tears(hypromellose)(PF) 1.7% 1 drp ophthalmic (eye) Q4-6H PRN aspirin (Adult Low Dose Aspirin) 81 mg PO DAILY 90 days atorvastatin 80 mg PO BEDTIME 90 days blood pressure monitor Automatic, Digital. Dx: I10. Daily As directed, 999 days/lifetime blood sugar diagnostic ([employer] Verio test strips) As directed blood-glucose meter ([employer] Verio Flex Meter) As directed, 999 days bupropion HCl 75 mg PO DAILY 30 days cetirizine 10 mg PO DAILY PRN 30 days citalopram 10 mg PO DAILY clopidogrel 75 mg PO DAILY 30 days enalapril maleate 20 mg PO BID 90 days fluticasone propionate 50 mcg/actuation (Flonase Allergy Relief) 1 spray intranasal Q12H 30 days glipizide 10 mg PO BID 90 days hydrochlorothiazide 25 mg PO DAILY 90 days insulin glargine (Lantus Solostar U-100 Insulin) 12 units (0.12 mL) subcut QPM 30 days ketoconazole 2% 1 appl topical 2XW 14 days lancets ([employer] Delica Plus Lancet) 2 times a day As directed, 90 days meclizine 25 mg PO TID PRN metformin 850 mg PO DAILY 90 days pantoprazole 20 mg PO DAILY pen needle, diabetic To treat Blood sugar, Daily As directed, 90 days Tobacco use date assessed: 04/23/25 Fall risk assessment: 2 + Falls in past year Last assessed Fall Risk: 04/23/25 Dental Screening Dental Screen Date: 04/23/25 Did you have a dental visit in the last 12 months?: Yes Did you have a dental problem in the last 6 months where you did not have access to dental care?: No Was dental information given to patient?: Patient has dentist HPI [facility] / Discharge Rehab Mylene Ashley HPI Details Patient presents for hospital discharge follow-up for CVA with left-sided weakness I do not have her discharge summary from the hospital. [facility] Medical History (Updated 04/23/25 @ 12:11 by Sherwin Champion MD) Diabetes Liver problem HTN (hypertension) Surgical History History of total abdominal hysterectomy Family History Father CVD (cardiovascular disease) Mother No problems noted. Social History (Updated 08/08/24 @ 15:59 by Wendy Miranda CMA) Household Members: None Household Members Other:: Patient has a Dog, 4 years ago. Both parents involved: No Caregiver staying overnight: No Housing: Apartment Are you a primary ambulatory care coordinator to a significant other at home: No Do you presently have visiting nurse or other home services: No 75 years or older and lives alone: No Alcohol intake: never Patient Tobacco Use Status: Never used Tobacco e-Cigarette/Vaping Use: Never Used Second Hand Smoke Exposure: No service: No Current occupational status: retired Current occupational exposures/hazards: No Cognitive needs: No Hearing needs: Yes (hearing aide) Vision needs: No (glasses) Questionnaire Thrive Questionnaire Date Thrive assessed: 10/09/24 I am a: Patient What is your living situation today?: I have a steady place to live Within the past 12 months, did the food you bought not last and you didn't have the money to get more?: Never true Within the past 12 months, did you worry whether your food would run out before you got money to buy more?: Sometimes True Do you have trouble paying for medicines?: Yes Do you have trouble getting transportation to medical appointments?: No Do you have trouble paying your heating and electricity bill?: No Do you have trouble taking care of your child, family member or friend?: No Do you have trouble with day-to-day activities such as bathing, preparing meals, shopping, managing finances, etc.?: No Are you currently unemployed and looking for a job?: I choose not to answer this question Are you interested in more education?: No Please select the resources that you would like help with: Paying for medicine Currently or been in a relationship where the following occur: I choose not to answer THRIVE Score: 1 LESLEE-7 AMB Questionnaire LESLEE-7 Date LESLEE - 7 assessed: 09/14/22 Source: Developed by Drs. Bill Whittaker, Isamar Sutherland, Scott Lopez and colleagues, with an educational ray from [employer]. Review of Systems Const Denies chills, Denies fatigue, Denies fever(s), Denies headache(s) and Reports weakness ENT Reports dizziness and Denies headache(s) Card Denies chest pain, Denies lightheadedness, Denies dyspnea and Denies other (Palpitations) Resp Denies cough, Denies dyspnea, Denies wheezing and Denies other ( shortness of breath) Musc Details: Ongoing knee pain Denies numbness and Denies tingling Neuro Details: Residual left-sided weakness and unsteady gait. Reports dizziness, Denies headache(s), Denies numbness, Denies tingling, Denies paresthesias and Reports weakness Psych Denies anxiety and Denies depression Endo Denies fatigue Aller/Immun Denies wheezing Physical exam (Primary Care) Vital Signs: Last Vital Signs Temp 99.3 F 04/23/25 11:04 Pulse 81 04/23/25 11:04 Resp 16 04/23/25 11:04 BP 139/64 04/23/25 11:04 Pulse Ox 99 04/23/25 11:04 Oxygen Delivery Method Room Air 04/23/25 11:04 BMI result Body Mass Index 33.7 Tobacco/Smoking Status: Tobacco use Status Tobacco use date assessed 04/23/25 04/23/25 11:08 Patient Tobacco Use Status Never used Tobacco 04/23/25 10:54 e-Cigarette/Vaping Use Never Used 04/23/25 10:54 Thrive Assessment: Date of Thrive Assessment Date Thrive assessed 10/09/24 04/23/25 10:54 Currently or been in a relationship where the following occur: I choose not to answer Const General: no acute distress and well developed Nutritional Appearance: well nourished Orientation/consciousness: patient oriented x3 HENMT Head: Yes normocephalic and Yes atraumatic Eyes General: appearance normal, both eyes and all related structures Pupils: Equal, round and reactive pupils present EOM: EOMs intact bilaterally Resp Effort & Inspection: normal respiratory effort Auscultation: clear to auscultation bilaterally Cardio Rate: regular rate Rhythm: regular rhythm Heart sounds: S1 normal heart sound present, S2 normal heart sound present, no gallops, no murmurs and no rubs Neuro Other: Ongoing residual left-sided weakness and unsteady gait General: patient oriented x3 Cranial nerves: Yes Equal, round and reactive pupils present Psych Affect: normal affect Coding Level of Care Code Est Pt Level 3 (36651) Diagnoses CVA (cerebral vascular accident) I63.9 Assessment & Plan Assessment & Plan (1) CVA (cerebral vascular accident): Code(s): I63.9 - Cerebral infarction, unspecified Category: Medical Plan: 74-year-old female with past medical history of hypertension, type 2 diabetes, hyperlipidemia, anxiety/depression and vertigo who presented to the ED 03/21/25 after a fall, complaining left-sided weakness. Brain imaging showed a small subacute infarct in the anterior right medulla. She was seen by Neurology and they initiated dual antiplatelet therapy with aspirin and Plavix. 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 Hospital course was complicated by a left knee effusion. She was seen by Orthopedic surgery to do not have concern for infection and suspected arthritis with plan to follow-up as an outpatient. Patient was transferred to [facility] for rehab. Outpt Neurologist: Dr Pierre [facility] Neurology Follow up w/ Neurology as recommended Ongoing residual weakness and unsteady gait. Continue walker Continue physical therapy and occupational therapy. Out of Plavix & ASA. Will refill this. Discussed with patient that she should call Neurology today to see how long she continues medications with regard to her upcoming appointment with them. Patient was supposed to follow-up with Dr. Emery but has not gotten an appointment to follow-up on knee pain. Will make a referral Orders: Referrals Neurology Referral I63.9 - Cerebral infarction, unspecified Orthopedics Referral M25.569 - Pain in unspecified knee Medications: New clopidogrel 75 mg PO DAILY 30 tabs 0RF 30 days aspirin (Adult Low Dose Aspirin) 81 mg PO DAILY 90 tabs 3RF 90 days Changed From insulin glargine (Lantus Solostar U-100 Insulin) 10 units (0.1 mL) subcut QPM 30 days 3 mL 3RF To insulin glargine (Lantus Solostar U-100 Insulin) 12 units (0.12 mL) subcut QPM 6 mL 3RF 30 days
[2025-04-23 11:04] VITALS: BP 139/64; PULSE 81; RESP 16; TEMP 37.4; O2SAT 99; BMI 33.7
--- OUTSIDE RECORDS SUMMARY | 2025-04-23 12:17 | XMS_ITS | Encounter Summary ---
Author Organization [facility] Address [address] [place] [address] Care Team Providers Care Senior Process Analyst Name Role Phone Noel Hooks MD Primary Care Provider [phone] Encounter Details Date Type Department Care Team (Late st Contact Info) Description 04/06/2025 Lab Requisition [facility] - Main Lab [address] [place] [address] Noel Hooks MD [address] [place] [address] Dysuria Social History Tobacco Use Types Packs/Day Years Used Date Smoking Tobacco: Never Assessed Comments Unknown Sex and Gender Information Value Date Recorded Sex Assigned at Not on file Legal Sex Female 4:50 AM EST Gender Identity Not on file Sexual Orientation Not on file documented as of this encounter Plan of Treatment Not on file documented as of this encounter Procedures Procedure Name Priority Date/Time Associated Diagnosis Comments URINALYSIS WITH REFLEX MICROSCOPIC Routine 04/05/2025 4:00 PM EDT Dysuria URINALYSIS WITH REFLEX MICROSCOPIC Routine 04/05/2025 4:00 PM EDT Dysuria CULTURE URINE Routine 04/05/2025 4:00 PM EDT Dysuria documented in this encounter Results * (ABNORMAL) Urinalysis with reflex microscopic (04/05/2025 4:00 PM EDT) Specific [place] Urine 1.014 1.003 - 1.030 LAB URINALYSIS - AUTOMATED METHOD 04/06/2025 12:10 PM EDT [facility] pH, Urine 6.0 5.0 - 8.0 pH LAB URINALYSIS - AUTOMATED METHOD 04/06/2025 12:10 PM [facility] Leukocytes, Urine Large(A) Negative LAB URINALYSIS - AUTOMATED METHOD 04/06/2025 12:10 PM [facility] Nitrite, Urine Negative Negative LAB URINALYSIS - AUTOMATED METHOD 04/06/2025 12:10 PM [facility] Protein, Urine 30(A) <=Trace mg/dL LAB URINALYSIS - AUTOMATED METHOD 04/06/2025 12:10 PM [facility] Glucose, Urine Negative Negative mg/dL LAB URINALYSIS - AUTOMATED METHOD 04/06/2025 12:10 PM [facility] Ketones, Urine Negative Negative mg/dL LAB URINALYSIS - AUTOMATED METHOD 04/06/2025 12:10 PM [facility] Urobilinogen, Urine 0.2 0.2 - 1.0 mg/dL LAB URINALYSIS - AUTOMATED METHOD 04/06/2025 12:10 PM [facility] Bilirubin, Urine Negative Negative LAB URINALYSIS - AUTOMATED METHOD 04/06/2025 12:10 PM [facility] Blood, Urine Small(A) Negative LAB URINALYSIS - AUTOMATED METHOD 04/06/2025 12:10 PM [facility] RBC, Urine 3.2 0 - 4 /HPF LAB URINALYSIS - AUTOMATED METHOD 04/06/2025 12:10 PM [facility] WBC, Urine 88.7(H) 0 - 4 /HPF LAB URINALYSIS - AUTOMATED METHOD 04/06/2025 12:10 PM [facility] Squamous Epithelial, Urine 9 0 - 60 /LPF LAB URINALYSIS - AUTOMATED METHOD 04/06/2025 12:10 PM [facility] Bacteria, Urine Negative Negative /HPF LAB URINALYSIS - AUTOMATED METHOD 04/06/2025 12:10 PM EDT [facility] Hyaline Casts, Urine 1.6 0 - 3 /LPF LAB URINALYSIS - AUTOMATED METHOD 04/06/2025 12:10 PM EDT [facility] Urine Urine specimen obtained by clean catch procedure / Unknown 04/05/2025 4:00 PM EDT 04/06/2025 11:55 AM EDT us Noel Hooks MD LAB URINE ORDERABLES Final Resu lt [facility] [address] [place] [address], [place] [phone] * (ABNORMAL) Culture urine (04/05/2025 4:00 PM EDT) Culture, Urine >=100,000 CFU/mL Klebsiella pneumoniae ssp pneumoniae(A) HIRAM 04/08/2025 9:37 AM EDT [facility] Comment: This is an edited result. Previous organism was Gram negative bacilli on 04/07/2025 at 0859 EDT. Urine Urine specimen obtained by clean catch procedure / Unknown 04/05/2025 4:00 PM EDT 04/06/2025 11:55 AM EDT Narrative Organism Antibiotic Method Susceptibility Klebsiella pneumoniae ssp pneumoniae Amoxicillin/Clavulanate HIRAM <=2 ug/ml: Susceptible Klebsiella pneumoniae ssp pneumoniae Ampicillin/Sulbactam HIRAM <=2 ug/ml: Susceptible Klebsiella pneumoniae ssp pneumoniae Piperacillin/Tazobactam HIRAM <=4 ug/ml: Susceptible Klebsiella pneumoniae ssp pneumoniae Cefazolin (Urine) HIRAM <=1 ug/ml: Susceptible Klebsiella pneumoniae ssp pneumoniae Cefoxitin HIRAM <=4 ug/ml: Susceptible Klebsiella pneumoniae ssp pneumoniae Ceftazidime HIRAM <=0.5 ug/ml: Susceptible Klebsiella pneumoniae ssp pneumoniae Ceftriaxone HIRAM <=0.25 ug/ml: Susceptible Klebsiella pneumoniae ssp pneumoniae Cefepime HIRAM <=0.12 ug/ml: Susceptible Klebsiella pneumoniae ssp pneumoniae Meropenem HIRAM <=0.25 ug/ml: Susceptible Klebsiella pneumoniae ssp pneumoniae Amikacin HIRAM <=1 ug/ml: Susceptible Klebsiella pneumoniae ssp pneumoniae Gentamicin HIRAM <=1 ug/ml: Susceptible Klebsiella pneumoniae ssp pneumoniae Ciprofloxacin HIRAM <=0.06 ug/ml: Susceptible Klebsiella pneumoniae ssp pneumoniae Levofloxacin HIRAM <=0.12 ug/ml: Susceptible Klebsiella pneumoniae ssp pneumoniae Nitrofurantoin HIRAM 64 ug/ml: Intermediate Klebsiella pneumoniae ssp pneumoniae Trimethoprim/Sulfamethoxazo le HIRAM <=20 ug/ml: Susceptible Noel Hooks MD LAB MICROBIOLOGY - [facility] Final Result [facility] [address] [place] [address], documented in this encounter Visit Diagnoses Diagnosis Dysuria documented in this encounter Care Teams Senior Process Analyst Relationship Specialty Start Date End Date Noel Hooks MD [address] [place] [address] PCP - General Internal Medicine 03/25/25 documented as of this encounter
--- OUTSIDE RECORDS SUMMARY | 2025-04-23 12:17 | XMS_ITS | Encounter Summary ---
Author Organization [facility] Address [id number] [place] [address] Care Team Providers Care Dragline Operator Helper Name Role Phone Noel Hooks MD Primary Care Provider [phone] Encounter Details Date Type Department Care Team (Latest Contact Info) Description 03/25/2025 Lab Requisition [facility] - Main Lab [address] [facility] [place] [address] Noel Hooks MD [address] [place] [address] Type 2 diabetes mellitus without complications (CMS/HCC V24, CMS/HCC V28); Essential (primary) hypertension; Chronic kidney disease, unspecified Social History Tobacco Use Types Packs/Day Years Used Date Smoking Tobacco: Never Assessed Comments Unknown Sex and Gender Information Value Date Recorded Sex Assigned at Not on file Legal Sex Female 4:50 AM EST Gender Identity Not on file Sexual Orientation Not on file documented as of this encounter Plan of Treatment Scheduled Orders Name Type Priority Associated Diagnoses Orde r Schedule Complete blood count Lab Routine Type 2 diabetes mellitus without complications (CMS/HCC V24, CMS/HCC V28) Essential (primary) hypertension Chronic kidney disease, unspecified Ordered: 03/25/2025 Basic metabolic panel Lab Routine Type 2 diabetes mellitus without complications (CMS/HCC V24, CMS/HCC V28) Essential (primary) hypertension Chronic kidney disease, unspecified Ordered: 03/25/2025 documented as of this encounter Visit Diagnoses Diagnosis Type 2 diabetes mellitus without complications (CMS/HCC V24, CMS/HCC V28) Essential (primary) hypertension Unspecified essential hypertension Chronic kidney disease, unspecified documented in this encounter Care Teams Dragline Operator Helper Relationship Specialty Start Date End Date Noel Hooks MD [address] [place] [address] PCP - General Internal Medicine 03/25/25 documented as of this encounter
--- OUTSIDE RECORDS SUMMARY | 2025-04-23 12:17 | XMS_ITS | Encounter Summary ---
Author Organization [facility] Address [id number] [place] [address] Care Team Providers Care Coil Connector Repairer Name Role Phone Noel Hooks MD Primary Care Provider [phone] Encounter Details Date Type Department Care Team (Latest Contact Info) Description 03/26/2025 Lab Requisition [facility] - Main Lab [address] [facility] [place] [address] Noel Hooks MD [address] [place] [address] Type 2 diabetes mellitus without [...] Procedure Name Priority Date/Time Associated Diagnosis Comments COMPLETE BLOOD COUNT Routine 03/26/2025 6:04 AM EDT Type 2 diabetes mellitus without complications (CMS/HCC V24, CMS/HCC V28) Essential (primary) hypertension Chronic kidney disease, unspecified BASIC METABOLIC PANEL Routine 03/26/2025 6:04 AM EDT Type 2 diabetes mellitus without complications (CMS/HCC V24, CMS/HCC V28) Essential (primary) hypertension Chronic kidney disease, unspecified documented in this encounter Results * (ABNORMAL) Basic metabolic panel (03/26/2025 6:04 AM EDT) Sodium 140 133 - 145 mmol/L LAB CHEMISTRY METHOD 03/26/2025 10:13 AM [facility] Potassium 4.6 3.5 - 5.5 mmol/L LAB CHEMISTRY METHOD 03/26/2025 10:13 AM [facility] Chloride 107 96 - 110 mmol/L LAB CHEMISTRY METHOD 03/26/2025 10:13 AM [facility] CO2 27 21 - 32 mmol/L LAB CHEMISTRY METHOD 03/26/2025 10:13 AM [facility] Anion Gap 6 3 - 11 LAB CHEMISTRY METHOD 03/26/2025 10:13 AM [facility] Glucose 222(H) 70 - 100 mg/dL LAB CHEMISTRY METHOD 03/26/2025 10:13 AM [facility] BUN 35(H) 5 - 25 mg/dL LAB CHEMISTRY METHOD 03/26/2025 10:13 AM [facility] Creatinine 1.39(H) 0.50 - 1.10 mg/dL LAB CHEMISTRY METHOD 03/26/2025 10:13 AM [facility] eGFR 40(L) >=60 mL/min/1. 73m2 LAB CHEMISTRY METHOD 03/26/2025 10:13 AM [facility] Comment:Calculation based on the Chronic Kidney Disease Epidemiology Collaboration (CKD-EPI) equation refit without adjustment for race. BUN/Creatinine Ratio 25.2 LAB CHEMISTRY METHOD 03/26/2025 10:13 AM [facility] Calcium 9.2 8.5 - 10.5 mg/dL LAB CHEMISTRY METHOD 03/26/2025 10:13 AM [facility] Blood Venous blood specimen / Unknown Venipuncture / Unknown 03/26/2025 6:04 AM EDT 03/26/2025 9:23 AM EDT us Noel Hooks MD LAB BLOOD ORDERABLES Final Resu lt [facility] [address] [place] [address], * (ABNORMAL) Complete blood count (03/26/2025 6:04 AM EDT) WBC 3.8(L) 4.8 - 10.8 K/mcL LAB HEMETOLOGY METHOD 03/26/2025 9:50 AM EDT [facility] RBC 3.40(L) 3.80 - 4.80 M/[facility] LAB HEMETOLOGY METHOD 03/26/2025 9:50 AM EDT [facility] Hemoglobin 10.0(L) 11.5 - 16.0 g/dL LAB HEMETOLOGY METHOD 03/26/2025 9:50 AM EDT [facility] Hematocrit 31.5(L) 35.0 - 47.0 % LAB HEMETOLOGY METHOD 03/26/2025 9:50 AM EDT [facility] MCV 91.8 79.0 - 98.0 FL LAB HEMETOLOGY METHOD 03/26/2025 9:50 AM EDT [facility] MCH 29.2 27.0 - 32.0 pcg LAB HEMETOLOGY METHOD 03/26/2025 9:50 AM EDT [facility] MCHC 31.7(L) 32.0 - 37.0 g/dL LAB HEMETOLOGY METHOD 03/26/2025 9:50 AM EDT [facility] RDW 14.1 11.0 - 15.0 % LAB HEMETOLOGY METHOD 03/26/2025 9:50 AM EDT [facility] Platelets 206 130 - 400 K/mcL LAB HEMETOLOGY METHOD 03/26/2025 9:50 AM EDT [facility] MPV 11.1(H) 7.0 - 11.0 FL LAB HEMETOLOGY METHOD 03/26/2025 9:50 AM EDT [facility] NRBC 0.0 <1.0 % LAB HEMETOLOGY METHOD 03/26/2025 9:50 AM EDT [facility] NRBC Absolute 0.00 <0.10 K/mcL LAB HEMETOLOGY METHOD 03/26/2025 9:50 AM EDT [facility] Blood Venous blood specimen / Unknown Venipuncture / Unknown 03/26/2025 6:04 AM EDT 03/26/2025 9:26 AM EDT us Noel Hooks MD LAB BLOOD ORDERABLES Final Resu lt [facility] [address] [place] [address], documented in this encounter Visit Diagnoses Diagnosis Type 2 diabetes mellitus without complications (CMS/HCC V24, CMS/HCC V28) Essential (primary) hypertension Unspecified essential hypertension Chronic kidney disease, unspecified documented in this encounter Care Teams Coil Connector Repairer Relationship Specialty Start Date End Date Noel Hooks MD [address] [place] [address] PCP - General Internal Medicine 03/25/25 documented as of this encounter
--- OUTSIDE RECORDS SUMMARY | 2025-04-23 12:17 | XMS_ITS | Clinical Summary ---
Author Organization [facility] Address [address] [place], [place] Phone Care Team Providers Care Wood Model Maker Name Role Phone Noel Hooks MD Primary Care Provider Encounters Date Type Department Care Team Description 04/06/2025 Lab Requisition [facility] Lab [address] [facility] [place] [phone] Noel Hooks MD Dysuria 04/03/2025 Lab Requisition [facility] Lab [address] [place] [phone] Noel Hooks MD Type 2 diabetes mellitus without complications (CMS/HCC V24, CMS/HCC V28); Essential (primary) hypertension; Chronic kidney disease, unspecified 04/01/2025 Lab Requisition [facility] Lab [address] [facility] [place] [phone] Noel Hooks MD Type 2 diabetes mellitus without complications (CMS/HCC V24, CMS/HCC V28); Essential (primary) hypertension; Chronic kidney disease, unspecified 03/27/2025 Lab Requisition [facility] Lab [address] [facility] [place] [phone] Noel Hooks MD Type 2 diabetes mellitus without complications (CMS/HCC V24, CMS/HCC V28); Essential (primary) hypertension; Chronic kidney disease, unspecified 03/26/2025 Lab Requisition [facility] Lab [address] [facility] [place] [phone] Noel Hooks MD Type 2 diabetes mellitus without complications (CMS/HCC V24, CMS/HCC V28); Essential (primary) hypertension; Chronic kidney disease, unspecified 03/25/2025 Lab Requisition [facility] Lab [address] [place] [address] Noel Hooks MD Type 2 diabetes mellitus without complications ([facility] V24, [facility] V28); Essential (primary) hypertension; Chronic kidney disease, unspecified 03/25/2025 Lab Requisition [facility] Lab [address] [place] [address] Noel Hooks MD Essential (primary) hypertension; Type 2 diabetes mellitus without complications ([facility] V24, [facility] V28); Chronic kidney disease, stage 3 unspecified ([facility] V24, [facility] V28) from Last 3 Months Social History Tobacco Use Types Packs/Day Years Used Date Smoking Tobacco: Never Assessed Comments Unknown Sex and Gender Information Value Date Recorded Sex Assigned at Not on file Legal Sex Female 4:50 AM EST Gender Identity Not on file Sexual Orientation Not on file Plan of Treatment Health Maintenance Due Date Last Done Comments Breast Cancer Screening 1952 Diabetes: Annual Foot Exam 1962 Diabetes: Annual Retina Eye Exam 1962 DTaP,Tdap,and Td Vaccines (1 - Tdap) 1971 Pneumococcal Vaccine: 50+ Years (1 of 2 - PCV) 1971 Zoster Vaccines (1 of 2) 2002 COVID-19 Vaccine (1 - season) 2024 Depression Screening 08/27/2024 Cholesterol Screening (Lipid Panel) 03/25/2025 Colorectal Cancer Screening: Colonoscopy 03/25/2025 Diabetes: Annual Urine Albumin-Creatinine Ratio (uACR) 03/25/2025 Diabetes: Blood Sugar Control Test (HGBA1C) 03/25/2025 Falls Risk Assessment 03/25/2025 Hepatitis C Screening 03/25/2025 Osteoporosis Screening (Bone Density Screening) 03/25/2025 Social Influencers of Health Screening 03/25/2025 Influenza Vaccine (#1) 2025 Diabetes: Annual GFR (Glomerular Filtration Rate) 04/02/2026 04/02/2025, 03/30/2025, 03/26/2025, Additional history exists Hypertension/CHF/CAD Annual BMP Blood Test 04/02/2026 04/02/2025, 03/30/2025, 03/26/2025, Additional history exists RSV Immunization Adult Patients (1 - 1-dose 75+ series) 2027 HIB [...] to complete this topic RSV Immunization Patients Under 20 months Aged Out No longer eligible based on patient's age to complete this topic Varicella Vaccines Aged Out No longer eligible based on patient's age to complete this topic Procedures Procedure Name Priority Date/Time Associated Diagnosis Comments URINALYSIS WITH REFLEX MICROSCOPIC Routine 04/05/2025 4:00 PM EDT Dysuria URINALYSIS WITH REFLEX MICROSCOPIC Routine 04/05/2025 4:00 PM EDT Dysuria CULTURE URINE Routine 04/05/2025 4:00 PM EDT Dysuria BASIC METABOLIC PANEL Routine 04/02/2025 6:14 AM EDT Type 2 diabetes mellitus without complications (CMS/HCC V24, CMS/HCC V28) Essential (primary) hypertension Chronic kidney disease, unspecified COMPLETE BLOOD COUNT Routine 04/02/2025 6:14 AM EDT Type 2 diabetes mellitus without complications (CMS/HCC V24, CMS/HCC V28) Essential (primary) hypertension Chronic kidney disease, unspecified COMPREHENSIVE METABOLIC PANEL Routine 03/30/2025 5:58 AM EDT Type 2 diabetes mellitus without complications (CMS/HCC V24, CMS/HCC V28) Essential (primary) hypertension Chronic kidney disease, unspecified COMPLETE BLOOD COUNT Routine 03/30/2025 5:58 AM EDT Type 2 diabetes mellitus without complications (CMS/HCC V24, CMS/HCC V28) Essential (primary) hypertension Chronic kidney disease, unspecified BASIC METABOLIC PANEL Routine 03/26/2025 6:04 AM EDT Type 2 diabetes mellitus without complications (CMS/HCC V24, CMS/HCC V28) Essential (primary) hypertension Chronic kidney disease, unspecified COMPLETE BLOOD COUNT Routine 03/26/2025 6:04 AM EDT Type 2 diabetes mellitus without complications (CMS/HCC V24, CMS/HCC V28) Essential (primary) hypertension Chronic kidney disease, unspecified COMPREHENSIVE METABOLIC PANEL Routine 03/25/2025 5:15 AM EDT Essential (primary) hypertension Type 2 diabetes mellitus without complications (CMS/HCC V24, CMS/HCC V28) Chronic kidney disease, stage 3 unspecified (CMS/HCC V24, CMS/HCC V28) COMPLETE BLOOD COUNT Routine 03/25/2025 5:15 AM EDT Essential (primary) hypertension Type 2 diabetes mellitus without complications (CMS/HCC V24, CMS/HCC V28) Chronic kidney disease, stage 3 unspecified (CMS/HCC V24, CMS/HCC V28) from Last 3 Months Results * (ABNORMAL) Urinalysis with reflex microscopic (04/05/2025 4:00 PM EDT) Pathologist [facility] Specific [place] Urine 1.014 1.003 - 1.030 LAB URINALYSIS - AUTOMATED METHOD 04/06/2025 12:10 PM EDT [facility] pH, Urine 6.0 5.0 - 8.0 pH LAB URINALYSIS - AUTOMATED METHOD 04/06/2025 12:10 PM [facility] Leukocytes, Urine Large(A) Negative LAB URINALYSIS - AUTOMATED METHOD 04/06/2025 12:10 PM [facility] Nitrite, Urine Negative Negative LAB URINALYSIS - AUTOMATED METHOD 04/06/2025 12:10 PM [facility] Protein, Urine 30(A) <=Trace mg/dL LAB URINALYSIS - AUTOMATED METHOD 04/06/2025 12:10 PM [facility] Glucose, Urine Negative Negative mg/dL LAB URINALYSIS - AUTOMATED METHOD 04/06/2025 12:10 PM [facility] Ketones, Urine Negative Negative mg/dL LAB URINALYSIS - AUTOMATED METHOD 04/06/2025 12:10 PM [facility] Urobilinogen, Urine 0.2 0.2 - 1.0 mg/dL LAB URINALYSIS - AUTOMATED METHOD 04/06/2025 12:10 PM [facility] Bilirubin, Urine Negative Negative LAB URINALYSIS - AUTOMATED METHOD 04/06/2025 12:10 PM [facility] Blood, Urine Small(A) Negative LAB URINALYSIS - AUTOMATED METHOD 04/06/2025 12:10 PM [facility] RBC, Urine 3.2 0 - 4 /HPF LAB URINALYSIS - AUTOMATED METHOD 04/06/2025 12:10 PM [facility] WBC, Urine 88.7(H) 0 - 4 /HPF LAB URINALYSIS - AUTOMATED METHOD 04/06/2025 12:10 PM [facility] Squamous Epithelial, Urine 9 0 - 60 /LPF LAB URINALYSIS - AUTOMATED METHOD 04/06/2025 12:10 PM [facility] Bacteria, Urine Negative Negative /HPF LAB URINALYSIS - AUTOMATED METHOD 04/06/2025 12:10 PM [facility] Hyaline Casts, Urine 1.6 0 - 3 /LPF LAB URINALYSIS - AUTOMATED METHOD 04/06/2025 12:10 PM EDT [facility] Urine Urine specimen obtained by clean catch procedure / Unknown 04/05/2025 4:00 PM EDT 04/06/2025 11:55 AM EDT us Noel Hooks MD LAB URINE ORDERABLES Final Resu lt [facility] [address] [place] [address], [place] [phone] * (ABNORMAL) Culture urine (04/05/2025 4:00 PM EDT) Culture, Urine >=100,000 CFU/mL Klebsiella pneumoniae ssp pneumoniae(A) HIRAM 04/08/2025 9:37 AM EDT [facility] Comment: This is an edited [...] Susceptible Noel Hooks MD LAB MICROBIOLOGY - GENERAL MARIAJOSE DUGAN Final Result [facility] [address] [place] [address], * (ABNORMAL) Complete blood count (04/02/2025 6:14 AM EDT) Only the most recent of4 resultswithin the time period is included. WBC 4.0(L) 4.8 - 10.8 K/mcL LAB HEMETOLOGY METHOD 04/02/2025 10:13 AM EDT [facility] RBC 3.20(L) 3.80 - 4.80 M/mcL LAB HEMETOLOGY METHOD 04/02/2025 10:13 AM EDT [facility] Hemoglobin 9.4(L) 11.5 - 16.0 g/dL LAB HEMETOLOGY METHOD 04/02/2025 10:13 AM EDT [facility] Hematocrit 30.6(L) 35.0 - 47.0 % LAB HEMETOLOGY METHOD 04/02/2025 10:13 AM EDT [facility] MCV 94.7 79.0 - 98.0 FL LAB HEMETOLOGY METHOD 04/02/2025 10:13 AM EDT [facility] MCH 29.1 27.0 - 32.0 pcg LAB HEMETOLOGY METHOD 04/02/2025 10:13 AM EDT [facility] MCHC 30.7(L) 32.0 - 37.0 g/dL LAB HEMETOLOGY METHOD 04/02/2025 10:13 AM EDT [facility] RDW 14.0 11.0 - 15.0 % LAB HEMETOLOGY METHOD 04/02/2025 10:13 AM EDT [facility] Platelets 234 130 - 400 K/mcL [facility] 04/02/2025 10:13 AM EDT [facility] MPV 10.9 7.0 - 11.0 FL LAB HEMETOLOGY METHOD 04/02/2025 10:13 AM EDT [facility] NRBC 0.0 <1.0 % LAB HEMETOLOGY METHOD 04/02/2025 10:13 AM EDT [facility] NRBC Absolute 0.00 <0.10 K/mcL [facility] 04/02/2025 10:13 AM [facility] Blood Venous blood specimen / Unknown Venipuncture / Unknown 04/02/2025 6:14 AM EDT 04/02/2025 9:52 AM EDT us Noel Hooks MD LAB BLOOD ORDERABLES Final Resu lt [facility] [address] [place] [address], * (ABNORMAL) Basic metabolic panel (04/02/2025 6:14 AM EDT) Only the most recent of2 resultswithin the time period is included. Sodium 141 133 - 145 mmol/L LAB CHEMISTRY METHOD 04/02/2025 10:45 AM EDT [facility] Potassium 5.0 3.5 - 5.5 mmol/L LAB CHEMISTRY METHOD 04/02/2025 10:45 AM EDT [facility] Chloride 108 96 - 110 mmol/L LAB CHEMISTRY METHOD 04/02/2025 10:45 AM EDT [facility] CO2 30 21 - 32 mmol/L LAB CHEMISTRY METHOD 04/02/2025 10:45 AM EDT [facility] Anion Gap 3 3 - 11 LAB CHEMISTRY METHOD 04/02/2025 10:45 AM EDT [facility] Glucose 209(H) 70 - 100 mg/dL LAB CHEMISTRY METHOD 04/02/2025 10:45 AM [facility] BUN 29(H) 5 - 25 mg/dL LAB CHEMISTRY METHOD 04/02/2025 10:45 AM EDT [facility] Creatinine 1.41(H) 0.50 - 1.10 mg/dL LAB CHEMISTRY METHOD 04/02/2025 10:45 AM [facility] eGFR 40(L) >=60 mL/min/1. 73m2 LAB CHEMISTRY METHOD 04/02/2025 10:45 AM [facility] Comment:Calculation based on the Chronic Kidney Disease Epidemiology Collaboration (CKD-EPI) equation refit without adjustment for race. BUN/Creatinine Ratio 20.6 LAB CHEMISTRY METHOD 04/02/2025 10:45 AM EDT [facility] Calcium 9.3 8.5 - 10.5 mg/dL LAB CHEMISTRY METHOD 04/02/2025 10:45 AM [facility] Blood Venous blood specimen / Unknown Venipuncture / Unknown 04/02/2025 6:14 AM EDT 04/02/2025 9:51 AM EDT us Noel Hooks MD LAB BLOOD ORDERABLES Final Resu lt [facility] [address] [place] [address], * (ABNORMAL) Comprehensive metabolic panel (03/30/2025 5:58 AM EDT) Only the most recent of2 resultswithin the time period is included. Sodium 141 133 - 145 mmol/L LAB CHEMISTRY METHOD 03/30/2025 1:19 PM EDT [facility] Potassium 4.6 3.5 - 5.5 mmol/L LAB CHEMISTRY METHOD 03/30/2025 1:19 PM [facility] Chloride 107 96 - 110 mmol/L LAB CHEMISTRY METHOD 03/30/2025 1:19 PM [facility] CO2 28 21 - 32 mmol/L LAB CHEMISTRY METHOD 03/30/2025 1:19 PM [facility] Anion Gap 6 3 - 11 LAB CHEMISTRY METHOD 03/30/2025 1:19 PM [facility] Glucose 105(H) 70 - 100 mg/dL LAB CHEMISTRY METHOD 03/30/2025 1:19 PM [facility] BUN 29(H) 5 - 25 mg/dL LAB CHEMISTRY METHOD 03/30/2025 1:19 PM [facility] Creatinine 1.26(H) 0.50 - 1.10 mg/dL LAB CHEMISTRY METHOD 03/30/2025 1:19 PM [facility] eGFR 45(L) >=60 mL/min/1. 73m2 LAB CHEMISTRY METHOD 03/30/2025 1:19 PM [facility] Comment:Calculation based on the Chronic Kidney Disease Epidemiology Collaboration (CKD-EPI) equation refit without adjustment for race. BUN/Creatinine Ratio 23.0 LAB CHEMISTRY METHOD 03/30/2025 1:19 PM [facility] Calcium 9.6 8.5 - 10.5 mg/dL LAB CHEMISTRY METHOD 03/30/2025 1:19 PM [facility] AST (SGOT) 14 10 - 42 unit/L LAB CHEMISTRY METHOD 03/30/2025 1:19 PM [facility] ALT (SGPT) 19 10 - 60 unit/L LAB CHEMISTRY METHOD 03/30/2025 1:19 PM [facility] Alkaline Phosphatase 52 42 - 121 unit/L LAB CHEMISTRY METHOD 03/30/2025 1:19 PM [facility] Total Protein 6.2 6.0 - 8.0 g/dL LAB CHEMISTRY METHOD 03/30/2025 1:19 PM EDT [facility] Albumin 3.5 3.2 - 5.0 g/dL LAB CHEMISTRY METHOD 03/30/2025 1:19 PM EDT [facility] Total Bilirubin 0.2 0.0 - 1.4 mg/dL LAB CHEMISTRY METHOD 03/30/2025 1:19 PM EDT [facility] Blood Venous blood specimen / Unknown Venipuncture / Unknown 03/30/2025 5:58 AM EDT 03/30/2025 10:45 AM EDT Noel Hooks MD LAB BLOOD ORDERABLES Final Resu lt [facility] [address] [place] [address], from Last 3 Months Insurance [employer] Care Teams Wood Model Maker Relationship Specialty Start Date End Date Noel Hooks MD [address] [place] [address] PCP - General Internal Medicine 03/25/25
--- OUTSIDE RECORDS SUMMARY | 2025-04-23 12:17 | XMS_ITS | Patient Health Record ---
Author Organization [facility] Address [address] [place] [address] Care Team Providers Care Manager Cafe Name Role Phone Sherwin Champion MD Primary Care Provider Alphonso Richter Unavailable [phone] Allergies Allergen (clinical drug ingredient) Drug/Non Drug Allergy documented on EMR Reaction Allergy Type Onset Date Status Latex Latex swelling, itching Allergy Active Results Component Value Reference Range Notes HEMOGLOBIN A1C (GLYCOHEMOGLO BIN) Reviewed date:01/28/2025 02:30:02 PM Interpretation: Performing Lab: Notes/Report: HEMOGLOBIN A1C % (HH) 10 Reason For Referral No Information Medications Medication SIG (Take, Route, Frequency, Duration) Notes Start Date End Date Status Dorzolamide HCl-Timolol Mal 22.3-6.8 MG/ML 1 drop into affected eye Ophthalmic Twice a day 05/03/2023 Active Enalapril Maleate 20 MG 1 tablet Orally Once a day Active Atorvastatin Calcium 40 MG 1 tablet Oral ly Once a day; Duration: 30 day(s) 05/03/2023 Active Citalopram Hydrobromide 10 MG 1 tablet Orally Once a day; Duration: 30 day(s) 05/03/2023 Active Lantus 10 units once a day Active Simvastatin 40 MG 1 tablet in the evening Orally Once a day Active Extra Depth Orthopedic Shoes (1 Pair) with Customized Heat Molded Multidensity Innersoles (3 Pair) as directed Dx: NIDDM (E11.9), Hammertoe Foot Deformity (M20.41,M20.42), Preulcerative Skin Lesion(s) (L85.1) Active Alendronate Sodium 70 MG 1 tablet 30 min utes before the first food, beverage or medicine of the day with plain water Orally; Duration: 30 day(s) 05/03/2023 Active Ciclopirox Olamine 0.77 % 1 application Externally Twice a day to skin of feet including between the toes; Duration: 30 days Active metFORMIN HCl 850 MG 1 tablet with a grant l Orally Once a day Active Pantoprazole Sodium 20 MG 1 tablet Orall y Once a day Active glipiZIDE 10 MG 1 tablet 30 minutes before breakfast Orally Once a day Active hydroCHLOROthiazide 12.5 MG 1 capsule in the morning Orally Once a day Active Fluticasone Propionate 50 MCG/ACT 1 spray in each nostril Nasally Once a day Active Immunizations Vaccine Route Administration Date Status Comme nts Influenza Unknown 07/28/2024 Administered Social History Tobacco Use: Social History Observation [...] Problem Acquired hammer toe of right foot (2395721745388 105) Other hammer toe(s) (acquired), right foot (M20.41) Active confirmed Response to treatment,I mprovement Problem Type 2 diabetes mellitus with peripheral angiopathy (693894872) Type 2 diabetes mellitus with diabetic peripheral angiopathy without gangrene (E11.51) Active confirmed Q7(A), Q8(2B), Q9(1B,2C) Problem Acquired hammer toe of left foot (4361070247636 103) Other hammer toe(s) (acquired), left foot (M20.42) Active confirmed Response to treatment,I mprovement Vital Signs Blood pressure diastolic 71 mm Hg 01/28/2025 Height 5ft 4in in 01/28/2025 Blood pressure systolic 124 mm Hg 01/28/2025 Weight 180 lbs 01/28/2025 BMI 30.89 kg/m2 01/28/2025 Procedures Procedure Date Ordered Date Performed Result Body Sit e 51255-TVTHZLF NAIL, 6 OR MORE 07/30/2024 N/A 19636-WWAW SKIN LESIONS, 2 TO 4 07/30/2024 N/A 65911-CEHICQF NAIL, 6 OR MORE 10/29/2024 N/A 67898-WBCU SKIN LESIONS, 2 TO 4 10/29/2024 N/A 21310-GACMAQJ NAIL, 6 OR MORE 01/28/2025 N/A 60347-Elpihgnb Plate 01/28/2025 N/A 18094-JLFA SKIN LESIONS, 2 TO 4 01/28/2025 N/A Encounters Encounter Location Date Provider Diagnosis [address] [address] 07/30/2024 Alphonso Chance Type 2 diabetes mellitus with diabetic peripheral angiopathy without gangrene E11.51 ; Tinea unguium B35.1 ; Pain in right toe(s) M79.674 ; Pain in left toe(s) M79.675 and Tinea pedis of both feet B35.[address] [address] 10/29/2024 Alphonso Chauunier Type 2 diabetes mellitus with diabetic peripheral angiopathy without gangrene E11.51 ; Tinea unguium B35.1 ; Pain in right toe(s) M79.674 ; Pain in left toe(s) M79.675 and Tinea pedis of both feet B35.[address] [address] 01/28/2025 Alphonso Chance Type 2 diabetes mellitus with diabetic peripheral angiopathy without gangrene E11.51 ; Other hammer toe(s) (acquired), right foot M20.41 ; Tinea unguium B35.1 ; Pain in right toe(s) M79.674 ; Pain in left toe(s) M79.675 ; Other hammer toe(s) (acquired), left foot [...] Q9(1B,2C) 10/29/2024 Tinea unguium (ICD-10 - B35.1) 01/28/2025 Other hammer toe(s) (acquired), right foot (ICD-10 - M20.41) Patient Educated with: DIABETIC FOOT CARE INSTRUCTIONS.p df (DIABETIC FOOT CARE INSTRUCTIONS.p df) 01/28/2025 Type 2 diabetes mellitus with diabetic peripheral angiopathy without gangrene (ICD-10 - E11.51) 10/29/2024 Pain in right toe(s) (ICD-10 - M79.674) 07/30/2024 Pain in right toe(s) (ICD-10 - M79.674) 01/28/2025 Tinea unguium (ICD-10 - B35.1) 01/28/2025 Pain in right toe(s) (ICD-10 - M79.674) 07/30/2024 Pain in left toe(s) (ICD-10 - M79.675) 10/29/2024 Pain in left toe(s) (ICD-10 - M79.675) 07/30/2024 Tinea pedis of both feet (ICD-10 - B35.3) 10/29/2024 Tinea pedis of both feet (ICD-10 - B35.3) 01/28/2025 Pain in left toe(s) (ICD-10 - M79.675) 01/28/2025 Other hammer toe(s) (acquired), left foot (ICD-10 - M20.42) 01/28/2025 Ingrown nail (ICD-10 - L60.0) Plan Of Treatment Pending Test Test Name Order Date 64600-FXUIWLM NAIL, 6 OR MORE 06/20/2023 82316-DXFKJIG NAIL, 6 OR MORE 10/18/2023 54596-OTTDUHQ NAIL, 6 OR MORE 12/27/2023 71677-IASCFVV NAIL, 6 OR MORE 04/21/2024 48664-FOJUABE NAIL, 6 OR MORE 07/30/2024 51873-JCRKENS NAIL, 6 OR MORE 10/29/2024 57758-TCRCLGN NAIL, 6 OR MORE 01/28/2025 69874-Kgvawsas Plate 10/18/2023 83805-Zbytczve Plate 04/21/2024 53663-Qkhxpxiw Plate 01/28/2025 99171- Debride <25 sq cm 08/17/2023 50645-MFXK SKIN LESIONS, 2 TO 4 12/27/19 56700-EIDB SKIN LESIONS, 2 TO 4 10/18/19 31775-MRIT SKIN LESIONS, 2 TO 4 06/20/20 23 63603-FNTT SKIN LESIONS, 2 TO 4 01/29/20 89924-AUYE SKIN LESIONS, 2 TO 4 10/30/19 63539-BUIR SKIN LESIONS, 2 TO 4 07/30/20 24 94268-TMXF SKIN LESIONS, 2 TO 4 04/21/20 Next Appt Details Provider Name:Alphonso Chance , 04/29/2025 02:30:00 PM, [address] [facility], [facility] [address], [place], [address], Insurance Providers Payer Name Payer Address Payer Phone Subscriber Number Group Number Insured Name Patient Relationship to Insured Coverage Start Date Coverage End Date [employer] Medicare Open [address] [place] [address] [id number] Deb Ruff Self - patient is the insured Medical (General) History Medical History History ICD Code CAD (Cholesterol) type II diabetes High blood pressure Measles Mumps Chicken pox
--- OUTSIDE RECORDS SUMMARY | 2025-04-23 12:17 | XMS_ITS | Encounter Summary ---
Author Organization [facility] Address [address] [place] [address] Care Team Providers Care Zigzag Elastic Attacher Name Role Phone Noel Hooks MD Primary Care Provider [phone] Encounter Details Date Type Department Care Team (Latest Contact Info) Description 04/03/2025 Lab Requisition [facility] - Main Lab [address] [facility] [place] [address] Noel Hooks MD [address] [place] [address] Type 2 diabetes mellitus without [...] unspecified documented in this encounter Care Teams Zigzag Elastic Attacher Relationship Specialty Start Date End Date Noel Hooks MD [address] [place] [address] PCP - General Internal Medicine 03/25/25 documented as of this encounter
--- OUTSIDE RECORDS SUMMARY | 2025-04-23 12:17 | XMS_ITS | Encounter Summary ---
Author Organization [facility] Address [address] [place] [address] Care Team Providers Care Dean Of Admissions Name Role Phone Noel Hooks MD Primary Care Provider [phone] Encounter Details Date Type Department Care Team (Latest Contact Info) Description 10/13/2022 Lab Requisition [facility] [address] [facility] [place] [phone] John Martin MD [address] [address] Encounter for preprocedural laboratory examination Social History [...] preprocedural laboratory examination documented in this encounter Care Teams Dean Of Admissions Relationship Specialty Start Date End Date Noel Hooks MD [address] [place] [phone] PCP - General Internal Medicine 03/25/25 documented as of this encounter
--- OUTSIDE RECORDS SUMMARY | 2025-04-23 12:17 | XMS_ITS | Encounter Summary ---
Author Organization [facility] Address [id number] [place] [phone] Care Team Providers Care Auto Vinyl Top Installer Name Role Phone Noel Hooks MD Primary Care Provider [phone] Encounter Details Date Type Department Care Team (Latest Contact Info) Description 03/25/2025 Lab Requisition [facility] - Main Lab [address] [facility] [place] [address] Noel Hooks MD [address] [place] [address] Essential (primary) hypertension; Type 2 diabetes mellitus without complications (CMS/HCC V24, CMS/HCC V28); Chronic kidney disease, stage 3 unspecified (CMS/HCC V24, CMS/HCC V28) Social History Tobacco Use Types Packs/Day Years [...] Associated Diagnosis Comments COMPLETE BLOOD COUNT Routine 03/25/2025 5:15 AM EDT Essential (primary) hypertension Type 2 diabetes mellitus without complications (CMS/HCC V24, CMS/HCC V28) Chronic kidney disease, stage 3 unspecified (CMS/HCC V24, CMS/HCC V28) COMPREHENSIVE METABOLIC PANEL Routine 03/25/2025 5:15 AM EDT Essential (primary) hypertension Type 2 diabetes mellitus without complications (CMS/HCC V24, CMS/HCC V28) Chronic kidney disease, stage 3 unspecified (CMS/HCC V24, CMS/HCC V28) documented in this encounter Results * (ABNORMAL) Comprehensive metabolic panel (03/25/2025 5:15 AM EDT) Sodium 137 133 - 145 mmol/L LAB CHEMISTRY METHOD 03/25/2025 11:09 AM [facility] Potassium 4.6 3.5 - 5.5 mmol/L LAB CHEMISTRY METHOD 03/25/2025 11:09 AM [facility] Chloride 106 96 - 110 mmol/L LAB CHEMISTRY METHOD 03/25/2025 11:09 AM [facility] CO2 26 21 - 32 mmol/L LAB CHEMISTRY METHOD 03/25/2025 11:09 AM [facility] Anion Gap 5 3 - 11 LAB CHEMISTRY METHOD 03/25/2025 11:09 AM [facility] Glucose 151(H) 70 - 100 mg/dL LAB CHEMISTRY METHOD 03/25/2025 11:09 AM [facility] BUN 31(H) 5 - 25 mg/dL LAB CHEMISTRY METHOD 03/25/2025 11:09 AM [facility] Creatinine 1.50(H) 0.50 - 1.10 mg/dL LAB CHEMISTRY METHOD 03/25/2025 11:09 AM [facility] eGFR 37(L) >=60 mL/min/1. 73m2 LAB CHEMISTRY METHOD 03/25/2025 11:09 AM [facility] Comment:Calculation based on the Chronic Kidney Disease Epidemiology Collaboration (CKD-EPI) equation refit without adjustment for race. BUN/Creatinine Ratio 20.7 LAB CHEMISTRY METHOD 03/25/2025 11:09 AM [facility] Calcium 9.5 8.5 - 10.5 mg/dL LAB CHEMISTRY METHOD 03/25/2025 11:09 AM [facility] AST (SGOT) 19 10 - 42 unit/L LAB CHEMISTRY METHOD 03/25/2025 11:09 AM EDT [facility] ALT (SGPT) 18 10 - 60 unit/L LAB CHEMISTRY METHOD 03/25/2025 11:09 AM EDT [facility] Alkaline Phosphatase 57 42 - 121 unit/L LAB CHEMISTRY METHOD 03/25/2025 11:09 AM [facility] Total Protein 6.2 6.0 - 8.0 g/dL LAB CHEMISTRY METHOD 03/25/2025 11:09 AM [facility] Albumin 3.3 3.2 - 5.0 g/dL LAB CHEMISTRY METHOD 03/25/2025 11:09 AM [facility] Total Bilirubin 0.5 0.0 - 1.4 mg/dL LAB CHEMISTRY METHOD 03/25/2025 11:09 AM [facility] Blood Venous blood specimen / Unknown Venipuncture / Unknown 03/25/2025 5:15 AM EDT 03/25/2025 9:47 AM EDT us Noel Hooks MD LAB BLOOD ORDERABLES Final Resu lt [facility] [address] [place] [address], [place] [phone] * (ABNORMAL) Complete blood count (03/25/2025 5:15 AM EDT) WBC 4.9 4.8 - 10.8 K/mcL LAB HEMETOLOGY METHOD 03/25/2025 10:29 AM EDT [facility] RBC 3.50(L) 3.80 - 4.80 M/mcL LAB HEMETOLOGY METHOD 03/25/2025 10:29 AM EDT [facility] Hemoglobin 10.1(L) 11.5 - 16.0 g/dL LAB HEMETOLOGY METHOD 03/25/2025 10:29 AM EDT [facility] Hematocrit 32.3(L) 35.0 - 47.0 % LAB HEMETOLOGY METHOD 03/25/2025 10:29 AM EDT [facility] MCV 93.1 79.0 - 98.0 FL LAB HEMETOLOGY METHOD 03/25/2025 10:29 AM EDT [facility] MCH 29.1 27.0 - 32.0 pcg LAB HEMETOLOGY METHOD 03/25/2025 10:29 AM EDT [facility] MCHC 31.3(L) 32.0 - 37.0 g/dL LAB HEMETOLOGY METHOD 03/25/2025 10:29 AM EDT [facility] RDW 14.3 11.0 - 15.0 % LAB HEMETOLOGY METHOD 03/25/2025 10:29 AM EDT [facility] Platelets 200 130 - 400 K/mcL LAB HEMETOLOGY METHOD 03/25/2025 10:29 AM EDT [facility] MPV 11.0 7.0 - 11.0 FL LAB HEMETOLOGY METHOD 03/25/2025 10:29 AM EDT [facility] NRBC 0.0 <1.0 % LAB HEMETOLOGY METHOD 03/25/2025 10:29 AM EDT [facility] NRBC Absolute 0.00 <0.10 K/mcL LAB HEMETOLOGY METHOD 03/25/2025 10:29 AM EDT [facility] Blood Venous blood specimen / Unknown Venipuncture / Unknown 03/25/2025 5:15 AM EDT 03/25/2025 9:47 AM EDT us Noel Hooks MD LAB BLOOD ORDERABLES Final Resu lt [facility] [address] [place] [address], documented in this encounter Visit Diagnoses Diagnosis Essential (primary) hypertension Unspecified essential hypertension Type 2 diabetes mellitus without complications (CMS/[facility] V24, [facility] V28) Chronic kidney disease, stage 3 unspecified ([facility] V24[facility] V28) documented in this encounter Care Teams Auto Vinyl Top Installer Relationship Specialty Start Date End Date Noel Hooks MD [address] [place] [address] PCP - General Internal Medicine 03/25/25 documented as of this encounter
--- OUTSIDE RECORDS SUMMARY | 2025-04-23 12:17 | XMS_ITS | Encounter Summary ---
Author Organization [facility] Address [address] [place] [phone] Care Team Providers Care Well Treatment Offsider Name Role Phone Noel Hooks MD Primary Care Provider [phone] Encounter Details Date Type Department Care Team (Latest Contact Info) Description 04/01/2025 Lab Requisition [facility] - Main Lab [address] [facility] [place] [address] Noel Hooks MD [address] [place] [address] Type 2 diabetes mellitus without [...] Associated Diagnosis Comments COMPLETE BLOOD COUNT Routine 04/02/2025 6:14 AM EDT Type 2 diabetes mellitus without complications (CMS/HCC V24, CMS/HCC V28) Essential (primary) hypertension Chronic kidney disease, unspecified BASIC METABOLIC PANEL Routine 04/02/2025 6:14 AM EDT Type 2 diabetes mellitus without complications (CMS/HCC V24, CMS/HCC V28) Essential (primary) hypertension Chronic kidney disease, unspecified documented in this encounter Results * (ABNORMAL) Basic metabolic panel (04/02/2025 6:14 AM EDT) Sodium 141 133 - 145 mmol/L LAB CHEMISTRY METHOD 04/02/2025 10:45 AM [facility] Potassium 5.0 3.5 - 5.5 mmol/L LAB CHEMISTRY METHOD 04/02/2025 10:45 AM [facility] Chloride 108 96 - 110 mmol/L LAB CHEMISTRY METHOD 04/02/2025 10:45 AM [facility] CO2 30 21 - 32 mmol/L LAB CHEMISTRY METHOD 04/02/2025 10:45 AM [facility] Anion Gap 3 3 - 11 LAB CHEMISTRY METHOD 04/02/2025 10:45 AM [facility] Glucose 209(H) 70 - 100 mg/dL LAB CHEMISTRY METHOD 04/02/2025 10:45 AM [facility] BUN 29(H) 5 - 25 mg/dL LAB CHEMISTRY METHOD 04/02/2025 10:45 AM [facility] Creatinine 1.41(H) 0.50 - 1.10 mg/dL LAB CHEMISTRY METHOD 04/02/2025 10:45 AM [facility] eGFR 40(L) >=60 mL/min/1. 73m2 LAB CHEMISTRY METHOD 04/02/2025 10:45 AM [facility] Comment:Calculation based on the Chronic Kidney Disease Epidemiology Collaboration (CKD-EPI) equation refit without adjustment for race. BUN/Creatinine Ratio 20.6 LAB CHEMISTRY METHOD 04/02/2025 10:45 AM [facility] Calcium 9.3 8.5 - 10.5 mg/dL LAB CHEMISTRY METHOD 04/02/2025 10:45 AM [facility] Blood Venous blood specimen / Unknown Venipuncture / Unknown 04/02/2025 6:14 AM EDT 04/02/2025 9:51 AM EDT us Noel Hooks MD LAB BLOOD ORDERABLES Final Resu lt [facility] [address] [place] [address], * (ABNORMAL) Complete blood count (04/02/2025 6:14 AM EDT) WBC 4.0(L) 4.8 - 10.8 K/mcL LAB HEMETOLOGY METHOD 04/02/2025 10:13 AM EDT [facility] RBC 3.20(L) 3.80 - 4.80 M/[facility] LAB HEMETOLOGY METHOD 04/02/2025 10:13 AM EDT [facility] Hemoglobin 9.4(L) 11.5 - 16.0 g/dL LAB HEMETOLOGY METHOD 04/02/2025 10:13 AM EDT [facility] Hematocrit 30.6(L) 35.0 - 47.0 % LAB HEMETOLOGY METHOD 04/02/2025 10:13 AM EDT [facility] MCV 94.7 79.0 - 98.0 FL LAB HEMETOLOGY METHOD 04/02/2025 10:13 AM EDT [facility] MCH 29.1 27.0 - 32.0 pcg LAB HEMETOLOGY [facility] MCHC 30.7(L) 32.0 - 37.0 g/dL LAB HEMETOLOGY METHOD 04/02/2025 10:13 AM EDT [facility] RDW 14.0 11.0 - 15.0 % LAB HEMETOLOGY METHOD 04/02/2025 10:13 AM EDT [facility] Platelets 234 130 - 400 K/mcL LAB HEMETOLOGY METHOD 04/02/2025 10:13 AM EDT [facility] MPV 10.9 7.0 - 11.0 FL LAB HEMETOLOGY METHOD 04/02/2025 10:13 AM EDT [facility] NRBC 0.0 <1.0 % LAB HEMETOLOGY METHOD 04/02/2025 10:13 AM EDT [facility] NRBC Absolute 0.00 <0.10 K/mcL LAB HEMETOLOGY METHOD 04/02/2025 10:13 AM EDT [facility] Blood Venous blood specimen / Unknown Venipuncture / Unknown 04/02/2025 6:14 AM EDT 04/02/2025 9:52 AM EDT us Noel Hooks MD LAB BLOOD ORDERABLES Final Resu lt [facility] [address] [place] [address], documented in this encounter Visit Diagnoses Diagnosis Type 2 diabetes mellitus without complications (CMS/HCC V24, CMS/HCC V28) Essential (primary) hypertension Unspecified essential hypertension Chronic kidney disease, unspecified documented in this encounter Care Teams Well Treatment Offsider Relationship Specialty Start Date End Date Noel Hooks MD [address] [place] [phone] PCP - General Internal Medicine 03/25/25 documented as of this encounter
--- OUTSIDE RECORDS SUMMARY | 2025-04-23 12:17 | XMS_ITS | Encounter Summary ---
Author Organization [facility] Address [address] [place] [phone] Care Team Providers Care Office System Analyst Name Role Phone Noel Hooks MD Primary Care Provider [phone] Encounter Details Date Type Department Care Team (Latest Contact Info) Description 03/27/2025 Lab Requisition [facility] - Main Lab [address] [facility] [employer] [place] [address] Noel Hooks MD [address] [place] [address] Type 2 diabetes mellitus without [...] Associated Diagnosis Comments COMPLETE BLOOD COUNT Routine 03/30/2025 5:58 AM EDT Type 2 diabetes mellitus without complications (CMS/HCC V24, CMS/HCC V28) Essential (primary) hypertension Chronic kidney disease, unspecified COMPREHENSIVE METABOLIC PANEL Routine 03/30/2025 5:58 AM EDT Type 2 diabetes mellitus without complications (CMS/HCC V24, CMS/HCC V28) Essential (primary) hypertension Chronic kidney disease, unspecified documented in this encounter Results * (ABNORMAL) Comprehensive metabolic panel (03/30/2025 5:58 AM EDT) Sodium 141 133 - 145 mmol/L LAB CHEMISTRY METHOD 03/30/2025 1:19 PM [facility] Potassium 4.6 3.5 - 5.5 mmol/L LAB CHEMISTRY METHOD 03/30/2025 1:19 PM [facility] Chloride 107 96 - 110 mmol/L LAB CHEMISTRY METHOD 03/30/2025 1:19 PM [facility] CO2 28 21 - 32 mmol/L LAB CHEMISTRY METHOD 03/30/2025 1:19 PM [facility] Anion Gap 6 3 - 11 LAB CHEMISTRY METHOD 03/30/2025 1:19 PM [facility] Glucose 105(H) 70 - 100 mg/dL LAB CHEMISTRY METHOD 03/30/2025 1:19 PM [facility] BUN 29(H) 5 - 25 mg/dL LAB CHEMISTRY METHOD 03/30/2025 1:19 PM [facility] Creatinine 1.26(H) 0.50 - 1.10 mg/dL LAB CHEMISTRY METHOD 03/30/2025 1:19 PM [facility] eGFR 45(L) >=60 mL/min/1. 73m2 LAB CHEMISTRY METHOD 03/30/2025 1:19 PM [facility] Comment:Calculation based on the Chronic Kidney Disease Epidemiology Collaboration (CKD-EPI) equation refit without adjustment for race. BUN/Creatinine Ratio 23.0 LAB CHEMISTRY METHOD 03/30/2025 1:19 PM [facility] Calcium 9.6 8.5 - 10.5 mg/dL LAB CHEMISTRY METHOD 03/30/2025 1:19 PM [facility] AST (SGOT) 14 10 - 42 unit/L LAB CHEMISTRY METHOD 03/30/2025 1:19 PM [facility] ALT (SGPT) 19 10 - 60 unit/L LAB CHEMISTRY METHOD 03/30/2025 1:19 PM [facility] Alkaline Phosphatase 52 42 - 121 unit/L LAB CHEMISTRY METHOD 03/30/2025 1:[address] [facility] Total Protein 6.2 6.0 - 8.0 g/dL LAB CHEMISTRY METHOD 03/30/2025 1:[address] [facility] Albumin 3.5 3.2 - 5.0 g/dL LAB CHEMISTRY METHOD 03/30/2025 1:[address] [facility] Total Bilirubin 0.2 0.0 - 1.4 mg/dL LAB CHEMISTRY METHOD 03/30/2025 1:[address] [facility] Blood Venous blood specimen / Unknown Venipuncture / Unknown 03/30/2025 5:58 AM EDT 03/30/2025 10:45 AM EDT Noel Hooks MD LAB BLOOD ORDERABLES Final Resu lt [facility] [address] [place] [address], [place] [phone] * (ABNORMAL) Complete blood count (03/30/2025 5:58 AM EDT) WBC 4.4(L) 4.8 - 10.8 K/mcL LAB HEMETOLOGY METHOD 03/30/2025 12:[address] [facility] RBC 3.40(L) 3.80 - 4.80 M/mcL LAB HEMETOLOGY METHOD 03/30/2025 12:[address] [facility] Hemoglobin 9.9(L) 11.5 - 16.0 g/dL LAB HEMETOLOGY METHOD 03/30/2025 12:[address] [facility] Hematocrit 32.0(L) 35.0 - 47.0 % LAB HEMETOLOGY METHOD 03/30/2025 12:[address] [facility] MCV 94.4 79.0 - 98.0 FL LAB HEMETOLOGY METHOD 03/30/2025 12:[address] [facility] MCH 29.2 27.0 - 32.0 pcg LAB HEMETOLOGY METHOD 03/30/2025 12:[address] [facility] MCHC 30.9(L) 32.0 - 37.0 g/dL LAB HEMETOLOGY METHOD 03/30/2025 12:[address] [facility] RDW 14.1 11.0 - 15.0 % LAB HEMETOLOGY METHOD 03/30/2025 12:[address] [facility] Platelets 233 130 - 400 K/mcL LAB HEMETOLOGY METHOD 03/30/2025 12:[address] [facility] MPV 10.6 7.0 - 11.0 FL LAB HEMETOLOGY METHOD 03/30/2025 12:[address] [facility] NRBC 0.0 <1.0 % LAB HEMETOLOGY METHOD 03/30/2025 12:[address] [facility] NRBC Absolute 0.00 <0.10 K/mcL LAB HEMETOLOGY METHOD 03/30/2025 12:[address] [facility] Blood Venous blood specimen / Unknown Venipuncture / Unknown 03/30/2025 5:58 AM EDT 03/30/2025 10:50 AM EDT us Noel Hooks MD LAB BLOOD ORDERABLES Final Resu lt [facility] [address] [place] [address], documented in this encounter Visit Diagnoses Diagnosis Type 2 diabetes mellitus without complications (CMS/HCC V24, CMS/HCC V28) Essential (primary) hypertension Unspecified essential hypertension Chronic kidney disease, unspecified documented in this encounter Care Teams Office System Analyst Relationship Specialty Start Date End Date Noel Hooks MD [address] [place] [phone] PCP - General Internal Medicine 03/25/25 documented as of this encounter
== END 2025-04-23 12:13 | disposition home or self-care (01) ==
LOC: HO.HMCFM 10:49
PROVIDERS: PCP Family Medicine; Visit Provider Family Medicine
DX: I63.9 Cerebral infarction, unspecified (principal)